=== PATIENT | male | born 1965 | race African-American/Black ===

== ENCOUNTER 2021-07-12 05:41 | Outpatient (CLI) | payer MEDICARE, MEDICAID ==
[~2021-07-12] VITALS: Ht 185.5 cm; Wt 103.6 kg
[2021-07-12] MEDS ORDERED: LAMO100T5 PO (14:22)
[2021-07-12] MEDS ORDERED: MIRT45TA PO (14:22)
[2021-07-12] MEDS ORDERED: TIZA2CAP9 PO (14:22)
[2021-07-12] MEDS ORDERED: DEUT9TAB PO (14:22)
[2021-07-12] MEDS ORDERED: HYDR50CA3 PO (14:22)
[2021-07-12] MEDS ORDERED: CYCL10TA9 PO (14:22)
[2021-07-12] MEDS ORDERED: BUDE10.22 IH (14:22)
[2021-07-12] MEDS ORDERED: OMEP40CA6 PO (14:22)
[2021-07-12] MEDS ORDERED: CETI10TA23 PO (14:22)
[2021-07-12] MEDS ORDERED: LITH150C PO (14:22)
[2021-07-12] MEDS ORDERED: BENZ0.5T42 PO (14:22)
[2021-07-12] MEDS ORDERED: AMLO-250 PO (14:22)
== END 2021-07-13 08:16 | disposition home or self-care (01) ==
LOC: PREOP 05:41
PROVIDERS: ATTEND Surgery
DX: Z01.818 Encounter for other preprocedural examination (principal)

== ENCOUNTER → 2021-07-16 | Outpatient (CLI) | payer MEDICARE, MEDICAID ==
[~2021-07-16] MED LIST: AMLO-250 PO; BENZ0.5T42 PO; BUDE10.22 IH; CETI10TA23 PO; CYCL10TA9 PO; DEUT9TAB PO; HYDR50CA3 PO; LAMO100T5 PO; LITH150C PO; MIRT45TA PO; OMEP40CA6 PO; TIZA2CAP9 PO
== END ==
LOC: LAB FS 10:10
PROVIDERS: ATTEND Surgery
DX: Z01.812 Encounter for preprocedural laboratory examination (principal); Z12.11 Encounter for screening for malignant neoplasm of colon; K21.9 Gastro-esophageal reflux disease without esophagitis; Z20.822 Contact with and (suspected) exposure to COVID-19
CPT/HCPCS: 87635

== ENCOUNTER 2021-07-19 08:34 | Day surgery (SDC) | payer MEDICARE, MEDICAID ==
[~2021-07-19] VITALS: Ht 185.5 cm; Wt 103.6 kg
[2021-07-19] MEDS ORDERED: LACTATED RINGERS 1,000 ML IV ONE (08:38)
[2021-07-19 08:55] VITALS: BP 155/95
--- NOTE | 2021-07-19 09:23 | Progress Note-Pre Operative ---
Pre-Operative Progress Note H&P Reviewed The H&P was reviewed, patient examined and no changes noted. Time Seen by Provider: 09:21 Date H&P Reviewed: Jul 19, 2021 Time H&P Reviewed: 09:21 Pre-Operative Diagnosis: GERD, Screening colonoscopy, change in bowel habits, Family hx of colon CA RICKY TRAYLOR DO Jul 19, 2021 09:23
[2021-07-19 09:38] LABS: AMPHETAMINE SCREEN, URINE NEGATIVE (NEGATIVE); BARBITURATE SCREEN URINE NEGATIVE (NEGATIVE); BENZODIAZEPINES SCREEN URINE NEGATIVE (NEGATIVE); CANNABINOID SCREEN, URINE POSITIVE (NEGATIVE); COCAINE SCREEN URINE NEGATIVE (NEGATIVE); METHADONE STAT NEGATIVE (NEGATIVE); METHAMPHETAMINE SCREEN URINE S NEGATIVE (NEGATIVE); OPIATE SCREEN URINE NEGATIVE (NEGATIVE); OXYCODONE STAT NEGATIVE (NEGATIVE); PROPOXYPHENE STAT NEGATIVE (NEGATIVE); TRICYCLIC ANTIDEPRESSANTS SCRE NEGATIVE (NEGATIVE)
[2021-07-19] MEDS ORDERED: PROPOFOL INJECTION 50 ML IV ONE (09:56)
--- NOTE | 2021-07-19 10:26 | Anesthesia-General Post-Op ---
MAC Patient Condition Mental Status/LOC: Same as Preop Cardiovascular: Satisfactory Nausea/Vomiting: Absent Respiratory: Satisfactory Pain: Controlled Complications: Absent Post Op Complications Complications None Follow Up Care/Instructions Patient Instructions None needed. Anesthesiology Discharge Order Discharge Order Patient is doing well, no complaints, stable vital signs, no apparent adverse anesthesia problems. No complications reported per nursing. CHUCK WRIGHT CRNA Jul 19, 2021 10:26
--- NOTE | 2021-07-19 10:28 | Progress Note-Post Operative ---
Post-Operative Progess Note Surgeon (s)/Cardroom Worker (s) Surgeon RICKY TRAYLOR DO Cardroom Worker: None Pre-Operative Diagnosis GERD, Screening colonoscopy, change in bowel habits, Family hx of colon CA Post-Operative Diagnosis Gastritis Esophagitis Lg hiatal hernia poor prep int hemorrhoids Procedure & Operative Findings Date of Procedure 07/19/21 Procedure Performed/Findings EGD with bx Colonoscopy PROCEDURE NOTE: After informed consent was obtained, the patient was brought to the endoscopy suite, placed in bed in left lateral decubitus position. He was administered IV sedation by the BIRD TRAPPER who then monitored vitals the entire time, heart rate, blood pressure and pulse ox and the scope was inserted down the mouth through the esophagus into the stomach. On the way down, noted some esophagitis and a hiatal hernia; took a picture. Then pushed into the stomach and noted some Gastritis; pushed past the antrum into the duodenum, duodenum looked good. Pulled back and did a biopsy of the antrum. Then retroflexed the scope and saw a large hiatal hernia, took a picture of this and noted esophagitis. Pulled the scope into the GE junction, took another picture of the hiatal hernia and then did a biopsy of the GE junction. Pushed the scope back into the stomach, suctioned all the air out of the stomach. At this point pulled the scope up the esophagus and out the mouth. Switched camera, switched gloves, went down below, started the colonoscopy. Pushed in, but immediately noted formed stool, took pictures. Unable to get all the way to cecum because of the stool but able to get past hepatic flexure. Elected to slowly withdrew the scope, insufflating to look circumferentially at the melendez up the ascending colon to the hepatic flexure, then down the transverse colon (which was actually clean) to the splenic flexure, into the descending colon, down into the sigmoid and finally into the rectum. Again this area was almost completely occluded with formed stool. The patient tolerated the procedure and he recovered in the endoscopy suite. Anesthesia Type IV sedation by BIRD TRAPPER Estimated Blood Loss Estimated blood loss (mL): scant Specimens/Packing Specimens Removed antral bx Body of stomach bx GE jxn bx RICKY TRAYLOR DO Jul 19, 2021 10:28
[2021-07-19 10:30] VITALS: BP 127/79
--- NOTE | 2021-07-19 10:32 | Endoscopy Discharge Instruct ---
Endo Procedure/Findings Findings 1.: Hiatal Hernia 2.: Gastritis (and Esophagitis) 3.: Other Findings (Poor prep) 4.: Internal Hemorrhoids Discharge Instructions - Activity: You might feel a little sleepy until tomorrow. This is due to the medicine you received to relax you. Until tomorrow, you should: NOT drive a car, operate machinery or power tools. NOT drink any alcoholic beverages. NOT make any important decisions or sign importortant papers. Do not return to work until tomorrow, unless otherwise instructed. Resume previous activities tomorrow. Diet: Start by taking liquids. If you tolerate liquids, advance to solid food. 1.: EGD in 1 year 2.: Colonoscopy in 1 year (or sooner, unable to clear colon and therefore there could be polyps missed. In addition, unable to get to cecum because of retained fecal material.) Notify Physician - If you experience excessive bleeding, unusual abdominal pain, fever, or chest pain, contact your doctor immediately. RICKY TRAYLOR DO Jul 19, 2021 10:32
[2021-07-19 10:35] VITALS: BP 147/97
[2021-07-19 10:40] VITALS: BP 150/98
[2021-07-19 11:05] VITALS: BP 150/98
== END 2021-07-19 11:19 | disposition home or self-care (01) ==
LOC: ENDO 08:34
PROVIDERS: ATTEND Surgery
DX: R19.4 Change in bowel habit (principal); R19.7 Diarrhea, unspecified; K29.70 Gastritis, unspecified, without bleeding; K21.00 Gastro-esophageal reflux disease with esophagitis, without bleeding; K44.9 Diaphragmatic hernia without obstruction or gangrene; K64.8 Other hemorrhoids; I10 Essential (primary) hypertension; F32.9 Major depressive disorder, single episode, unspecified; Z87.891 Personal history of nicotine dependence; Z80.0 Family history of malignant neoplasm of digestive organs; Z79.899 Other long term (current) drug therapy; Z98.890 Other specified postprocedural states
CPT/HCPCS: 80306

== ENCOUNTER 2021-09-26 13:53 | Inpatient (IN) | payer MEDICARE, MEDICAID ==
[~2021-09-26] VITALS: Ht 185.4 cm; Wt 96.2 kg
[~2021-09-26 13:53] MED LIST changes: -CETI10TA23 PO; +CETI10TA24 PO; +CYCL10TA25 PO; -CYCL10TA9 PO
--- NOTE | 2021-09-26 13:57 | ED General ---
General Chief Complaint: COVID19 Suspect/Confirmed Stated Complaint: COVID POSITIVE Source of Information: Patient History of Present Illness Date Seen by Provider: Sep 26, 2021 Time Seen by Provider: 13:52 Initial Comments 56-year-old male presenting with complaints of shortness of breath, headache, fevers up to 101 Fahrenheit, cough, general malaise. He states that this has been going on for around 2 weeks but worse in the last several days. He had gone to urgent care today and they did a rapid Covid test that was positive. His oxygen saturation was 87 to 88% on room air and he was advised to come to [facility] emergency department. He refused ambulance transport so he came here with his mother. He lives with his mother and they both tested positive today when they were seen at urgent care. He states he has a history of high blood pressure and GERD. He also takes lithium for his mental health. He denies having nausea or vomiting but has had a few loose stools. He has had decreased urine output. He is easily winded and short of breath with exertion in the last couple of days. Timing/Duration: Other (sick for about 2 weeks but worse in last 3-4 days) Severity: Severe Modifying Factors: worse with Movement Associated Systoms: No Chest Pain; Cough, Diaphoresis, Fever/Chills, Headaches, Loss of Appetite, Malaise; No Nausea/Vomiting, No Rash, No Seizure; Shortness of Air; No Syncope; Weakness (general) Allergies and Home Medications Allergies Coded Allergies: No Known Drug Allergies (Unverified , 07/19/21) Patient Home Medication List Home Medication List Reviewed: Yes Amlodipine Besylate (Amlodipine Besylate) 5 Mg Tablet, 5 MG PO DAILY, (Reported) Entered as Reported by: FRANCK ZAYAS on 07/12/21 142 Benztropine Mesylate (Benztropine Mesylate) 0.5 Mg Tablet, 0.5 MG PO DAILY, (Reported) Entered as Reported by: FRANCK ZAYAS on 07/12/21 142 Budesonide/Formoterol Fumarate (Symbicort 80-4.5 Mcg Inhaler) 10.2 Gm Hfa.aer.ad, 2 PUFF IH BID, (Reported) Entered as Reported by: FRANCK ZAYAS on 07/12/21 142 Cetirizine HCl (Cetirizine HCl) 10 Mg Tab.chew, 10 MG PO DAILY, (Reported) Entered as Reported by: FRANCK ZAYAS on 07/12/211421 Cyclobenzaprine HCl (Cyclobenzaprine HCl) 10 Mg Tablet, 10 MG PO DAILY, (Reported) Entered as Reported by: FRANCK ZAYAS on 07/12/211421 Deutetrabenazine (Austedo) 9 Mg Tablet, 9 MG PO DAILY, (Reported) Entered as Reported by: FRANCK ZAYAS on 07/12/211421 Hydroxyzine Pamoate (Hydroxyzine Pamoate) 50 Mg Capsule, 50 MG PO DAILY, (Reported) Entered as Reported by: FRANCK ZAYAS on 07/12/211421 Lamotrigine (Lamotrigine) 100 Mg Tablet, 100 MG PO HS, (Reported) Entered as Reported by: FRANCK ZAYAS on 07/12/211421 [place] Carbonate ([place] Carbonate) 150 Mg Capsule, 150 MG PO DAILY, (Reported) Entered as Reported by: FRANCK ZAYAS on 07/12/211421 Mirtazapine (Mirtazapine) 45 Mg Tab.rapdis, 45 MG PO DAILY, (Reported) Entered as Reported by: FRANCK ZAYAS on 07/12/211421 Omeprazole (Omeprazole) 40 Mg Capsule.dr, 40 MG PO DAILY, (Reported) Entered as Reported by: FRANCK ZAYAS on 07/12/211421 Tizanidine HCl (Tizanidine HCl) 2 Mg Capsule, 2 MG PO DAILY, (Reported) Entered as Reported by: FRANCK ZAYAS on 07/12/211421 Review of Systems Review of Systems Constitutional: chills, diaphoresis, fever, malaise EENTM: hoarseness, nose congestion Respiratory: cough, short of breath; No stridor, No wheezing Cardiovascular: No chest pain; palpitations Gastrointestinal: see HPI; No nausea, No vomiting Genitourinary: decreased output Musculoskeletal: other (general body aches) Skin: No rash Psychiatric/Neurological: See HPI Past Kpxzooe-Pvgxvt-Itealp Hx Seasonal Allergies Seasonal Allergies: Yes Past Medical History Surgeries: No Respiratory: No Currently Using CPAP: No Cardiac: Yes Hypertension Neurological: No Sexually Transmitted Disease: No Genitourinary: No Gastrointestinal: No Musculoskeletal: No Endocrine: No HEENT: No Cancer: No Psychosocial: No Integumentary: No Blood Disorders: No Physical Exam Vital Signs Vital Signs - First Documented 09/26/21 14:08 Temp 35.9 Pulse 108 Resp 21 B/P (MAP) 175/115 (135) Pulse Ox 92 O2 Delivery Nasal Cannula O2 Flow Rate 3.00 Capillary Refill : Height, Weight, BMI Height: '" Weight: lbs. oz. kg; 30.10 BMI Method: General Appearance: Mild Distress HEENT: PERRL/EOMI; No Moist Mucous Membranes (dry mucous membranes); Pharyngeal Erythema; No Photophobia, No Tonsillar Exudate Neck: Full Range of Motion, Normal Inspection, Non Tender, Supple Respiratory: Chest Non Tender, Accessory Muscle Use, Decreased Breath Sounds, Rhonci; No Stridor, No Wheezing Cardiovascular: Normal Peripheral Pulses, Tachycardia Gastrointestinal: Normal Bowel Sounds, No Pulsatile Mass, Non Tender, Soft Rectal: Deferred Back: No CVA Tenderness Extremity: Normal Capillary Refill, Normal Inspection, No Pedal Edema Neurologic/Psychiatric: Alert, Oriented x3, 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 II-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 Norm as Tested Skin: Normal Color, Warm/Dry Focused Exam Sepsis Stage: Sepsis Possible Source: Pulmonary Lactate Level 09/26/21 14:50: Lactic Acid Level 4.15*H Time of Focused Exam: 15:42 Respiratory: Chest Non Tender, No Accessory Muscle Use, No Respiratory Distress, Decreased Breath Sounds, Rhonci; No Stridor, No Wheezing Cardiovascular: Regular Rate, Rhythm, Normal Peripheral Pulses Capillary Refill: Less Than 3 Seconds Peripheral Pulses: 2+ Radial Pulses (R) Skin: normal color, warm/dry Lactic Acid Level Laboratory Tests Test 09/26/21 14:50 Lactic Acid Level 4.15 MMOL/L (0.50-2.00) *H Within 3hrs of presentation: Admin fluids, Admin ABX, Blood cultures prior to ABX's, Focus exam, Lactate level Progress/Results/Core Measures Suspected Sepsis SIRS Temperature: Pulse: Respiratory Rate: Laboratory Tests 09/26/21 14:08: White Blood Count 9.8 Blood Pressure / Mean: 09/26/21 14:50: Lactic Acid Level 4.15*H Laboratory Tests 09/26/21 14:08: Creatinine 1.41H, INR Comment 0.9, Platelet Count 310, Total Bilirubin 0.7 Results/Orders Lab Results Laboratory Tests Test 09/26/21 14:08 09/26/21 14:25 09/26/21 14:50 Range/Units White Blood Count 9.8 4.3-11.0 10^3/uL Red Blood Count 5.95 H 4.30-5.52 10^6/uL Hemoglobin 18.0 H 13.3-17.7 g/dL Hematocrit 53 40-54 % Mean Corpuscular Volume 90 80-99 fL Mean Corpuscular Hemoglobin 30 25-34 pg Mean Corpuscular Hemoglobin Concent 34 32-36 g/dL Red Cell Distribution Width 13.1 10.0-14.5 % Platelet Count 310 130-400 10^3/uL Mean Platelet Volume 9.9 9.0-12.2 fL Immature Granulocyte % (Auto) 1 % Neutrophils (%) (Auto) 73 42-75 % Lymphocytes (%) (Auto) 20 12-44 % Monocytes (%) (Auto) 6 0-12 % Eosinophils (%) (Auto) 0 0-10 % Basophils (%) (Auto) 0 0-10 % Neutrophils # (Auto) 7.2 1.8-7.8 X 10^3 Lymphocytes # (Auto) 1.9 1.0-4.0 X 10^3 Monocytes # (Auto) 0.6 0.0-1.0 X 10^3 Eosinophils # (Auto) 0.0 0.0-0.3 10^3/uL Basophils # (Auto) 0.0 0.0-0.1 10^3/uL Immature Granulocyte # (Auto) 0.1 0.0-0.1 10^3/uL Prothrombin Time 13.0 12.2-14.7 SEC INR Comment 0.9 0.8-1.4 Activated Partial Thromboplast Time 33 24-35 SEC Sodium Level 137 135-145 MMOL/L Potassium Level 4.6 3.6-5.0 MMOL/L Chloride Level 99 98-107 MMOL/L Carbon Dioxide Level 19 L 21-32 MMOL/L Anion Gap 19 H 5-14 MMOL/L Blood Urea Nitrogen 22 H 7-18 MG/DL Creatinine 1.41 H 0.60-1.30 MG/DL Estimat Glomerular Filtration Rate 63 BUN/Creatinine Ratio 16 Glucose Level 185 H 70-105 MG/DL Calcium Level 9.4 8.5-10.1 MG/DL Corrected Calcium 9.6 8.5-10.1 MG/DL Total Bilirubin 0.7 0.1-1.0 MG/DL Aspartate Amino Transf (AST/SGOT) 183 H 5-34 U/L Alanine Aminotransferase (ALT/SGPT) 72 H 0-55 U/L Alkaline Phosphatase 73 40-136 U/L Troponin I < 0.30 <0.30 NG/ML C-Reactive Protein 21.43 H <0.50 MG/DL Total Protein 7.8 6.4-8.2 GM/DL Albumin 3.7 3.2-4.5 GM/DL Blood Gas Puncture Site LEFT RADIAL Blood Gas Patient Temperature 35.9 Arterial Blood pH 7.42 7.37-7.43 Arterial Blood Partial Pressure CO2 26 L 35-45 MMHG Arterial Blood Partial Pressure O2 53 L 79-93 MMHG Arterial Blood HCO3 17 *L 23-27 MMOL/L Arterial Blood Total CO2 17.7 L 21.0-31.0 MMOL/L Arterial Blood Oxygen Saturation 88 L 94-100 % Arterial Blood Base Excess -6.1 L -2.5-2.5 MMOL/L Jordy Test NEGATIVE Blood Gas Ventilator Setting NO Blood Gas Inspired Oxygen 3 L Lactic Acid Level 4.15 *H 0.50-2.00 MMOL/L My Orders Orders - JANELLE BAJWA MD Monitor-Rhythm Ecg Trace Only (09/26/21 14:14) Ed Iv/Invasive Line Start (09/26/21 14:14) Cbc With Automated Diff (09/26/21 14:14) Comprehensive Metabolic Panel (09/26/21 14:14) Crp Fs (09/26/21 14:14) Troponin I Fs (09/26/21 14:14) Protime With Inr (09/26/21 14:14) Partial Thromboplastin Time (09/26/21 14:14) Ekg Tracing (09/26/21 14:14) Arterial Blood Gas (09/26/21 14:14) Ns Iv 1000 Ml (Sodium Chloride 0.9%) (09/26/21 14:15) Acetaminophen Tablet/Caplet (Tylenol T (09/26/21 14:15) Covid-19 External Lab Results (09/26/21 14:14) Isolation Central Supply Req (09/26/21 14:14) Ua Culture If Indicated (09/26/21 14:14) Chest 1 View Ap/Pa Only (09/26/21 14:14) Albuterol Inhaler (Albuterol) (09/26/21 14:14) Blood Culture (09/26/21 14:48) Lactic Acid Analyzer (09/26/21 14:48) Ns Iv 1000 Ml (Sodium Chloride 0.9%) (09/26/21 15:16) Dexamethasone Injection (Decadron Inje (09/26/21 15:50) Azithromycin Injection (Zithromax Inject (09/26/21 15:50) Ceftriaxone (Rocephin) (09/26/21 15:50) Medications Given in ED Current Medications Medications Dose Ordered Sig/Skylar Route Start Time Stop Time Status Last Admin Dose Admin Acetaminophen 650 mg ONCE ONCE PO 09/26/21 14:15 09/26/21 14:19 DC 09/26/21 14:49 650 MG Vital Signs/I&O 09/26/21 14:08 Temp 35.9 Pulse 108 Resp 21 B/P (MAP) 175/115 (135) Pulse Ox 92 O2 Delivery Nasal Cannula O2 Flow Rate 3.00 Capillary Refill : Progress Note #1: Progress Note Placed on supplemental oxygen since his oxygen saturations on arrival were 87 to 88% on room air. Obtain labs including blood cultures and lactic acid. Obtain ABG to evaluate his oxygenation. Give IV fluids for hydration. Allow him to try drinking fluids as well. Chest x-ray to evaluate his lungs. Telemetry jean toring for his rhythm. Differential diagnosis includes Covid pneumonia, sepsis, dehydration, pulmonary embolism, renal failure, liver failure Progress Note #2: Progress Note White blood cell count is normal at 9.8 but does have a left shift. His chemistry panel shows elevated lactic acid of 4.15 and a creatinine up to 1.41. His CRP is elevated as well. His troponin is negative. His electrocardiogram shows sinus tachycardia without ST elevation. His chest x-ray shows diffuse bilateral pulmonary infiltrates for pneumonia. The ABG shows he was hypoxic with an pH of 7.42, PCO2 26, PO2 of 53, bicarb of 17, O2 sat of 88 and this was on 3 L. His heart rate and blood pressure were improving with IV fluids. After breathing treatment with albuterol inhaler and spacer his oxygen saturation did briefly improve to the upper 90s otherwise he has been hovering around 92 to 93% on 3 L. Counseled patient that admission to the hospital would be warranted with his evidence of Covid pneumonia, hypoxia, sepsis. We will repeat another liter of NS to help with sepsis and hydration. Give decadron and cover with antibiotics as well as check with Dr. Montana the auto suspension and steering mechanic doctor for [facility] since pt reports following with Nurse Practitioner Berto at [facility]. ECG Initial ECG Impression Date: Sep 26, 2021 Initial ECG Impression Time: 14:08 Initial ECG Rate: 106 Initial ECG Rhythm: S.Tach Initial ECG Comparisson: No Previous ECG Available Comment Sinus tachycardia with heart rate of 106 bpm. TN interval [address] elevation. QT interval 309 ms with a QTc interval 411 ms. There is no prior tracing available for comparison. Diagnostic Imaging Diagonstic Imaging: Xray Plain Films/CT/US/NM/MRI: chest Comments [facility]. [place], [place] NAME: RICKY GROVES [facility] REC#: [id number] PT STATUS: REG ER : 1965 PHYSICIAN: JANELLE BAJWA MD ADMIT DATE: 09/26/21/ER FS Signed Date of Exam:09/26/21 CHEST 1 VIEW AP/PA ONLY INDICATION: Covid positive. Shortness of breath low O2 saturation. EXAMINATION: Chest, 09/26/2021. FINDINGS: There are patchy scattered airspace opacities throughout both lungs consistent with infiltrates. There are no effusions. There is no pneumothorax. The heart is unremarkable. Pulmonary vasculature is slightly congested. IMPRESSION: Diffuse bilateral infiltrates. Dictated by: Dictated on workstation # [id number] Dict: 09/26/21 1440 Trans: 09/26/21 1500 [facility] [id number] Interpreted by: MICHAEL CACERES MD Electronically signed by: MICHAEL CACERES MD 09/26/21 1500 Reviewed: Reviewed by Me Departure Communication (Admissions) Time/Spoke to Admitting Phy: 16:00 d/w Dr. Montana, auto suspension and steering mechanic physician for [facility] as the patient reports following with Nurse Practitioner Berto in [facility]. She accepted admit for [place] and will continue IVF, antibiotics, supplemental oxygen, albuterol inhaler, steroids. Treat for Covid and sepsis and pneumonia. Impression Primary Impression: Acute respiratory failure due to severe acute respiratory syndrome coronavirus 2 (SARS-CoV-2) infection Additional Impressions: Hypoxia Sepsis Qualified Codes: A41.9 - Sepsis, unspecified organism Pneumonia due to COVID-19 virus Dehydration Renal insufficiency Disposition: 30 STILL A PATIENT Condition: Stable Admissions Decision to Admit Reason: Admit from ER (General) Decision to Admit/Date: Sep 26, 2021 Time/Decision to Admit Time: 16:00 Departure-Patient Inst. Referrals: NO,LOCAL PHYSICIAN (PCP) Primary Care Physician SHIREEN GOMEZ APRN (Family) Primary Care Physician JANELLE BAJWA MD Sep 26, 2021 13:57
[2021-09-26] MEDS ORDERED: RT-ALBUTEROL HFA 8.5 GM INHALER IH STA (14:14)
[2021-09-26] MEDS ORDERED: NS IV 1000 ML 1,000 ML IV SCH ×2 (14:15→23:00)
[2021-09-26] MEDS ORDERED: ACETAMINOPHEN 325 MG TABLET PO ONE (14:15)
[2021-09-26 14:25] LABS: HEMATOCRIT 53 % (40-54); MEAN CORPUSCULAR HEMOGLOBIN 30 pg (25-34); MEAN CORPUSCULAR HGB CONC 34 g/dL (32-36); MEAN CORPUSCULAR VOLUME 90 fL (80-99); PLATELET COUNT 310 10^3/uL (130-400); WHITE BLOOD COUNT 9.8 10^3/uL (4.3-11.0)
[2021-09-26 14:26] LABS: BASOPHILS % (AUTO) 0 % (0-10); EOSINOPHILS % (AUTO) 0 % (0-10); LYMPHOCYTES # (AUTO) 1.9 X 10^3 (1.0-4.0); LYMPHOCYTES % (AUTO) 20 % (12-44); MEAN PLATELET VOLUME 9.9 fL (9.0-12.2); MONOCYTES # (AUTO) 0.6 X 10^3 (0.0-1.0); MONOCYTES % (AUTO) 6 % (0-12); NEUTROPHILS # (AUTO) 7.2 X 10^3 (1.8-7.8); NEUTROPHILS % (AUTO) 73 % (42-75)
[2021-09-26 14:34] LABS: ABG BASE EXCESS -6.1 MMOL/L (-2.5-2.5); ABG OXYGEN SATURATION 88 % (94-100); ABG PCO2 26 MMHG (35-45); ABG PH 7.42 (7.37-7.43); ABG PO2 53 MMHG (79-93); ABG TCO2 17.7 MMOL/L (21.0-31.0)
[2021-09-26 14:35] LABS: ALLENS TEST NEGATIVE; INSPIRED O2 3 L; VENTILATOR NO
[2021-09-26 14:40] LABS: ALANINE AMINOTRANSFERASE 72 U/L (0-55); ALBUMIN 3.7 GM/DL (3.2-4.5); ALKALINE PHOSPHATASE 73 U/L (40-136); BILIRUBIN,TOTAL 0.7 MG/DL (0.1-1.0); BUN/CREATININE RATIO 16; CALCIUM 9.4 MG/DL (8.5-10.1); CARBON DIOXIDE 19 MMOL/L (21-32); CHLORIDE 99 MMOL/L (98-107); CREATININE SERUM 1.41 MG/DL (0.60-1.30); GFR ESTIMATED 63; GLUCOSE 185 MG/DL (70-105); POTASSIUM 4.6 MMOL/L (3.6-5.0); SODIUM 137 MMOL/L (135-145); TOTAL PROTEIN 7.8 GM/DL (6.4-8.2)
[2021-09-26 14:42] LABS: INR 0.9 (0.8-1.4)
[2021-09-26 14:44] LABS: PATIENT TEMP 35.9
--- NOTE | 2021-09-26 14:47 | Diagnostic Imaging Report ---
INDICATION: Covid positive. Shortness of breath low O2 saturation. EXAMINATION: Chest, 09/26/2021. FINDINGS: There are patchy scattered airspace opacities throughout both lungs consistent with infiltrates. There are no effusions. There is no pneumothorax. The heart is unremarkable. Pulmonary vasculature is slightly congested. IMPRESSION: Diffuse bilateral infiltrates. Dictated by: Dictated on workstation # [id number]
[2021-09-26] MEDS ORDERED: NS IV 1000 ML 1,000 ML IV STA (15:16)
[2021-09-26] MEDS ORDERED: cefTRIAXone 1,000 MG in WATER (STERILE) FOR INJECTION 5 ML IV STA (15:50)
[2021-09-26] MEDS ORDERED: AZITHROMYCIN INJECTION 500 MG in NS (IVPB) 250 ML IV STA (15:50)
[2021-09-26 17:25] VITALS: BP 137/88
[2021-09-26] MEDS ORDERED: ONDANSETRON 4 MG/5 ML ORAL SOLN (ZOFRAN) 5 ML PO PRN (18:00)
[2021-09-26] MEDS ORDERED: ONDANSETRON 4 MG/2 ML (SDV) Z0FRAN IV PRN (18:00)
[2021-09-26] MEDS ORDERED: HYDROcodone/APAP 7.5 MG/325 MG (LORTAB, LORCET PLUS) TABLET PO PRN (18:00)
[2021-09-26] MEDS ORDERED: ACETAMINOPHEN 325 MG TABLET PO PRN ×2 (18:00)
[2021-09-26 19:02] LABS: BASOPHILS % (AUTO) 0 % (0-10); EOSINOPHILS % (AUTO) 0 % (0-10); HEMATOCRIT 47 % (40-54); HEMOGLOBIN 15.4 g/dL (13.3-17.7); LYMPHOCYTES # (AUTO) 0.9 10^3/uL (1.0-4.0); LYMPHOCYTES % (AUTO) 12 % (12-44); MEAN CORPUSCULAR HEMOGLOBIN 30 pg (25-34); MEAN CORPUSCULAR HGB CONC 33 g/dL (32-36); MEAN CORPUSCULAR VOLUME 90 fL (80-99); MEAN PLATELET VOLUME 10.2 fL (9.0-12.2); MONOCYTES # (AUTO) 0.4 10^3/uL (0.0-1.0); MONOCYTES % (AUTO) 4 % (0-12); NEUTROPHILS # (AUTO) 6.5 10^3/uL (1.8-7.8); NEUTROPHILS % (AUTO) 82 % (42-75); PLATELET COUNT 263 10^3/uL (130-400); WHITE BLOOD COUNT 7.9 10^3/uL (4.3-11.0)
[2021-09-26 19:10] LABS: ALBUMIN 3.1 GM/DL (3.2-4.5); POTASSIUM 4.4 MMOL/L (3.6-5.0)
[2021-09-26 19:13] LABS: TOTAL PROTEIN 5.9 GM/DL (6.4-8.2)
[2021-09-26 19:15] LABS: BILIRUBIN,TOTAL 0.5 MG/DL (0.1-1.0)
[2021-09-26 19:16] LABS: CREATININE SERUM 1.1 MG/DL (0.60-1.30)
[2021-09-26 19:44] VITALS: BP 130/76
[2021-09-26] MEDS: ENOXAPARIN 40 MG/0.4 ML (LOVENOX) SYR SC SCH (21:24)
[2021-09-26] MEDS: NS IV 1000 ML 1,000 ML IV SCH ×2 (21:24→22:48)
[2021-09-27 00:19] VITALS: BP 124/71
[2021-09-27 04:53] VITALS: BP 135/81
[2021-09-27] MEDS ORDERED: FLU QUADRIvalent (3YOA+) 60 mcg/0.5 ml 2021-22(AFLURIA) IM ONE (07:00)
[2021-09-27 07:07] LABS: BASOPHILS % (AUTO) 0 % (0-10); EOSINOPHILS % (AUTO) 0 % (0-10); HEMATOCRIT 46 % (40-54); HEMOGLOBIN 15.1 g/dL (13.3-17.7); LYMPHOCYTES # (AUTO) 1.1 10^3/uL (1.0-4.0); LYMPHOCYTES % (AUTO) 17 % (12-44); MEAN CORPUSCULAR HEMOGLOBIN 30 pg (25-34); MEAN CORPUSCULAR HGB CONC 33 g/dL (32-36); MEAN CORPUSCULAR VOLUME 93 fL (80-99); MEAN PLATELET VOLUME 9.8 fL (9.0-12.2); MONOCYTES # (AUTO) 0.3 10^3/uL (0.0-1.0); MONOCYTES % (AUTO) 5 % (0-12); NEUTROPHILS % (AUTO) 76 % (42-75); PLATELET COUNT 286 10^3/uL (130-400); WHITE BLOOD COUNT 6.6 10^3/uL (4.3-11.0)
--- NOTE | 2021-09-27 07:18 | Diagnostic Imaging Report ---
INDICATION: Pneumonia. Comparison made with prior examination of 09/26/2021. FINDINGS: The heart size is normal. There are patchy bilateral pulmonary infiltrates. No pleural effusion or pneumothorax. Mediastinum is unremarkable. IMPRESSION: Increasing diffuse bilateral patchy pulmonary infiltrates likely groundglass. This is suspect for atypical pneumonia, possibly COVID. Recommend clinical correlation. Dictated by: Dictated on workstation # [id number]
[2021-09-27 07:28] LABS: ALBUMIN 3.1 GM/DL (3.2-4.5); BILIRUBIN,TOTAL 0.6 MG/DL (0.1-1.0); CREATININE SERUM 1.02 MG/DL (0.60-1.30); POTASSIUM 4.4 MMOL/L (3.6-5.0); TOTAL PROTEIN 6.1 GM/DL (6.4-8.2)
[2021-09-27] MEDS ORDERED: RT-ALBUTEROL HFA 8.5 GM INHALER IH PRN (07:45)
[2021-09-27 08:03] VITALS: BP 133/75
[2021-09-27 08:44] LABS: ABG BASE EXCESS -9.6 MMOL/L (-2.5-2.5); ABG OXYGEN SATURATION 93 % (94-100); ABG PCO2 27 MMHG (35-45); ABG PH 7.36 (7.37-7.43); ABG PO2 72 MMHG (79-93); ABG TCO2 15.7 MMOL/L (21.0-31.0)
[2021-09-27 08:53] LABS: ALLENS TEST YES-POS; INSPIRED O2 40; PATIENT TEMP 36.4; VENTILATOR NO
[2021-09-27] MEDS ORDERED: AZITHROMYCIN INJECTION 250 MG in NS (IVPB) 250 ML IV SCH (09:00)
--- NOTE | 2021-09-27 10:35 | History & Physical-Hospitalist ---
History of Present Illness HPI/Chief Complaint CC: Covid-19 acute hypoxic respiratory failure HPI: This ia 56yo mentally disabled WM who presented with Covid-19 with hypoxia and sepsis. elevated Lactic acid of 4 resolved with IV fluids. Actemra indicated due to progression and could be at risk for intubation. Remains on Vapotherm 40/100 and titrating down to 90. Source: patient Exam Limitations: no limitations Date Seen 09/27/21 Time Seen by a Provider: 11:00 Attending Physician Paula Montana DO PCP No,Local Physician Referring Physician Date of Admission Sep 26, 2021 at 17:25 Home Medications & Allergies Home Medications Reviewed patient Home Medication Reconciliation performed by pharmacy medication reconciliations floor care technician and/or nursing. Patients Allergies have been reviewed. Allergies Allergies Coded Allergies No Known Drug Allergies (Unverified07/19/21) Past Lgwqvrx-Mrpfcn-Ybnxpd Hx Patient Social History Marrital Status: single Employed/Student: unemployed Tobacco Use?: No Smoking Status: Former Smoker Use of E-Cig and/or Vaping dev: No Substance use?: No Alcohol Use?: No Pt feels they are or have been: No Immunizations Up To Date First/Initial COVID19 Vaccinat: Not currently vaccinated Seasonal Allergies Seasonal Allergies: Yes Current Status Advance Directives: No Communicates: Verbally Primary Language: Ukrainian Preferred Spoken Language: Ukrainian Is interpretation needed?: No Past Medical History Currently Using CPAP: No Hypertension Developmental Disorder Sexually Transmitted Disease: No Bipolar, Schizophrenia Blood Disorders: No Review of Systems Constitutional: see HPI, malaise, weakness EENTM: no symptoms reported Respiratory: dyspnea on exertion, short of breath, wheezing (520) Cardiovascular: no symptoms reported Gastrointestinal: no symptoms reported Genitourinary: no symptoms reported Musculoskeletal: no symptoms reported Skin: no symptoms reported Psychiatric/Neurological: No Symptoms Reported All Other Systems Reviewed Negative Unless Noted: Yes Physical Exam Physical Exam Vital Signs Vital Signs - First Documented 09/26/21 09/27/21 14:08 07:18 Temp 35.9 Pulse 108 Resp 21 B/P (MAP) 175/115 (135) Pulse Ox 92 O2 Delivery Nasal Cannula O2 Flow Rate 3.00 FiO2 100 Capillary Refill : Less Than 3 Seconds Height, Weight, BMI Height: '" Weight: lbs. oz. kg; 30.00 BMI Method: General Appearance: WD/WN, Anxious, Chronically ill, Mild Distress Eyes: Right Eye Normal Inspection, Right Eye PERRL HEENT: PERRL/EOMI, Normal ENT Inspection, Pharynx Normal, Moist Mucous Membranes Neck: Full Range of Motion, Normal Inspection, Non Tender Respiratory: Chest Non Tender, Lungs Clear, No Respiratory Distress, Accessory Muscle Use, Decreased Breath Sounds Cardiovascular: Regular Rate, Rhythm, No Edema, No Gallop, No JVD, No Murmur, Normal Peripheral Pulses Gastrointestinal: Normal Bowel Sounds, No Organomegaly, No Pulsatile Mass, Non Tender, Soft Back: Normal Inspection, No CVA Tenderness, No Vertebral Tenderness Extremity: Normal Capillary Refill, Normal Inspection, Normal Range of Motion, Non Tender, No Calf Tenderness, No Pedal Edema Neurologic/Psychiatric: Alert, Oriented x3, No Motor/Sensory Deficits, Normal Mood/Affect Skin: Normal Color, Warm/Dry Lymphatic: No Adenopathy Results Results/Procedures Labs Laboratory Tests 09/26/21 14:08 09/26/21 18:54 09/27/21 07:00 Patient resulted labs reviewed. Assessment/Plan Admission Diagnosis Assessment: Acute hypoxic respiratory failure COVID-19 pneumonia Mental illness on lithium Hypertension Elevated lactic acid on admit status post fluids now resolved we will Hep-Lock to prevent volume overload Plan: Vapotherm Actemra High risk for intubation Hep-Lock IV fluid Home meds Admission Status: Inpatient Order (span 2 midnights) Reason for Inpatient Admission: COVID-19 Diagnosis/Problems Diagnosis/Problems (1) Acute respiratory failure due to severe acute respiratory syndrome coronavirus 2 (SARS-CoV-2) infection Status: Acute (2) Sepsis Status: Acute Qualifiers: Sepsis type: sepsis due to unspecified organism Sepsis acute organ dysfunction status: without acute organ dysfunction Qualified Codes: A41.9 - Sepsis, unspecified organism (3) Hypoxia Status: Acute (4) Dehydration Status: Acute (5) Renal insufficiency Status: Acute PAULA MONTANA DO Sep 27, 2021 10:35
[2021-09-27] MEDS: RT-ALBUTEROL HFA 8.5 GM INHALER IH SCH ×4 (10:51→22:11)
[2021-09-27 11:11] VITALS: BP 132/74
--- NOTE | 2021-09-27 11:52 | Pulmonary Consultation ---
History of Present Illness History of Present Illness Date Seen by Provider: Sep 27, 2021 Time Seen by Provider: 11:50 History of Present Illness 56 y/o M with PMhx significant for Bipolar disorder, HTN, GERD, who presented to ED with c/o of SOB, fevers and general malaise and was found to have rapid test positive for COVID. Patient is unvaccinated. Notes symptoms started >1 week prior to admission. Admitted for acute respiratory failure likely 2/2 covid pneumonia.Labs in ED notable for elevated lactate to 4.15 and creatinine elevated from baseline. CXR notable for bilateral infiltrates. Also noted to h ave decreased UOP In ED required 3L NC for O2 sats in high 80s. Currently on Cetriaxone/Azithromycin for CAP and Dexamethasone/Tocalizumab for Covid pneumonia. Allergies and Home Medications Allergies Coded Allergies: No Known Drug Allergies (Unverified , 07/19/21) Home Medications Amlodipine Besylate 5 Mg Tablet, 5 MG PO DAILY, (Reported) Benztropine Mesylate 0.5 Mg Tablet, 0.5 MG PO DAILY, (Reported) Budesonide/Formoterol Fumarate 10.2 Gm Hfa.aer.ad, 2 PUFF IH BID, (Reported) Cetirizine HCl 10 Mg Tab.chew, 10 MG PO DAILY, (Reported) Cyclobenzaprine HCl 10 Mg Tablet, 10 MG PO DAILY, (Reported) Deutetrabenazine 9 Mg Tablet, 9 MG PO DAILY, (Reported) Hydroxyzine Pamoate 50 Mg Capsule, 50 MG PO DAILY, (Reported) Lamotrigine 100 Mg Tablet, 100 MG PO HS, (Reported) Rosenberg Carbonate 150 Mg Capsule, 150 MG PO DAILY, (Reported) Mirtazapine 45 Mg Tab.rapdis, 45 MG PO DAILY, (Reported) Omeprazole 40 Mg Capsule.dr, 40 MG PO DAILY, (Reported) Tizanidine HCl 2 Mg Capsule, 2 MG PO DAILY, (Reported) Past Medical/Social/Family Hx Patient Social History Tobacco Use?: No Smoking Status: Former Smoker Use of E-Cig and/or Vaping dev: No Substance use?: No Alcohol Use?: No Pt stated abuse/neglect: No Immunizations Up To Date Influenza Vaccine Up-to-Date: No; Not Current First/Initial COVID19 Vaccinat: Not currently vaccinated Current Status Advance Directives: No Communicates: Verbally Primary Language: Albanian Preferred Spoken Language: Albanian Is interpretation needed?: No Review of Systems Constitutional: fever, malaise EENTM: No see HPI, No no symptoms reported, No ear discharge, No hearing loss, No ear pain, No blurred vision, No double vision, No eye pain, No tearing, No vision loss, No dental problems, No hoarseness, No mouth pain, No mouth swe lling, No epistaxis, No nose congestion, No nose pain, No throat pain, No throat swelling, No other Respiratory: see HPI, cough, dyspnea on exertion, short of breath Cardiovascular: No no symptoms reported, No see HPI, No chest pain, No edema, No Hx of Intervention, No palpitations, No syncope, No vascular heart diseas, No other Gastrointestinal: No RUQ, No LUQ, No RLQ, No LLQ, No no symptoms reported, No see HPI, No abdominal pain, No constipation, No diarrhea, No dysphagia, No hematemesis, No heartburn, No jaundice, No loss of appetite, No melena, No nausea, No vomiting, No other Genitourinary: see HPI, decreased output Musculoskeletal: No no symptoms reported; see HPI; No back pain, No gout, No joint pain, No joint swelling, No muscle pain, No muscle stiffness, No muscle cramps, No muscle twitching, No muscle weakness, No neck pain, No other Skin: No no symptoms reported, No see HPI, No change in color, No change in hair/nails, No dryness, No hx of skin cancer, No lesions, No lumps, No pruritus, No rash, No other Sepsis Event Evaluation Height, Weight, BMI Height: '" Weight: lbs. oz. kg; 30.00 BMI Method: Exam Exam Patient acknowledged, consented, and participated in this virtual visit which was conducted using real time audio/video Vital Signs Date Time Temp Pulse Resp B/P (MAP) Pulse Ox O2 Delivery O2 Flow Rate FiO2 09/27/21 11:11 36.2 92 22 132/74 (93) 90 Vapotherm 40.00 90.00 09/27/21 10:51 97 Vapotherm 40.00 100 09/27/21 08:03 36.0 86 24 133/75 (94) 94 Vapotherm 40.00 100.00 09/27/21 08:00 94 Vapotherm 40.00 100 09/27/21 07:36 Vapotherm 40.00 100 09/27/21 07:18 94 Vapotherm 40.00 100 09/27/21 07:10 Nasal Cannula 6.00 09/27/21 07:01 87 Nasal Cannula 5.00 09/27/21 04:53 35.6 76 20 135/81 (99) 95 Nasal Cannula 6.00 09/27/21 03:00 90 Nasal Cannula 4.00 09/27/21 01:00 74 09/27/21 00:19 35.6 78 24 124/71 (88) 91 Nasal Cannula 5.00 09/26/21 20:55 Nasal Cannula 5.00 09/26/21 19:44 36.2 86 20 130/76 (94) 91 Nasal Cannula 4.00 09/26/21 19:00 87 09/26/21 19:00 92 Nasal Cannula 4.00 09/26/21 18:09 Nasal Cannula 3.00 09/26/21 17:25 35.3 92 20 137/88 (104) 93 Nasal Cannula 4.00 09/26/21 16:41 36.2 100 25 130/75 95 Nasal Cannula 3.00 3.00 09/26/21 14:08 35.9 108 21 175/115 (135) 92 Nasal Cannula 3.00 I & O 09/27/21 07:00 Intake Total 1350 ml Balance 1350 ml Height & Weight Height: '" Weight: lbs. oz. kg; 30.00 BMI Method: General Appearance: Mild Distress HEENT: PERRL/EOMI; No Moist Mucous Membranes (dry mucous membranes); Pharyngeal Erythema; No Photophobia, No Tonsillar Exudate Neck: Full Range of Motion, Normal Inspection, Non Tender, Supple Respiratory: Chest Non Tender, No Accessory Muscle Use, No Respiratory Distress, Decreased Breath Sounds, Rhonci; No Stridor, No Wheezing Cardiovascular: Regular Rate, Rhythm, Normal Peripheral Pulses Capillary Refill: Less Than 3 Seconds Peripheral Pulses: 2+ Radial Pulses (R) Extremity: Normal Capillary Refill, Normal Inspection, No Pedal Edema Neurologic/Psychiatric: Alert, Oriented x3, resident hall director II-XII Norm as Tested Skin: Normal Color, Warm/Dry Results Lab Laboratory Tests 09/26/21 14:08 09/26/21 18:54 09/27/21 07:00 09/26/21 14:50: Lactic Acid Level 4.15*H 09/26/21 19:11: Lactic Acid Level 1.99 Radiology 09/27/2021 CHEST 1 VIEW, AP/PA ONLY INDICATION: Pneumonia. Comparison made with prior examination of 09/26/2021. FINDINGS: The heart size is normal. There are patchy bilateral pulmonary infiltrates. No pleural effusion or pneumothorax. Mediastinum is unremarkable. IMPRESSION: Increasing diffuse bilateral patchy pulmonary infiltrates likely groundglass. This is suspect for atypical pneumonia, possibly COVID. Recommend clinical correlation. Assessment/Plan Assessment/Plan 56 y/o M with PMHx significant for Bipolar disorder, HTN, GERD, who presented to ED with c/o of SOB, fevers and general malaise and was found to have rapid test positive for COVID now admitted with acute hypoxia in setting of COVID pneumonia. Unvaccinated and did not get monoclonal antibodies. Patient started on broad spectrum antibiotics for CAP. CXR this morning with persistent bilateral infiltrates. Received 3L IVF which has since beenPer nursing laying on his side however desats upon exertion even when on 40L vapotherm. Attempting to lay patient on side. Current covd therapeis include dexamethasone and tocalizumab. -Agree with concomitant CAP coverage. -Would check inflammatory markers (ferritin, LDH) as patient may be developing cytokine storm. (Ordered) -Order TTE to evaluate baseline LV function (Ordered) -Can trial nocturnal Bipap 12/5 -Minimize fluid intake. -Cont supportive management as noted. Encouraged patient to trial prone positioning FLAVIO VIVEROS MD Sep 27, 2021 11:52
[2021-09-27] MEDS ORDERED: TOCILIZUMAB INJECTION (NON-FOR 400 MG, TOCILIZUMAB INJECTION 200 MG in NS (IVPB) 70 ML IV NR (12:00)
[2021-09-27] MEDS ORDERED: LAMO200T5 PO (12:32)
[2021-09-27] MEDS ORDERED: LTH450TCR PO (12:32)
[2021-09-27] MEDS ORDERED: DEUT9TAB PO (12:32)
[2021-09-27] MEDS ORDERED: TIZA-169 PO (12:32)
[2021-09-27] MEDS ORDERED: RT-ALBUINH INH (12:32)
[2021-09-27] MEDS ORDERED: CETI10TA17 PO (12:32)
[2021-09-27] MEDS ORDERED: MIRT45TA75 PO (12:32)
[2021-09-27] MEDS ORDERED: CALCIUM CARBONATE 500 MG (TUMS) TAB.CHEW PO PRN (14:15)
[2021-09-27 15:32] VITALS: BP 180/85
[2021-09-27] MEDS: cefTRIAXone 2,000 MG in NS (IVPB) 50 ML IV SCH (17:21)
[2021-09-27 19:26] VITALS: BP 131/72
[2021-09-27] MEDS: ENOXAPARIN 40 MG/0.4 ML (LOVENOX) SYR SC SCH (21:11)
[2021-09-28 00:33] VITALS: BP 135/92
[2021-09-28] MEDS: RT-ALBUTEROL HFA 8.5 GM INHALER IH SCH ×6 (02:36→21:44)
[2021-09-28 05:28] VITALS: BP 121/76
[2021-09-28 06:55] LABS: BASOPHILS % (AUTO) 0 % (0-10); EOSINOPHILS % (AUTO) 0 % (0-10); HEMATOCRIT 44 % (40-54); HEMOGLOBIN 14.5 g/dL (13.3-17.7); LYMPHOCYTES # (AUTO) 1.1 10^3/uL (1.0-4.0); LYMPHOCYTES % (AUTO) 11 % (12-44); MEAN CORPUSCULAR HEMOGLOBIN 30 pg (25-34); MEAN CORPUSCULAR HGB CONC 33 g/dL (32-36); MEAN CORPUSCULAR VOLUME 92 fL (80-99); MEAN PLATELET VOLUME 10.3 fL (9.0-12.2); MONOCYTES # (AUTO) 0.4 10^3/uL (0.0-1.0); MONOCYTES % (AUTO) 4 % (0-12); NEUTROPHILS # (AUTO) 8.9 10^3/uL (1.8-7.8); NEUTROPHILS % (AUTO) 83 % (42-75); PLATELET COUNT 342 10^3/uL (130-400); WHITE BLOOD COUNT 10.8 10^3/uL (4.3-11.0)
[2021-09-28 06:56] LABS: ALBUMIN 3.1 GM/DL (3.2-4.5); POTASSIUM 3.8 MMOL/L (3.6-5.0); SMEAR SCAN COMMENT YES
[2021-09-28 06:57] LABS: CALCIUM 8.5 MG/DL (8.5-10.1)
[2021-09-28 06:58] LABS: TOTAL PROTEIN 5.8 GM/DL (6.4-8.2)
[2021-09-28 07:00] LABS: BILIRUBIN,TOTAL 0.7 MG/DL (0.1-1.0)
[2021-09-28 07:02] LABS: CREATININE SERUM 0.87 MG/DL (0.60-1.30)
--- NOTE | 2021-09-28 07:02 | Progress Note - Hospitalist ---
Subjective HPI/CC On Admission Date Seen by Provider: Sep 28, 2021 Time Seen by Provider: 11:30 CC: Covid-19 acute hypoxic respiratory failure HPI: This ia 56yo mentally disabled WM who presented with Covid-19 with hypoxia and sepsis. elevated Lactic acid of 4 resolved with IV fluids. Actemra indicated due to progression and could be at risk for intubation. Remains on Vapotherm 40/100 and titrating down to 90. Subjective/Events-last exam Pt doing a little better Less tachypneic Still on Vapotherm Received Actemra Checked meds and labs Updated Pt on the plan Review of Systems Pulmonary: Dyspnea, Cough Focused Exam Lactate Level 09/26/21 14:50: Lactic Acid Level 4.15*H 09/26/21 19:11: Lactic Acid Level 1.99 Time of Focused Exam: 15:42 Objective Exam Vital Signs Vital Signs Date Time Temp Pulse Resp B/P (MAP) Pulse Ox O2 Delivery O2 Flow Rate FiO2 09/29/21 04:00 36.3 95 38 129/80 (96) 96 Vapotherm 40.00 100.00 09/29/21 02:25 60 Capillary Refill : Less Than 3 Seconds General Appearance: No Apparent Distress, WD/WN, Chronically ill Respiratory: No Accessory Muscle Use, No Respiratory Distress, Decreased Breath Sounds Cardiovascular: Regular Rate, Rhythm Neurologic/Psychiatric: Alert, Oriented x3, No Motor/Sensory Deficits, Normal Mood/Affect Results/Procedures Lab Laboratory Tests 09/28/21 06:24 Patient resulted labs reviewed. Assessment/Plan Assessment and Plan Assess & Plan/Chief Complaint Assessment: Acute hypoxic respiratory failure COVID-19 pneumonia Mental illness on lithium Hypertension Elevated lactic acid on admit status post fluids now resolved we will Hep-Lock to prevent volume overload Plan: Vapotherm Actemra High risk for intubation Hep-Lock IV fluid Home meds 09/28/21: Supportive care Vapotherm wean Diagnosis/Problems Diagnosis/Problems (1) Acute respiratory failure due to severe acute respiratory syndrome coronavirus 2 (SARS-CoV-2) infection Status: Acute (2) Sepsis Status: Acute Qualifiers: Sepsis type: sepsis due to unspecified organism Sepsis acute organ dysfunction status: without acute organ dysfunction Qualified Codes: A41.9 - Sepsis, unspecified organism (3) Hypoxia Status: Acute (4) Dehydration Status: Acute (5) Renal insufficiency Status: Acute GABE COLORADO DO Sep 28, 2021 07:02
[2021-09-28 08:01] VITALS: BP 138/88
[2021-09-28] MEDS: LITHIUM CARB SR 450 MG (ESKALITH-CR) TAB PO SCH ×2 (09:20→22:13)
[2021-09-28] MEDS: PANTOPRAZOLE 40 MG (PROTONIX) TAB PO SCH (09:20)
[2021-09-28] MEDS: LORATADINE (CLARITIN) 10 MG TAB PO SCH (09:20)
[2021-09-28] MEDS: amLODIPine 5 MG (NORVASC) TAB PO SCH (09:20)
[2021-09-28] MEDS: AZITHROMYCIN 250 MG TAB (ZITHROMAX) PO SCH (09:20)
--- NOTE | 2021-09-28 11:50 | Pulmonary Progress Note ---
Subjective Date Seen by a Provider: Sep 28, 2021 Time Seen by a Provider: 11:47 Subjective/Events-last exam No major events overnight. Remains on vapotherm with desaturations noted with exertion. Sepsis Event Evaluation Height, Weight, BMI Height: '" Weight: lbs. oz. kg; 30.00 BMI Method: Focused Exam Lactate Level 09/26/21 14:50: Lactic Acid Level 4.15*H 09/26/21 19:11: Lactic Acid Level 1.99 Time of Focused Exam: 15:42 Exam Exam Patient acknowledged, consented, and participated in this virtual visit which was conducted using real time audio/video Vital Signs Date Time Temp Pulse Resp B/P (MAP) Pulse Ox O2 Delivery O2 Flow Rate FiO2 09/28/21 10:20 94 Vapotherm 30.00 70 09/28/21 08:01 36.4 78 20 138/88 (105) 95 Vapotherm 30.00 70.00 09/28/21 07:00 83 09/28/21 07:00 95 Vapotherm 30.00 70 09/28/21 05:28 36.0 88 20 121/76 (91) 91 Vapotherm 30.00 70.00 09/28/21 02:37 95 Vapotherm 30.00 70 09/28/21 01:00 95 09/28/21 00:33 36.0 79 20 135/92 (106) 96 Vapotherm 30.00 70.00 09/27/21 22:11 95 Vapotherm 30.00 70 09/27/21 20:45 95 Vapotherm 30.00 70 09/27/21 19:26 35.8 85 20 131/72 (91) 93 Vapotherm 30.00 70.00 09/27/21 19:00 80 09/27/21 18:42 92 Vapotherm 30.00 70 09/27/21 15:32 35.2 92 20 180/85 (116) 93 Vapotherm 40.00 80.00 09/27/21 15:29 93 Vapotherm 40.00 80 09/27/21 15:26 96 Vapotherm 40.00 90 09/27/21 13:00 93 I & O 09/28/21 07:00 Intake Total 1420 ml Output Total 1350 ml Balance 70 ml Height & Weight Height: '" Weight: lbs. oz. kg; 30.00 BMI Method: General Appearance: WD/WN, Anxious, Chronically ill, Mild Distress HEENT: PERRL/EOMI, Normal ENT Inspection, Pharynx Normal, Moist Mucous Membranes Neck: Full Range of Motion, Normal Inspection, Non Tender; No Supple, No Carotid Bruit, No JVD, No Limited Range of Motion, No Lymphadenopathy (L), No Lymphadenopathy (R), No Tender Lateral, No Tender Midline, No Thyromegaly, No Other Respiratory: Chest Non Tender, No Accessory Muscle Use, Accessory Muscle Use, Decreased Breath Sounds Cardiovascular: Regular Rate, Rhythm, No Edema, No Gallop, No JVD, No Murmur, Normal Peripheral Pulses Capillary Refill: Less Than 3 Seconds Peripheral Pulses: 2+ Radial Pulses (R) Gastrointestinal: No normal bowel sounds, No non tender, No soft, No no organomegaly, No no pulsatile mass, No abnormal bowel sounds, No distended, No guarding, No rebound, No tenderness, No hernia, No mass, No hepatomegaly, No spleenomegaly, No other Extremity: Normal Capillary Refill, Normal Inspection, Normal Range of Motion, Non Tender, No Calf Tenderness, No Pedal Edema; No Calf Tenderness, No Inflammation, No Pedal Edema, No Pelvis Stable, No Slow Capillary Refill, No Swelling, No Other Neurologic/Psychiatric: Alert, Oriented x3, No Motor/Sensory Deficits, Normal Mood/Affect; No gyn physician II-XII Norm as Tested, No Abnormal Cerebellar Tests, No Abnormal gyn physician II-XII, No Abnormal Gait, No Aphasia, No Depressed Affect, No Disoriented, No EOM Palsy, No Facial Droop, No Motor Weakness, No Sensory Deficit, No Other Skin: Normal Color, Warm/Dry; No Cool, No Cyanosis, No Damp, No Diaphoresis, No Ecchymosis, No Erythema, No Jaundice, No Mottled, No Pallor, No Petechia, No Rash, No Tattoos/Piercings, No Other Lymphatic: No Adenopathy; No Axilla Node Tender (L), No Axilla Node Tender (R), No Inguinal Node Tender (L), No Inguinal Node Tender (R), No Other Results Lab Laboratory Tests 09/26/21 14:08 09/26/21 18:54 09/27/21 07:00 09/28/21 06:24 Radiology TTE 09/28: Mildly reduced EF 45-50%. Normal wall thickness. No regional wall motion abnormalities Assessment/Plan Assessment/Plan 56 y/o M with PMHx significant for Bipolar disorder, HTN, GERD, who presented to ED 09/26 with c/o of SOB, fevers and general malaise now admitted with acute hypoxic respiratory failure in setting of COVID pneumonia. Pt currently on vapotherm 30/70 and O2 sats 94% however continues to have desaturations with movement. Covid therapies include Dexamethasone and tocalizumab. TTE with no wall motion abnormalities however with mildly reduced EF. Ferritin > 2000. -Cont antibiotics. Leukocytosis likely 2/2 steroids. -Wean oxygen as tolerated. Obtain CXR in AM -Cont supportive management as noted. Encouraged patient to trial prone positioning FLAVIO VIVEROS MD Sep 28, 2021 11:50
[2021-09-28 12:00] VITALS: BP 135/94
[2021-09-28 15:24] VITALS: BP 130/76
[2021-09-28] MEDS ORDERED: ARTIFICAL TEARS 0.4 ML UNIT DOSE (REFRESH PLUS) OU PRN (16:00)
[2021-09-28] MEDS: cefTRIAXone 2,000 MG in NS (IVPB) 50 ML IV SCH (17:26)
[2021-09-28 19:26] VITALS: BP 132/79
[2021-09-28] MEDS: ENOXAPARIN 40 MG/0.4 ML (LOVENOX) SYR SC SCH (22:13)
[2021-09-28] MEDS: MIRTAZAPINE 15 MG (REMERON) TAB PO SCH (22:14)
[2021-09-29] VITALS (30 sets, daily range): BP systolic 103–168; BP diastolic 76–117
[2021-09-29] MEDS: RT-ALBUTEROL HFA 8.5 GM INHALER IH SCH ×6 (02:25→22:15)
[2021-09-29] MEDS: morphine INJ 10 MG/ML 1ML (SYR OR VIAL) IVP PRN ×2 (03:56→05:50)
[2021-09-29 05:10] LABS: ABG BASE EXCESS -4.7 MMOL/L (-2.5-2.5); ABG OXYGEN SATURATION 100 % (94-100); ABG PCO2 33 MMHG (35-45); ABG PH 7.39 (7.37-7.43); ABG PO2 208 MMHG (79-93); ABG TCO2 20.5 MMOL/L (21.0-31.0)
[2021-09-29 05:11] LABS: ALLENS TEST YES-POS; INSPIRED O2 100%
[2021-09-29 05:12] LABS: PATIENT TEMP 36.7; VENTILATOR NO
[2021-09-29 06:35] LABS: BASOPHILS % (AUTO) 0 % (0-10); EOSINOPHILS % (AUTO) 0 % (0-10); HEMATOCRIT 41 % (40-54); LYMPHOCYTES # (AUTO) 1.4 10^3/uL (1.0-4.0); LYMPHOCYTES % (AUTO) 14 % (12-44); MEAN CORPUSCULAR HEMOGLOBIN 31 pg (25-34); MEAN CORPUSCULAR HGB CONC 34 g/dL (32-36); MEAN CORPUSCULAR VOLUME 93 fL (80-99); MONOCYTES # (AUTO) 0.5 10^3/uL (0.0-1.0); MONOCYTES % (AUTO) 5 % (0-12); NEUTROPHILS # (AUTO) 7.9 10^3/uL (1.8-7.8); NEUTROPHILS % (AUTO) 77 % (42-75); PLATELET COUNT 231 10^3/uL (130-400); WHITE BLOOD COUNT 10.2 10^3/uL (4.3-11.0)
[2021-09-29] MEDS: PANTOPRAZOLE 40 MG (PROTONIX) TAB PO SCH (06:39)
[2021-09-29 06:45] LABS: POTASSIUM 3.6 MMOL/L (3.6-5.0)
--- NOTE | 2021-09-29 06:46 | Diagnostic Imaging Report ---
INDICATION: Shortness of air. TECHNIQUE: Single view chest 5:35 AM. CORRELATION STUDY: 09/27/2021 FINDINGS: Scattered patchy bilateral pulmonary infiltrates are again demonstrated overall likely relatively stable. Mediastinal structures unchanged. IMPRESSION: 1. Continued extensive 5 lobe patchy pulmonary infiltrates consistent with multiple lobe pneumonia. This would include potential for COVID pneumonia. Faxed to [facility]/Infection control at 6:45 a.m. by cvb. Dictated by: Dictated on workstation # [id number]
[2021-09-29 06:47] LABS: CALCIUM 8.4 MG/DL (8.5-10.1)
[2021-09-29 06:48] LABS: TOTAL PROTEIN 5.6 GM/DL (6.4-8.2)
[2021-09-29 06:49] LABS: BILIRUBIN,TOTAL 0.7 MG/DL (0.1-1.0)
[2021-09-29 06:52] LABS: CREATININE SERUM 0.79 MG/DL (0.60-1.30)
[2021-09-29 06:54] LABS: MAGNESIUM 2.5 MG/DL (1.6-2.4)
[2021-09-29] MEDS: amLODIPine 5 MG (NORVASC) TAB PO SCH (09:25)
[2021-09-29] MEDS: AZITHROMYCIN 250 MG TAB (ZITHROMAX) PO SCH (09:25)
[2021-09-29] MEDS: LITHIUM CARB SR 450 MG (ESKALITH-CR) TAB PO SCH ×2 (09:25→21:11)
[2021-09-29] MEDS: LORATADINE (CLARITIN) 10 MG TAB PO SCH (09:25)
--- NOTE | 2021-09-29 09:58 | Progress Note - Hospitalist ---
Subjective HPI/CC On Admission Date Seen by Provider: Sep 29, 2021 Time Seen by Provider: 11:00 CC: Covid-19 acute hypoxic respiratory failure HPI: This ia 56yo mentally disabled WM who presented with Covid-19 with hypoxia and sepsis. elevated Lactic acid of 4 resolved with IV fluids. Actemra indicated due to progression and could be at risk for intubation. Remains on Vapotherm 40/100 and titrating down to 90. Subjective/Events-last exam Pt was transferred up from 433 Remains on Vapotherm 40 and 100 ABG 7.39/33/208 Overall very chronic debility will preclude a fast recovery Review of Systems General: Fatigue, Malaise Pulmonary: Dyspnea Focused Exam Lactate Level Time of Focused Exam: 15:42 Objective Exam Vital Signs Vital Signs Date Time Temp Pulse Resp B/P (MAP) Pulse Ox O2 Delivery O2 Flow Rate FiO2 09/30/21 04:00 95 NIV Bilevel 80 09/30/21 04:00 36.8 100.00 09/30/21 02:51 74 27 Capillary Refill : Less Than 3 Seconds General Appearance: Anxious, Chronically ill, Mild Distress Respiratory: No Accessory Muscle Use, No Respiratory Distress, Decreased Breath Sounds Cardiovascular: Regular Rate, Rhythm Neurologic/Psychiatric: Alert, Oriented x3, No Motor/Sensory Deficits, Normal Mood/Affect Results/Procedures Lab Laboratory Tests 09/29/21 06:24 Patient resulted labs reviewed. Assessment/Plan Assessment and Plan Assess & Plan/Chief Complaint Assessment: Acute hypoxic respiratory failure COVID-19 pneumonia Mental illness on lithium Hypertension Elevated lactic acid on admit status post fluids now resolved we will Hep-Lock to prevent volume overload Plan: Vapotherm Actemra High risk for intubation Hep-Lock IV fluid Home meds 09/28/21: Supportive care Vapotherm wean 09/29/2021: ICU transfer Supportive care Intubation risk Diagnosis/Problems Diagnosis/Problems (1) Acute respiratory failure due to severe acute respiratory syndrome coronavirus 2 (SARS-CoV-2) infection Status: Acute (2) Sepsis Status: Acute Qualifiers: Sepsis type: sepsis due to unspecified organism Sepsis acute organ dysfunction status: without acute organ dysfunction Qualified Codes: A41.9 - Sepsis, unspecified organism (3) Hypoxia Status: Acute (4) Dehydration Status: Acute (5) Renal insufficiency Status: Acute GAEB COLORADO DO Sep 29, 2021 09:58
--- NOTE | 2021-09-29 10:24 | Tele-ICU Progress Note ---
Subjective Date Seen by a Provider: Sep 29, 2021 Time Seen by a Provider: 08:05 Subjective/Events-last exam This virtual visit was conducted using real time audio/video. Thank you for asking us to see this patient for respiratory insufficiency due to Covid pna. Recent events: Transferred into iCU 2/2 increased O2 needs. Weaned from BiPAP to Vapotherm this AM. PE: VSS. Obese. Appears comfortable. O2 sat 95% on V.therm 40 LPM, 100%. HEENT: No obvious masses, adenopathy or JVD. Chest: clear to auscultation. Diminished. CV: RRR S1 S2 No murmur or added sounds. Abd: Non-tender. Bowel sounds Y. : Unremarkable. Neff Y. [employer]CH [employer]END[employer] OFFICER/psychiatric: Grossly intact. No obvious focal findings. Extremities: No edema. Capillary refill < 3 seconds. Skin: unremarkable. Results: Elevated Na 146, BG 204. Decreased Alb 3.0. B.36/33/208. CXR: B infilts.. Available chart/ vitals / labs / images reviewed. Video assessment done using teleICU camera, rest of exam as per RN. A/P: Respiratory insufficiency: Continue present management with Vapotherm. Cont. Albuterol, proning PRN. Monitor for increasing oxygenation needs and/or need for intubation. Critical Care: critically ill patient. Cont. Dex., Rocephin, Norvasc, AZT, Lovenox. Discussed with RN CARLY. Asked RN to reach out to eICU if any questions or concerns later. Time spent with patient/coordination of care with other health professionals (mins): Sepsis Event Evaluation Height, Weight, BMI Height: '" Weight: lbs. oz. kg; 30.00 BMI Method: Focused Exam Lactate Level 09/26/21 14:50: Lactic Acid Level 4.15*H 09/26/21 19:11: Lactic Acid Level 1.99 Time of Focused Exam: 15:42 Exam Exam Patient acknowledged, consented, and participated in this virtual visit which was conducted using real time audio/video Vital Signs Date Time Temp Pulse Resp B/P (MAP) Pulse Ox O2 Delivery O2 Flow Rate FiO2 09/29/21 09:40 Vapotherm 40.00 100.00 09/29/21 09:15 119/82 (96) 09/29/21 09:00 110/78 (88) 09/29/21 08:45 133/86 (101) 09/29/21 08:30 113/76 (89) 09/29/21 08:15 80 24 123/79 (95) 98 NIV Bilevel 80.00 09/29/21 08:00 36.9 09/29/21 08:00 87 25 132/83 (107) 99 NIV Bilevel 80.00 09/29/21 08:00 95 NIV Bilevel 80 09/29/21 07:45 127/84 (106) 09/29/21 07:30 86 20 133/83 (98) 98 NIV Bilevel 80.00 09/29/21 07:23 83 29 98 100.00 09/29/21 07:15 NIV Bilevel 80.00 09/29/21 07:00 80 19 119/84 (94) 98 NIV Bilevel 80.00 09/29/21 07:00 84 09/29/21 06:00 85 21 116/84 (95) 98 NIV Bilevel 100.00 09/29/21 05:45 90 28 136/98 (105) 100 NIV Bilevel 100.00 09/29/21 05:42 36.2 NIV Bilevel 09/29/21 05:42 93 NIV Bilevel 100 09/29/21 05:30 92 23 143/112 (120) 98 NIV Bilevel 100.00 09/29/21 05:15 97 163/111 (123) 100 NIV Bilevel 100.00 09/29/21 05:00 82 28 135/90 (106) 100 NIV Bilevel 100.00 09/29/21 04:54 88 15 139/112 (125) 100 NIV Bilevel 100.00 09/29/21 04:48 80 21 100 100.00 09/29/21 04:00 36.3 95 38 129/80 (96) 96 Vapotherm 40.00 100.00 09/29/21 02:25 95 Vapotherm 25.00 60 09/29/21 01:00 81 09/29/21 00:45 37.0 80 20 115/77 (90) 96 High Flow N/C 30.00 70.00 09/28/21 21:45 91 Vapotherm 30.00 70 09/28/21 20:20 Vapotherm 30.00 70 09/28/21 19:26 35.9 92 22 132/79 (96) 93 Vapotherm 30.00 70.00 09/28/21 19:03 92 09/28/21 18:57 94 Vapotherm 30.00 70 09/28/21 15:24 35.9 85 24 130/76 (94) 95 Vapotherm 30.00 70.00 09/28/21 14:32 90 30.00 70 09/28/21 12:45 85 09/28/21 12:00 36.2 83 26 135/94 (108) 92 Vapotherm 30.00 70.00 09/28/21 10:20 94 Vapotherm 30.00 70 I & O 09/29/21 07:00 Intake Total 1200 ml Output Total 900 ml Balance 300 ml Height & Weight Height: '" Weight: lbs. oz. kg; 30.00 BMI Method: General Appearance: No Apparent Distress (See free text), WD/WN, Chronically ill HEENT: PERRL/EOMI, Normal ENT Inspection, Pharynx Normal, Moist Mucous Membranes Neck: Full Range of Motion, Normal Inspection, Non Tender; No Supple, No Carotid Bruit, No JVD, No Limited Range of Motion, No Lymphadenopathy (L), No Lymphadenopathy (R), No Tender Lateral, No Tender Midline, No Thyromegaly, No Other Respiratory: No Accessory Muscle Use, No Respiratory Distress, Decreased Breath Sounds Cardiovascular: Regular Rate, Rhythm Capillary Refill: Less Than 3 Seconds Peripheral Pulses: 2+ Radial Pulses (R) Gastrointestinal: No normal bowel sounds, No non tender, No soft, No no organomegaly, No no pulsatile mass, No abnormal bowel sounds, No distended, No guarding, No rebound, No tenderness, No hernia, No mass, No hepatomegaly, No spleenomegaly, No other Extremity: Normal Capillary Refill, Normal Inspection, Normal Range of Motion, Non Tender, No Calf Tenderness, No Pedal Edema; No Calf Tenderness, No Inflammation, No Pedal Edema, No Pelvis Stable, No Slow Capillary Refill, No Swelling, No Other Neurologic/Psychiatric: Alert, Oriented x3, No Motor/Sensory Deficits, Normal Mood/Affect Skin: Normal Color, Warm/Dry; No Cool, No Cyanosis, No Damp, No Diaphoresis, No Ecchymosis, No Erythema, No Jaundice, No Mottled, No Pallor, No Petechia, No Rash, No Tattoos/Piercings, No Other Lymphatic: No Adenopathy; No Axilla Node Tender (L), No Axilla Node Tender (R), No Inguinal Node Tender (L), No Inguinal Node Tender (R), No Other Results Lab Laboratory Tests 09/28/21 06:24 09/29/21 06:24 Assessment/Plan Assessment/Plan See free text. Critical Care: Critically Ill Patient ZAIN ROCK MD Sep 29, 2021 10:24
[2021-09-29] MEDS: cefTRIAXone 2,000 MG in NS (IVPB) 50 ML IV SCH (17:55)
[2021-09-29] MEDS: ENOXAPARIN 40 MG/0.4 ML (LOVENOX) SYR SC SCH (21:10)
[2021-09-29] MEDS: MIRTAZAPINE 15 MG (REMERON) TAB PO SCH (21:10)
[2021-09-30] VITALS (23 sets, daily range): BP systolic 116–157; BP diastolic 69–110
[2021-09-30] MEDS: RT-ALBUTEROL HFA 8.5 GM INHALER IH SCH ×6 (02:50→22:21)
[2021-09-30] MEDS: morphine INJ 10 MG/ML 1ML (SYR OR VIAL) IVP PRN (04:32)
[2021-09-30 05:00] LABS: BASOPHILS % (AUTO) 0 % (0-10); EOSINOPHILS % (AUTO) 0 % (0-10); HEMATOCRIT 47 % (40-54); HEMOGLOBIN 15.2 g/dL (13.3-17.7); LYMPHOCYTES # (AUTO) 1.9 10^3/uL (1.0-4.0); LYMPHOCYTES % (AUTO) 17 % (12-44); MEAN CORPUSCULAR HEMOGLOBIN 31 pg (25-34); MEAN CORPUSCULAR HGB CONC 33 g/dL (32-36); MEAN CORPUSCULAR VOLUME 95 fL (80-99); MONOCYTES # (AUTO) 0.6 10^3/uL (0.0-1.0); MONOCYTES % (AUTO) 6 % (0-12); NEUTROPHILS # (AUTO) 8.1 10^3/uL (1.8-7.8); NEUTROPHILS % (AUTO) 73 % (42-75); PLATELET COUNT 164 10^3/uL (130-400); WHITE BLOOD COUNT 11.2 10^3/uL (4.3-11.0)
[2021-09-30 05:11] LABS: ALBUMIN 3.2 GM/DL (3.2-4.5); POTASSIUM 4.6 MMOL/L (3.6-5.0)
[2021-09-30 05:12] LABS: CALCIUM 8.8 MG/DL (8.5-10.1)
[2021-09-30 05:15] LABS: BILIRUBIN,TOTAL 0.7 MG/DL (0.1-1.0)
[2021-09-30 05:17] LABS: CREATININE SERUM 1.07 MG/DL (0.60-1.30); PHOSPHORUS 3.4 MG/DL (2.3-4.7)
[2021-09-30 05:20] LABS: MAGNESIUM 2.7 MG/DL (1.6-2.4)
[2021-09-30] MEDS: MAGNESIUM 1 GM/100 ML IVPB 100 ML IV SCH (05:23)
[2021-09-30] MEDS: POTASSIUM CL 10MEQ/50ML IVPB 50 ML IV SCH (05:23)
[2021-09-30] MEDS: KCL 20 MEQ TAB (K-DUR) PO SCH (05:23)
[2021-09-30] MEDS: PANTOPRAZOLE 40 MG (PROTONIX) TAB PO SCH (06:00)
[2021-09-30] MEDS: AZITHROMYCIN 250 MG TAB (ZITHROMAX) PO SCH (08:53)
[2021-09-30] MEDS: LORATADINE (CLARITIN) 10 MG TAB PO SCH (08:53)
[2021-09-30] MEDS: LITHIUM CARB SR 450 MG (ESKALITH-CR) TAB PO SCH ×2 (08:53→21:31)
[2021-09-30] MEDS: amLODIPine 5 MG (NORVASC) TAB PO SCH (08:53)
--- NOTE | 2021-09-30 11:55 | Progress Note - Hospitalist ---
Subjective HPI/CC On Admission Date Seen by Provider: Sep 30, 2021 Time Seen by Provider: 12:00 CC: Covid-19 acute hypoxic respiratory failure HPI: This ia 56yo mentally disabled WM who presented with Covid-19 with hypoxia and sepsis. elevated Lactic acid of 4 resolved with IV fluids. Actemra indicated due to progression and could be at risk for intubation. Remains on Vapotherm 40/100 and titrating down to 90. Subjective/Events-last exam Pt doing a lot better but still appears to be fatigued BiPAP dependent May very well tire out and ultimately end up being intubated Review of Systems General: Fatigue, Malaise Pulmonary: Dyspnea Focused Exam Time of Focused Exam: 15:42 Objective Exam Vital Signs Vital Signs Date Time Temp Pulse Resp B/P (MAP) Pulse Ox O2 Delivery O2 Flow Rate FiO2 10/01/21 02:34 93 Vapotherm 40.00 100 10/01/21 01:00 81 26 137/93 (108) 10/01/21 00:00 36.2 Capillary Refill : Less Than 3 Seconds General Appearance: WD/WN, Anxious, Chronically ill, Mild Distress, Other (Fatigued) Respiratory: No Accessory Muscle Use, No Respiratory Distress, Decreased Breath Sounds Cardiovascular: Regular Rate, Rhythm Neurologic/Psychiatric: Alert, Oriented x3 Results/Procedures Lab Patient resulted labs reviewed. Assessment/Plan Assessment and Plan Assess & Plan/Chief Complaint Assessment: Acute hypoxic respiratory failure COVID-19 pneumonia Mental illness on lithium Hypertension Elevated lactic acid on admit status post fluids now resolved we will Hep-Lock t o prevent volume overload Plan: Vapotherm Actemra High risk for intubation Hep-Lock IV fluid Home meds 09/28/21: Supportive care Vapotherm wean 09/29/2021: ICU transfer Supportive care Intubation risk 09/30/2021: BiPAP dependence Critical Care Critically Ill Patient Diagnosis/Problems Diagnosis/Problems (1) Acute respiratory failure due to severe acute respiratory syndrome coronavirus 2 (SARS-CoV-2) infection Status: Acute (2) Sepsis Status: Acute Qualifiers: Sepsis type: sepsis due to unspecified organism Sepsis acute organ dysfunction status: without acute organ dysfunction Qualified Codes: A41.9 - Sepsis, unspecified organism (3) Hypoxia Status: Acute (4) Dehydration Status: Acute (5) Renal insufficiency Status: Acute GABE COLORADO DO Sep 30, 2021 11:55
--- NOTE | 2021-09-30 13:50 | Tele-ICU Progress Note ---
Subjective Date Seen by a Provider: Sep 30, 2021 Time Seen by a Provider: 11:25 Subjective/Events-last exam This gentleman is 56-year-old male with past medical history of hypertension, GERD, bipolar disorder presented to the emergency room with a complaint of shortness of breath fever general malaise and found to have a Covid positive pneumonia. Initially he is a lactate and a creatinine levels are elevated. Chest x-ray showed bilateral infiltrate. Initially admitted to medical floor and subsequently transferred to the intensive care unit because increasing oxygen demands. Currently he is on a BiPAP of 15/5 with 60% FiO2. He is resting comfortably. Without the CPAP he is not able to tolerate. Review of Systems ROS PER ATTENDING. Sepsis Event Evaluation Height, Weight, BMI Height: '" Weight: lbs. oz. kg; 30.00 BMI Method: Focused Exam Time of Focused Exam: 15:42 Exam Exam Patient acknowledged, consented, and participated in this virtual visit which was conducted using real time audio/video Vital Signs Date Time Temp Pulse Resp B/P (MAP) Pulse Ox O2 Delivery O2 Flow Rate FiO2 09/30/21 12:10 36.8 09/30/21 12:00 83 21 143/103 (116) 97 NIV Bilevel 100.00 09/30/21 12:00 94 NIV Bilevel 60 09/30/21 11:00 79 20 131/82 (98) 92 NIV Bilevel 100.00 09/30/21 10:08 79 22 95 60.00 09/30/21 10:00 82 21 118/85 (96) 94 NIV Bilevel 100.00 09/30/21 09:00 91 26 126/102 (110) 63 NIV Bilevel 100.00 09/30/21 08:00 80 29 157/110 (126) 96 NIV Bilevel 100.00 09/30/21 08:00 94 NIV Bilevel 60 09/30/21 08:00 36.3 09/30/21 07:00 74 23 152/99 (116) 95 NIV Bilevel 100.00 09/30/21 07:00 76 09/30/21 07:00 NIV Bilevel 60.00 09/30/21 06:48 75 27 95 60.00 09/30/21 06:00 72 23 116/88 (97) 93 NIV Bilevel 100.00 09/30/21 06:00 70 18 135/98 (110) 95 NIV Bilevel 100.00 09/30/21 05:00 73 18 126/97 (107) 95 NIV Bilevel 100.00 09/30/21 04:00 95 NIV Bilevel 80 09/30/21 04:00 65 23 95 NIV Bilevel 100.00 09/30/21 04:00 36.8 NIV Bilevel 100.00 09/30/21 03:00 67 24 137/94 (108) 95 NIV Bilevel 100.00 09/30/21 02:51 74 27 95 60.00 09/30/21 02:00 68 21 125/95 (105) 92 NIV Bilevel 100.00 09/30/21 01:00 68 21 132/95 (107) 96 NIV Bilevel 100.00 09/30/21 01:00 71 09/30/21 00:00 70 22 121/95 (104) 94 NIV Bilevel 100.00 09/30/21 00:00 36.2 NIV Bilevel 100.00 09/29/21 23:59 95 NIV Bilevel 80 09/29/21 23:00 72 23 116/88 (97) 93 Vapotherm 40.00 100.00 09/29/21 22:15 73 25 95 60.00 09/29/21 22:00 82 32 168/117 (134) 95 Vapotherm 40.00 100.00 09/29/21 21:00 78 22 161/102 (121) 98 Vapotherm 40.00 100.00 09/29/21 20:00 95 NIV Bilevel 80 09/29/21 20:00 71 19 129/89 (102) 95 Vapotherm 40.00 100.00 09/29/21 19:54 36.4 09/29/21 19:38 75 23 95 60.00 09/29/21 19:00 74 09/29/21 19:00 75 20 117/84 (95) 96 Vapotherm 40.00 100.00 09/29/21 18:02 80 25 131/91 (111) 95 Vapotherm 40.00 100.00 09/29/21 18:00 79 25 88 Vapotherm 40.00 100.00 09/29/21 17:30 75 21 95 Vapotherm 40.00 100.00 09/29/21 17:15 81 23 93 Vapotherm 40.00 100.00 09/29/21 17:00 76 19 94 Vapotherm 40.00 100.00 09/29/21 16:45 80 22 94 Vapotherm 40.00 100.00 09/29/21 16:30 79 23 93 Vapotherm 40.00 100.00 09/29/21 16:15 83 21 93 Vapotherm 40.00 100.00 09/29/21 16:11 36.6 09/29/21 16:00 95 NIV Bilevel 80 09/29/21 16:00 78 23 93 Vapotherm 40.00 100.00 09/29/21 15:15 85 23 97 Vapotherm 40.00 100.00 09/29/21 14:54 86 28 95 80.00 09/29/21 14:45 83 26 93 Vapotherm 40.00 100.00 09/29/21 14:30 84 26 92 Vapotherm 40.00 100.00 09/29/21 14:15 85 25 90 Vapotherm 40.00 100.00 09/29/21 14:15 85 25 90 09/29/21 14:00 98 24 103/89 (94) 80 Vapotherm 40.00 100.00 I & O 09/30/21 06:59 Intake Total 980 ml Output Total 1450 ml Balance -470 ml Height & Weight Height: '" Weight: lbs. oz. kg; 30.00 BMI Method: General Appearance: Anxious, Chronically ill, Mild Distress HEENT: PERRL/EOMI, Normal ENT Inspection, Pharynx Normal, Moist Mucous Membranes Neck: Full Range of Motion, Normal Inspection, Non Tender; No Supple, No Carotid Bruit, No JVD, No Limited Range of Motion, No Lymphadenopathy (L), No Lymphadenopathy (R), No Tender Lateral, No Tender Midline, No Thyromegaly, No Other Respiratory: No Accessory Muscle Use, No Respiratory Distress, Decreased Breath Sounds Cardiovascular: Regular Rate, Rhythm Capillary Refill: Less Than 3 Seconds Peripheral Pulses: 2+ Radial Pulses (R) Gastrointestinal: No normal bowel sounds, No non tender, No soft, No no organomegaly, No no pulsatile mass, No abnormal bowel sounds, No distended, No guarding, No rebound, No tenderness, No hernia, No mass, No hepatomegaly, No spleenomegaly, No other Extremity: Normal Capillary Refill, Normal Inspection, Normal Range of Motion, Non Tender, No Calf Tenderness, No Pedal Edema; No Calf Tenderness, No Inflammation, No Pedal Edema, No Pelvis Stable, No Slow Capillary Refill, No Swelling, No Other Neurologic/Psychiatric: Alert, Oriented x3, No Motor/Sensory Deficits, Normal Mood/Affect Skin: Normal Color, Warm/Dry; No Cool, No Cyanosis, No Damp, No Diaphoresis, No Ecchymosis, No Erythema, No Jaundice, No Mottled, No Pallor, No Petechia, No Rash, No Tattoos/Piercings, No Other Lymphatic: No Adenopathy; No Axilla Node Tender (L), No Axilla Node Tender (R), No Inguinal Node Tender (L), No Inguinal Node Tender (R), No Other Other comments PE PER ATTENDING. Results Lab Laboratory Tests 09/29/21 06:24 09/30/21 04:25 Meds reviewed Radiology reviewed Assessment/Plan Assessment/Plan 1. Acute Covid19 pneumonia 2. Acute hypoxic respiratory failure secondary to Covid pneumonia. 3. High risk for DVT and a PE 4. Elevated liver enzymes probably due to Covid pneumonia. Recommendations 1. Continue BiPAP ventilation and wean FiO2 as tolerated 2. IV dexamethasone 3. IV antibiotics per primary care team 4. Sliding scale coverage per hyperglycemia 5. DVT prophylaxis and ulcer prophylaxis. 6. Reviewed with the [facility] [employer] and continue to monitor his progress. Critical Care: Critically Ill Patient Time spent with patient (mins): 25 VIK LUQUE MD Sep 30, 2021 13:50
[2021-09-30] MEDS: cefTRIAXone 2,000 MG in NS (IVPB) 50 ML IV SCH (18:08)
[2021-09-30] MEDS: MIRTAZAPINE 15 MG (REMERON) TAB PO SCH (21:32)
[2021-09-30] MEDS: ENOXAPARIN 40 MG/0.4 ML (LOVENOX) SYR SC SCH (21:32)
[2021-10-01] VITALS (22 sets, daily range): BP systolic 107–147; BP diastolic 61–115
[2021-10-01] MEDS: morphine INJ 10 MG/ML 1ML (SYR OR VIAL) IVP PRN (02:05)
[2021-10-01] MEDS: RT-ALBUTEROL HFA 8.5 GM INHALER IH SCH ×6 (02:34→22:06)
[2021-10-01] MEDS: POTASSIUM CL 10MEQ/50ML IVPB 50 ML IV SCH (06:07)
[2021-10-01] MEDS: MAGNESIUM 1 GM/100 ML IVPB 100 ML IV SCH (06:07)
[2021-10-01] MEDS: PANTOPRAZOLE 40 MG (PROTONIX) TAB PO SCH (06:07)
[2021-10-01] MEDS: KCL 20 MEQ TAB (K-DUR) PO SCH (06:08)
[2021-10-01 06:12] LABS: EOSINOPHILS # (AUTO) 0.1 10^3/uL (0.0-0.3); EOSINOPHILS % (AUTO) 1 % (0-10); HEMOGLOBIN 14.9 g/dL (13.3-17.7); MEAN CORPUSCULAR VOLUME 97 fL (80-99); MEAN PLATELET VOLUME 11.1 fL (9.0-12.2)
[2021-10-01 06:14] LABS: BASOPHILS # (AUTO) 0.1 10^3/uL (0.0-0.1); BASOPHILS % (AUTO) 1 % (0-10); HEMATOCRIT 43 % (40-54); LYMPHOCYTES # (AUTO) 2.4 10^3/uL (1.0-4.0); LYMPHOCYTES % (AUTO) 19 % (12-44); MEAN CORPUSCULAR HEMOGLOBIN 34 pg (25-34); MEAN CORPUSCULAR HGB CONC 35 g/dL (32-36); MONOCYTES # (AUTO) 0.8 10^3/uL (0.0-1.0); MONOCYTES % (AUTO) 6 % (0-12); NEUTROPHILS # (AUTO) 8.8 10^3/uL (1.8-7.8); NEUTROPHILS % (AUTO) 69 % (42-75); PLATELET COUNT 153 10^3/uL (130-400); WHITE BLOOD COUNT 12.8 10^3/uL (4.3-11.0)
[2021-10-01 06:25] LABS: ALBUMIN 3.2 GM/DL (3.2-4.5); POTASSIUM 4.4 MMOL/L (3.6-5.0)
[2021-10-01 06:26] LABS: CALCIUM 8.9 MG/DL (8.5-10.1)
[2021-10-01 06:27] LABS: TOTAL PROTEIN 5.7 GM/DL (6.4-8.2)
[2021-10-01 06:29] LABS: BILIRUBIN,TOTAL 0.6 MG/DL (0.1-1.0)
[2021-10-01 06:31] LABS: CREATININE SERUM 1.1 MG/DL (0.60-1.30); PHOSPHORUS 4.5 MG/DL (2.3-4.7)
[2021-10-01 06:34] LABS: MAGNESIUM 2.4 MG/DL (1.6-2.4)
[2021-10-01] MEDS: LORATADINE (CLARITIN) 10 MG TAB PO SCH (09:34)
[2021-10-01] MEDS: amLODIPine 5 MG (NORVASC) TAB PO SCH (09:34)
[2021-10-01] MEDS: LITHIUM CARB SR 450 MG (ESKALITH-CR) TAB PO SCH ×2 (09:34→20:42)
--- NOTE | 2021-10-01 10:01 | Tele-ICU Progress Note ---
Subjective Date Seen by a Provider: Oct 01, 2021 Time Seen by a Provider: 09:58 Subjective/Events-last exam Pt is currently on vapotherm 40/100 and has been unable to tolerate Bipap. Per nursing continues to have episodes of desaturation with exertion however otherwise is O2 sats >98%. Sepsis Event Evaluation Sepsis Stage: Severe Sepsis Height, Weight, BMI Height: '" Weight: lbs. oz. kg; 30.00 BMI Method: Focused Exam Time of Focused Exam: 15:42 Exam Exam Patient acknowledged, consented, and participated in this virtual visit which was conducted using real time audio/video Vital Signs Date Time Temp Pulse Resp B/P (MAP) Pulse Ox O2 Delivery O2 Flow Rate FiO2 10/01/21 09:30 94 18 90 Vapotherm 40.00 100.00 10/01/21 09:15 101 23 87 Vapotherm 40.00 100.00 10/01/21 09:00 128/93 (103) 10/01/21 08:45 86 16 100 Vapotherm 40.00 100.00 10/01/21 08:30 87 15 100 Vapotherm 40.00 100.00 10/01/21 08:15 92 14 93 Vapotherm 40.00 100.00 10/01/21 08:00 37.0 10/01/21 08:00 105 20 40.00 100.00 10/01/21 07:45 90 19 97 Vapotherm 40.00 100.00 10/01/21 07:30 103 28 86 Vapotherm 40.00 100.00 10/01/21 07:17 97 Vapotherm 40.00 100 10/01/21 07:15 86 23 97 Vapotherm 40.00 100.00 10/01/21 07:00 85 10/01/21 07:00 81 15 128/84 (100) 97 Vapotherm 40.00 100.00 10/01/21 06:00 82 15 123/81 (95) 97 Vapotherm 40.00 100.00 10/01/21 05:00 85 13 123/81 (95) 91 Vapotherm 40.00 100.00 10/01/21 04:00 98 Vapotherm 40.00 100 10/01/21 04:00 36.8 Vapotherm 40.00 100.00 10/01/21 04:00 84 15 130/80 (97) 95 Vapotherm 40.00 100.00 10/01/21 03:00 84 16 122/80 (94) 95 Vapotherm 40.00 100.00 10/01/21 02:34 93 Vapotherm 40.00 100 10/01/21 02:00 91 17 147/102 (117) 91 Vapotherm 40.00 100.00 10/01/21 01:00 81 26 137/93 (108) 95 Vapotherm 40.00 100.00 10/01/21 01:00 81 10/01/21 00:00 81 23 122/90 (101) 96 Vapotherm 40.00 100.00 10/01/21 00:00 36.2 Vapotherm 40.00 100.00 09/30/21 23:59 98 Vapotherm 40.00 100 09/30/21 23:00 84 24 132/87 (102) 98 Vapotherm 40.00 100.00 09/30/21 22:21 98 Vapotherm 40.00 100 09/30/21 22:00 89 27 135/101 (112) 90 Vapotherm 40.00 100.00 09/30/21 21:00 91 22 149/99 (116) 91 Vapotherm 40.00 100.00 09/30/21 20:00 36.8 Vapotherm 40.00 100.00 09/30/21 20:00 98 Vapotherm 40.00 100 09/30/21 20:00 89 26 138/94 (109) 96 Vapotherm 40.00 100.00 09/30/21 19:00 96 09/30/21 19:00 96 14 143/102 (116) 93 Vapotherm 40.00 100.00 09/30/21 18:45 88 Vapotherm 40.00 100 09/30/21 18:00 95 28 126/69 (88) 72 Vapotherm 40.00 100.00 09/30/21 17:00 93 19 151/101 (118) 85 Vapotherm 40.00 100.00 09/30/21 16:30 36.4 09/30/21 16:00 94 Vapotherm 40.00 100 09/30/21 16:00 82 16 134/96 (109) 96 Vapotherm 40.00 100.00 12/2/21 15:00 89 17 142/107 (127) 96 Vapotherm 40.00 100.00 09/30/21 14:41 Vapotherm 40.00 100.00 09/30/21 14:41 93 Vapotherm 40.00 100 09/30/21 14:00 89 20 152/102 (115) 94 NIV Bilevel 100.00 09/30/21 13:00 95 09/30/21 13:00 86 15 152/99 (113) 95 NIV Bilevel 100.00 09/30/21 12:10 36.8 09/30/21 12:00 83 21 143/103 (116) 97 NIV Bilevel 100.00 09/30/21 12:00 94 NIV Bilevel 60 09/30/21 11:00 79 20 131/82 (98) 92 NIV Bilevel 100.00 09/30/21 10:08 79 22 95 60.00 09/30/21 10:00 82 21 118/85 (96) 94 NIV Bilevel 100.00 I & O 10/01/21 07:00 Intake Total 840 ml Output Total 1650 ml Balance -810 ml Height & Weight Height: '" Weight: lbs. oz. kg; 30.00 BMI Method: General Appearance: WD/WN, Anxious, Chronically ill, Mild Distress, Other (Fatigued) HEENT: PERRL/EOMI, Normal ENT Inspection, Pharynx Normal, Moist Mucous Membranes Neck: Full Range of Motion, Normal Inspection, Non Tender Respiratory: No Chest Non Tender, No Lungs Clear, No Normal Breath Sounds; No Accessory Muscle Use, No Respiratory Distress; No Accessory Muscle Use, No Crackles; Decreased Breath Sounds; No Expiration, No Inspiration, No Pleural Rub, No Rales, No Respiratory Distress, No Rhonci, No Stridor, No Wheezing, No Other Cardiovascular: Regular Rate, Rhythm; No No Edema, No No Gallop, No No JVD, No No Murmur, No Normal Peripheral Pulses, No Bradycardia, No Diastolic Murmur, No Systolic Murmur, No Extra Beats, No Friction Rub, No Gallop/S3, No Gallop/S4, No Irregularly Irregular, No JVD, No Tachycardia, No Other Capillary Refill: Less Than 3 Seconds Peripheral Pulses: 2+ Radial Pulses (R) Extremity: Normal Capillary Refill, Normal Inspection, Normal Range of Motion, Non Tender, No Calf Tenderness, No Pedal Edema Neurologic/Psychiatric: Alert, Oriented x3; No No Motor/Sensory Deficits, No No rmal Mood/Affect, No artificial inseminator II-XII Norm as Tested, No Abnormal Cerebellar Tests, No Abnormal artificial inseminator II-XII, No Abnormal Gait, No Aphasia, No Depressed Affect, No Disoriented, No EOM Palsy, No Facial Droop, No Motor Weakness, No Sensory Deficit, No Other Skin: Normal Color, Warm/Dry Lymphatic: No Adenopathy Results Lab Laboratory Tests 09/30/21 04:25 10/01/21 04:48 Assessment/Plan Assessment/Plan 56 y/o M with PMHx significant for Bipolar disorder, HTN, GERD, who presented to ED 09/26 with c/o of SOB, fevers and general malaise admitted with acute hypoxic respiratory failure in setting of COVID pneumonia now transferred to ICU for worsening hypoxia. Pt currently on vapotherm 40/100 and O2 sats 98% without exertion however continues to have desaturations with movement. Unable to tolerate BiPAP due to claustrophobia. Covid therapies include Dexamethasone and tocalizumab. -Cont antibiotics. Leukocytosis likely 2/2 steroids. -Wean O2 as tolerated. Obtain CXR to assess. -Cont supportive management as noted. Encouraged patient to trial prone positioning -Will obtain ABG and if worsening P/F ratio will need to trial BiPAP. -Low threshold for intubation -Will start SSI for hyperglycemia (insulin). -DVT/ulcer ppx FLAVIO VIVEROS MD Oct 01, 2021 10:01
--- NOTE | 2021-10-01 11:07 | Diagnostic Imaging Report ---
INDICATION: Shortness of air. Follow-up infiltrates. EXAMINATION: Chest, 10/01/2021. COMPARISON: 09/29/2021. FINDINGS: Persistent diffuse bilateral scattered infiltrates noted throughout the lungs, similar to previous imaging. Heart is stable. Pulmonary vasculature is congested. There is no pneumothorax. There are no effusions. IMPRESSION: 1. Diffuse bilateral infiltrates suspicious for process such as COVID. Dictated by: Dictated on workstation # [id number]
--- NOTE | 2021-10-01 11:24 | Progress Note - Hospitalist ---
Subjective HPI/CC On Admission Date Seen by Provider: Oct 01, 2021 Time Seen by Provider: 11:30 CC: Covid-19 acute hypoxic respiratory failure HPI: This ia 56yo mentally disabled WM who presented with Covid-19 with hypoxia and sepsis. elevated Lactic acid of 4 resolved with IV fluids. Actemra indicated due to progression and could be at risk for intubation. Remains on Vapotherm 40/100 and titrating down to 90. Subjective/Events-last exam Pt doing a little better Needs to be on BiPAP so will try that again Maxed on Vapotherm Seems to be doing a little bit better Less fatigued Review of Systems General: Fatigue Pulmonary: Dyspnea Focused Exam Time of Focused Exam: 15:42 Objective Exam Vital Signs Vital Signs Date Time Temp Pulse Resp B/P (MAP) Pulse Ox O2 Delivery O2 Flow Rate FiO2 10/02/21 06:00 56 19 128/89 (102) 94 NIV Bilevel 45.00 10/02/21 04:00 36.8 10/01/21 11:25 100 Capillary Refill : Less Than 3 Seconds General Appearance: No Apparent Distress, WD/WN, Chronically ill Respiratory: No Accessory Muscle Use, No Respiratory Distress, Decreased Breath Sounds Cardiovascular: Regular Rate, Rhythm Neurologic/Psychiatric: Alert, Oriented x3, No Motor/Sensory Deficits, Normal Mood/Affect Results/Procedures Lab Laboratory Tests 10/02/21 04:57 Patient resulted labs reviewed. Assessment/Plan Assessment and Plan Assess & Plan/Chief Complaint Assessment: Acute hypoxic respiratory failure COVID-19 pneumonia Mental illness on lithium Hypertension Elevated lactic acid on admit status post fluids now resolved we will Hep-Lock to prevent volume overload Plan: Vapotherm Actemra High risk for intubation Hep-Lock IV fluid Home meds 09/28/21: Supportive care Vapotherm wean 09/29/2021: ICU transfer Supportive care Intubation risk 09/30/2021: BiPAP dependence 10/01/2021: Still high risk for intubation Keep in ICU Critical Care Critically Ill Patient Diagnosis/Problems Diagnosis/Problems (1) Acute respiratory failure due to severe acute respiratory syndrome coronavirus 2 (SARS-CoV-2) infection Status: Acute (2) Sepsis Status: Acute Qualifiers: Sepsis type: sepsis due to unspecified organism Sepsis acute organ dysfunction status: without acute organ dysfunction Qualified Codes: A41.9 - Sepsis, unspecified organism (3) Hypoxia Status: Acute (4) Dehydration Status: Acute (5) Renal insufficiency Status: Acute GABE COLORADO DO Oct 01, 2021 11:24
[2021-10-01 11:25] LABS: ABG BASE EXCESS -2.4 MMOL/L (-2.5-2.5); ABG OXYGEN SATURATION 94 % (94-100); ABG PCO2 36 MMHG (35-45); ABG PO2 68 MMHG (79-93)
[2021-10-01 11:26] LABS: ALLENS TEST YES-POS; INSPIRED O2 100%; VENTILATOR NO
[2021-10-01] MEDS ORDERED: LORazepam INJ 2 MG/ML (ATIVAN) VIAL IVP ONE (14:15)
[2021-10-01] MEDS ORDERED: DexMEDEtomidine 250 ML DRIP 250 ML IV ONE (14:22)
[2021-10-01] MEDS ORDERED: LORazepam INJ 2 MG/ML (ATIVAN) VIAL ONE (14:22)
[2021-10-01] MEDS: DexMEDEtomidine 250 ML DRIP 250 ML IV SCH (14:34)
[2021-10-01] MEDS ORDERED: inSUlin ASPART (NovoLOG) 1 UNIT/0.01 ML (CHARGE PER UNIT) SC SCH (15:00)
[2021-10-01] MEDS: cefTRIAXone 2,000 MG in NS (IVPB) 50 ML IV SCH (19:12)
[2021-10-01] MEDS: inSUlin ASPART (NovoLOG) 1 UNIT/0.01 ML (CHARGE PER UNIT) SC SCH ×2 (19:12→23:33)
[2021-10-01] MEDS: MIRTAZAPINE 15 MG (REMERON) TAB PO SCH (20:42)
[2021-10-01] MEDS: ENOXAPARIN 40 MG/0.4 ML (LOVENOX) SYR SC SCH (20:42)
[2021-10-02] VITALS (25 sets, daily range): BP systolic 103–153; BP diastolic 70–696
[2021-10-02] MEDS: RT-ALBUTEROL HFA 8.5 GM INHALER IH SCH ×6 (02:10→21:29)
[2021-10-02 05:57] LABS: BASOPHILS # (AUTO) 0.1 10^3/uL (0.0-0.1); BASOPHILS % (AUTO) 1 % (0-10); EOSINOPHILS # (AUTO) 0.2 10^3/uL (0.0-0.3); EOSINOPHILS % (AUTO) 1 % (0-10); HEMATOCRIT 47 % (40-54); HEMOGLOBIN 15.5 g/dL (13.3-17.7); LYMPHOCYTES # (AUTO) 2.5 10^3/uL (1.0-4.0); LYMPHOCYTES % (AUTO) 16 % (12-44); MEAN CORPUSCULAR HEMOGLOBIN 31 pg (25-34); MEAN CORPUSCULAR HGB CONC 33 g/dL (32-36); MEAN CORPUSCULAR VOLUME 94 fL (80-99); MEAN PLATELET VOLUME 11.7 fL (9.0-12.2); MONOCYTES # (AUTO) 0.8 10^3/uL (0.0-1.0); MONOCYTES % (AUTO) 5 % (0-12); NEUTROPHILS # (AUTO) 10.8 10^3/uL (1.8-7.8); NEUTROPHILS % (AUTO) 71 % (42-75); PLATELET COUNT 147 10^3/uL (130-400); WHITE BLOOD COUNT 15.1 10^3/uL (4.3-11.0)
[2021-10-02] MEDS: PANTOPRAZOLE 40 MG (PROTONIX) TAB PO SCH (06:02)
[2021-10-02] MEDS: inSUlin ASPART (NovoLOG) 1 UNIT/0.01 ML (CHARGE PER UNIT) SC SCH ×4 (06:02→23:38)
[2021-10-02 06:17] LABS: ALBUMIN 3.3 GM/DL (3.2-4.5); POTASSIUM 4.5 MMOL/L (3.6-5.0)
[2021-10-02 06:18] LABS: CALCIUM 8.9 MG/DL (8.5-10.1)
[2021-10-02 06:20] LABS: TOTAL PROTEIN 5.9 GM/DL (6.4-8.2)
[2021-10-02 06:21] LABS: BILIRUBIN,TOTAL 0.7 MG/DL (0.1-1.0)
[2021-10-02 06:23] LABS: CREATININE SERUM 0.98 MG/DL (0.60-1.30); PHOSPHORUS 3.8 MG/DL (2.3-4.7)
[2021-10-02] MEDS: POTASSIUM CL 10MEQ/50ML IVPB 50 ML IV SCH (06:23)
[2021-10-02] MEDS: MAGNESIUM 1 GM/100 ML IVPB 100 ML IV SCH (06:24)
[2021-10-02] MEDS: KCL 20 MEQ TAB (K-DUR) PO SCH (06:24)
[2021-10-02 06:26] LABS: MAGNESIUM 2.6 MG/DL (1.6-2.4)
[2021-10-02 07:24] LABS: EOSINOPHILS % (MANUAL) 1 %; LYMPHOCYTES % (MANUAL) 12 %; MONOCYTES % (MANUAL) 8 %; NEUTROPHILS % (MANUAL) 79 %
[2021-10-02] MEDS: amLODIPine 5 MG (NORVASC) TAB PO SCH (08:05)
[2021-10-02] MEDS: LORATADINE (CLARITIN) 10 MG TAB PO SCH (08:05)
[2021-10-02] MEDS: LITHIUM CARB SR 450 MG (ESKALITH-CR) TAB PO SCH ×2 (08:05→21:12)
--- NOTE | 2021-10-02 09:17 | Progress Note - Hospitalist ---
Subjective HPI/CC On Admission Date Seen by Provider: Oct 02, 2021 Time Seen by Provider: 11:00 CC: Covid-19 acute hypoxic respiratory failure HPI: This ia 56yo mentally disabled WM who presented with Covid-19 with hypoxia and sepsis. elevated Lactic acid of 4 resolved with IV fluids. Actemra indicated due to progression and could be at risk for intubation. Remains on Vapotherm 40/100 and titrating down to 90. Subjective/Events-last exam Patient doing much better on BiPAP and Precedex BiPAP is at 40% White count 15 Review of Systems Pulmonary: Dyspnea Focused Exam Time of Focused Exam: 15:42 Objective Exam Vital Signs Vital Signs Date Time Temp Pulse Resp B/P (MAP) Pulse Ox O2 Delivery O2 Flow Rate FiO2 10/03/21 06:00 60 18 120/85 (97) 94 NIV Bilevel 45.00 10/03/21 03:52 45 10/03/21 02:48 36.4 Capillary Refill : Less Than 3 Seconds General Appearance: No Apparent Distress, WD/WN, Chronically ill Respiratory: Lungs Clear, Normal Breath Sounds Cardiovascular: Regular Rate, Rhythm Neurologic/Psychiatric: Alert, Oriented x3 Results/Procedures Lab Laboratory Tests 10/03/21 04:50 Patient resulted labs reviewed. Assessment/Plan Assessment and Plan Assess & Plan/Chief Complaint Assessment: Acute hypoxic respiratory failure COVID-19 pneumonia Mental illness on lithium Hypertension Elevated lactic acid on admit status post fluids now resolved we will Hep-Lock to prevent volume overload Plan: Vapotherm Actemra High risk for intubation Hep-Lock IV fluid Home meds 09/28/21: Supportive care Vapotherm wean 09/29/2021: ICU transfer Supportive care Intubation risk 09/30/2021: BiPAP dependence 10/01/2021: Still high risk for intubation Keep in ICU 10/02/2021: Supportive care BiPAP Precedex Critical Care Critically Ill Patient Diagnosis/Problems Diagnosis/Problems (1) Acute respiratory failure due to severe acute respiratory syndrome coronavirus 2 (SARS-CoV-2) infection Status: Acute (2) Sepsis Status: Acute Qualifiers: Sepsis type: sepsis due to unspecified organism Sepsis acute organ dys function status: without acute organ dysfunction Qualified Codes: A41.9 - Sepsis, unspecified organism (3) Hypoxia Status: Acute (4) Dehydration Status: Acute (5) Renal insufficiency Status: Acute GABE COLORADO DO Oct 02, 2021 09:17
--- NOTE | 2021-10-02 10:33 | Tele-ICU Progress Note ---
Progress Note video rounds completed 56y/o male with covid PNA on BIPAP, FIO2 35% PE: appears comfortable VSS WBC 15.1 Overall stable , but high risk for intubation Focused Exam Height, Weight, BMI Height: '" Weight: lbs. oz. kg; 30.00 BMI Method: Time of Focused Exam: 15:42 Laboratory Tests 10/02/21 04:57 Results/Procedures Lab Laboratory Tests 10/01/21 04:48 10/02/21 04:57 MARIA DE JESUS RM MD Oct 02, 2021 10:33
[2021-10-02] MEDS: DEUTETRABENAZINE 9 MG PO SCH (18:15)
[2021-10-02] MEDS: DexMEDEtomidine 250 ML DRIP 250 ML IV SCH (18:24)
[2021-10-02] MEDS: MIRTAZAPINE 15 MG (REMERON) TAB PO SCH (21:12)
[2021-10-02] MEDS: ENOXAPARIN 40 MG/0.4 ML (LOVENOX) SYR SC SCH (21:12)
[2021-10-03] VITALS (24 sets, daily range): BP systolic 106–136; BP diastolic 74–117
[2021-10-03] MEDS: RT-ALBUTEROL HFA 8.5 GM INHALER IH SCH ×6 (03:01→21:44)
[2021-10-03 04:57] LABS: BASOPHILS # (AUTO) 0.1 10^3/uL (0.0-0.1); BASOPHILS % (AUTO) 1 % (0-10); EOSINOPHILS # (AUTO) 0.1 10^3/uL (0.0-0.3); EOSINOPHILS % (AUTO) 1 % (0-10); HEMATOCRIT 48 % (40-54); HEMOGLOBIN 15.6 g/dL (13.3-17.7); LYMPHOCYTES # (AUTO) 2.9 10^3/uL (1.0-4.0); LYMPHOCYTES % (AUTO) 17 % (12-44); MEAN CORPUSCULAR HEMOGLOBIN 30 pg (25-34); MEAN CORPUSCULAR HGB CONC 32 g/dL (32-36); MEAN CORPUSCULAR VOLUME 91 fL (80-99); MEAN PLATELET VOLUME 11.7 fL (9.0-12.2); MONOCYTES # (AUTO) 0.9 10^3/uL (0.0-1.0); MONOCYTES % (AUTO) 6 % (0-12); NEUTROPHILS # (AUTO) 11.5 10^3/uL (1.8-7.8); NEUTROPHILS % (AUTO) 69 % (42-75); PLATELET COUNT 171 10^3/uL (130-400); WHITE BLOOD COUNT 16.6 10^3/uL (4.3-11.0)
[2021-10-03 05:12] LABS: ALBUMIN 3.3 GM/DL (3.2-4.5); POTASSIUM 4.3 MMOL/L (3.6-5.0)
[2021-10-03 05:13] LABS: CALCIUM 8.7 MG/DL (8.5-10.1)
[2021-10-03 05:14] LABS: TOTAL PROTEIN 5.8 GM/DL (6.4-8.2)
[2021-10-03 05:16] LABS: BILIRUBIN,TOTAL 0.8 MG/DL (0.1-1.0)
[2021-10-03 05:18] LABS: CREATININE SERUM 1.05 MG/DL (0.60-1.30); PHOSPHORUS 4.5 MG/DL (2.3-4.7)
[2021-10-03 05:21] LABS: MAGNESIUM 2.4 MG/DL (1.6-2.4)
[2021-10-03] MEDS: inSUlin ASPART (NovoLOG) 1 UNIT/0.01 ML (CHARGE PER UNIT) SC SCH ×3 (05:21→17:43)
[2021-10-03] MEDS: POTASSIUM CL 10MEQ/50ML IVPB 50 ML IV SCH (05:21)
[2021-10-03] MEDS: KCL 20 MEQ TAB (K-DUR) PO SCH (05:21)
[2021-10-03] MEDS: MAGNESIUM 1 GM/100 ML IVPB 100 ML IV SCH (05:21)
[2021-10-03] MEDS: PANTOPRAZOLE 40 MG (PROTONIX) TAB PO SCH (06:16)
[2021-10-03] MEDS: LITHIUM CARB SR 450 MG (ESKALITH-CR) TAB PO SCH ×2 (09:10→21:29)
[2021-10-03] MEDS: amLODIPine 5 MG (NORVASC) TAB PO SCH (09:10)
[2021-10-03] MEDS: LORATADINE (CLARITIN) 10 MG TAB PO SCH (09:16)
[2021-10-03] MEDS: DEUTETRABENAZINE 9 MG PO SCH ×2 (09:16→17:42)
--- NOTE | 2021-10-03 10:27 | Tele-ICU Progress Note ---
Subjective Date Seen by a Provider: Oct 03, 2021 Time Seen by a Provider: 10:05 Subjective/Events-last exam Patient is on a BiPAP and tolerating well. He does have a history of tardive dyskinesia and he was on lithium. [place] is started today. We will get a level of lithium today. He is currently on a BiPAP 15/5 with 45% FiO2. Will consider weaning him to high flow nasal cannula. Meanwhile we will continue Precedex due to his underlying tardive dyskinesia. Video visit made and discussed with the EDGING MACHINE CATCHER. Review of Systems ROS PER ATTENDING. Sepsis Event Evaluation Height, Weight, BMI Height: '" Weight: lbs. oz. kg; 30.00 BMI Method: Focused Exam Time of Focused Exam: 15:42 Exam Exam Patient acknowledged, consented, and participated in this virtual visit which was conducted using real time audio/video Vital Signs Date Time Temp Pulse Resp B/P (MAP) Pulse Ox O2 Delivery O2 Flow Rate FiO2 10/03/21 10:06 90 Vapotherm 40.00 45 10/03/21 08:45 95 NIV Bilevel 45 10/03/21 08:00 36.6 10/03/21 07:15 64 23 94 45.00 10/03/21 06:00 60 18 120/85 (97) 94 NIV Bilevel 45.00 10/03/21 05:00 61 15 114/82 (93) 93 NIV Bilevel 45.00 10/03/21 04:00 58 19 109/75 (86) 95 NIV Bilevel 45.00 10/03/21 03:52 95 NIV Bilevel 45 10/03/21 03:01 64 23 94 45.00 10/03/21 03:00 61 15 114/82 (93) 93 NIV Bilevel 45.00 10/03/21 02:48 36.4 NIV Bilevel 45.00 10/03/21 02:00 59 22 112/81 (91) 94 NIV Bilevel 45.00 10/03/21 01:00 61 10/03/21 01:00 61 19 106/77 (87) 93 NIV Bilevel 45.00 10/03/21 00:00 62 17 109/78 (88) 93 NIV Bilevel 45.00 10/02/21 23:42 94 NIV Bilevel 45 10/02/21 23:00 36.2 NIV Bilevel 45.00 10/02/21 22:00 70 19 108/77 (87) 95 NIV Bilevel 45.00 10/02/21 21:39 NIV Bilevel 45.00 10/02/21 21:29 73 19 92 45.00 10/02/21 21:00 74 17 114/81 (92) 89 Vapotherm 30.00 70.00 10/02/21 20:00 93 Vapotherm 30.00 70 10/02/21 20:00 78 19 111/70 (84) 93 Vapotherm 30.00 70.00 10/02/21 20:00 35.9 10/02/21 19:32 92 Vapotherm 30.00 70 10/02/21 19:00 65 10/02/21 19:00 66 20 103/696 (500) 94 Vapotherm 30.00 70.00 10/02/21 19:00 74 10/02/21 19:00 Vapotherm 30.00 70.00 10/02/21 18:24 65 118/83 10/02/21 18:00 60 18 118/83 (95) 92 Vapotherm 30.00 70.00 10/02/21 17:00 58 17 120/81 (94) 97 Vapotherm 30.00 70.00 10/02/21 16:34 36.1 10/02/21 16:00 60 15 109/78 (88) 92 Vapotherm 30.00 70.00 10/02/21 16:00 92 NIV Bilevel 30.00 70 10/02/21 15:00 63 13 109/78 (89) 86 Vapotherm 30.00 70.00 10/02/21 14:45 Vapotherm 30.00 70.00 10/02/21 14:39 94 Vapotherm 30.00 70 10/02/21 14:33 65 19 91 35.00 10/02/21 14:00 66 19 109/78 (90) 92 NIV Bilevel 35.00 10/02/21 13:00 58 23 115/81 (94) 90 NIV Bilevel 35.00 10/02/21 13:00 63 10/02/21 12:00 62 16 118/78 (84) 90 NIV Bilevel 35.00 10/02/21 11:47 92 NIV Bilevel 40.00 10/02/21 11:04 NIV Bilevel 35.00 10/02/21 11:00 59 20 125/86 (99 93 NIV Bilevel 40.00 I & O 10/03/21 07:00 Intake Total 1640 ml Output Total 1050 ml Balance 590 ml Height & Weight Height: '" Weight: lbs. oz. kg; 30.00 BMI Method: General Appearance: No Apparent Distress, WD/WN, Chronically ill HEENT: PERRL/EOMI, Normal ENT Inspection, Pharynx Normal, Moist Mucous Membranes Neck: Full Range of Motion, Normal Inspection, Non Tender Respiratory: Lungs Clear, Normal Breath Sounds Cardiovascular: Regular Rate, Rhythm Capillary Refill: Less Than 3 Seconds Peripheral Pulses: 2+ Radial Pulses (R) Extremity: Normal Capillary Refill, Normal Inspection, Normal Range of Motion, Non Tender, No Calf Tenderness, No Pedal Edema Neurologic/Psychiatric: Alert, Oriented x3 Skin: Normal Color, Warm/Dry Lymphatic: No Adenopathy Other comments pe per attending physician . Results Lab Laboratory Tests 10/02/21 04:57 10/03/21 04:50 Assessment/Plan Assessment/Plan 1. Acute Covid19 pneumonia 2. Acute hypoxic respiratory failure secondary to Covid pneumonia. 3. High risk for DVT and a PE 4. Elevated liver enzymes probably due to Covid pneumonia. 5. History of Tardive Dyskinesia Recommendations 1. Continue BiPAP ventilation and wean FiO2 as tolerated 2. IV dexamethasone 3. IV antibiotics per primary care team 4. Sliding scale coverage per hyperglycemia 5. DVT prophylaxis and ulcer prophylaxis. 6. Reviewed with the EDGING MACHINE CATCHER and continue to monitor his progress. 7. will get Seneca level and oral lithium today Critical Care: Critically Ill Patient Time spent with patient (mins): 20 VIK LUQUE MD Oct 03, 2021 10:27
--- NOTE | 2021-10-03 10:47 | Progress Note - Hospitalist ---
Subjective HPI/CC On Admission Date Seen by Provider: Oct 03, 2021 Time Seen by Provider: 11:00 CC: Covid-19 acute hypoxic respiratory failure HPI: This ia 56yo mentally disabled WM who presented with Covid-19 with hypoxia and sepsis. elevated Lactic acid of 4 resolved with IV fluids. Actemra indicated due to progression and could be at risk for intubation. Remains on Vapotherm 40/100 and titrating down to 90. Subjective/Events-last exam Patient maintained on Vapotherm Precedex helping No longer BiPAP dependent Restarted psych meds [place] level ordered On 40 L 45% settings from Vapotherm Review of Systems General: Fatigue Pulmonary: Dyspnea Focused Exam Time of Focused Exam: 15:42 Objective Exam Vital Signs Vital Signs Date Time Temp Pulse Resp B/P (MAP) Pulse Ox O2 Delivery O2 Flow Rate FiO2 10/03/21 15:02 91 Vapotherm 40.00 45 10/03/21 12:00 37.1 83 16 112/79 (90) Capillary Refill : Less Than 3 Seconds General Appearance: Anxious, Chronically ill, Mild Distress, Obese Respiratory: No Accessory Muscle Use, No Respiratory Distress, Decreased Breath Sounds Cardiovascular: Regular Rate, Rhythm Neurologic/Psychiatric: Alert, Oriented x3, No Motor/Sensory Deficits, Normal Mood/Affect Results/Procedures Lab Laboratory Tests 10/03/21 04:50 Patient resulted labs reviewed. Assessment/Plan Assessment and Plan Assess & Plan/Chief Complaint Assessment: Acute hypoxic respiratory failure COVID-19 pneumonia Mental illness on lithium Hypertension Elevated lactic acid on admit status post fluids now resolved we will Hep-Lock to prevent volume overload Plan: Vapotherm Actemra High risk for intubation Hep-Lock IV fluid Home meds 09/28/21: Supportive care Vapotherm wean 09/29/2021: ICU transfer Supportive care Intubation risk 09/30/2021: BiPAP dependence 10/01/2021: Still high risk for intubation Keep in ICU 10/02/2021: Supportive care BiPAP Precedex 10/03/2021: Precedex Vapotherm Critical Care Critically Ill Patient Diagnosis/Problems Diagnosis/Problems (1) Acute respiratory failure due to severe acute respiratory syndrome coronavirus 2 (SARS-CoV-2) infection Status: Acute (2) Sepsis Status: Acute Qualifiers: Sepsis type: sepsis due to unspecified organism Sepsis acute organ dysfunction status: without acute organ dysfunction Qualified Codes: A41.9 - Sepsis, unspecified organism (3) Hypoxia Status: Acute (4) Dehydration Status: Acute (5) Renal insufficiency Status: Acute GABE COLORADO DO Oct 03, 2021 10:47
[2021-10-03] MEDS: ENOXAPARIN 40 MG/0.4 ML (LOVENOX) SYR SC SCH (21:28)
[2021-10-03] MEDS: MIRTAZAPINE 15 MG (REMERON) TAB PO SCH (21:28)
[2021-10-04] VITALS (27 sets, daily range): BP systolic 86–162; BP diastolic 42–119
[2021-10-04] MEDS: inSUlin ASPART (NovoLOG) 1 UNIT/0.01 ML (CHARGE PER UNIT) SC SCH ×5 (00:28→23:51)
[2021-10-04] MEDS: RT-ALBUTEROL HFA 8.5 GM INHALER IH SCH ×6 (02:39→21:54)
[2021-10-04 05:41] LABS: BASOPHILS # (AUTO) 0.1 10^3/uL (0.0-0.1); BASOPHILS % (AUTO) 0 % (0-10); EOSINOPHILS # (AUTO) 0.1 10^3/uL (0.0-0.3); EOSINOPHILS % (AUTO) 1 % (0-10); HEMATOCRIT 46 % (40-54); LYMPHOCYTES # (AUTO) 2.8 10^3/uL (1.0-4.0); LYMPHOCYTES % (AUTO) 17 % (12-44); MEAN CORPUSCULAR HEMOGLOBIN 30 pg (25-34); MEAN CORPUSCULAR HGB CONC 33 g/dL (32-36); MEAN CORPUSCULAR VOLUME 92 fL (80-99); MEAN PLATELET VOLUME 11.2 fL (9.0-12.2); MONOCYTES % (AUTO) 6 % (0-12); NEUTROPHILS # (AUTO) 11.4 10^3/uL (1.8-7.8); NEUTROPHILS % (AUTO) 70 % (42-75); PLATELET COUNT 177 10^3/uL (130-400); WHITE BLOOD COUNT 16.4 10^3/uL (4.3-11.0)
[2021-10-04 06:00] LABS: ALBUMIN 3.3 GM/DL (3.2-4.5); POTASSIUM 3.9 MMOL/L (3.6-5.0)
[2021-10-04 06:01] LABS: CALCIUM 8.7 MG/DL (8.5-10.1)
[2021-10-04 06:02] LABS: TOTAL PROTEIN 5.7 GM/DL (6.4-8.2)
[2021-10-04 06:04] LABS: BILIRUBIN,TOTAL 0.7 MG/DL (0.1-1.0)
[2021-10-04 06:06] LABS: CREATININE SERUM 0.97 MG/DL (0.60-1.30); PHOSPHORUS 4.1 MG/DL (2.3-4.7)
[2021-10-04] MEDS: POTASSIUM CL 10MEQ/50ML IVPB 50 ML IV SCH (06:07)
[2021-10-04] MEDS: KCL 20 MEQ TAB (K-DUR) PO SCH (06:07)
[2021-10-04 06:09] LABS: MAGNESIUM 2.3 MG/DL (1.6-2.4)
[2021-10-04] MEDS: MAGNESIUM 1 GM/100 ML IVPB 100 ML IV SCH (06:25)
[2021-10-04] MEDS: PANTOPRAZOLE 40 MG (PROTONIX) TAB PO SCH (06:25)
[2021-10-04] MEDS: LORATADINE (CLARITIN) 10 MG TAB PO SCH (08:08)
[2021-10-04] MEDS: amLODIPine 5 MG (NORVASC) TAB PO SCH (08:08)
[2021-10-04] MEDS: DEUTETRABENAZINE 9 MG PO SCH ×2 (08:14→18:02)
--- NOTE | 2021-10-04 12:27 | Tele-ICU Progress Note ---
Subjective Date Seen by a Provider: Oct 04, 2021 Time Seen by a Provider: 10:12 Sepsis Event Evaluation Height, Weight, BMI Height: '" Weight: lbs. oz. kg; 30.00 BMI Method: Focused Exam Time of Focused Exam: 15:42 Exam Exam Patient acknowledged, consented, and participated in this virtual visit which was conducted using real time audio/video Vital Signs Date Time Temp Pulse Resp B/P (MAP) Pulse Ox O2 Delivery O2 Flow Rate FiO2 10/04/21 12:16 Vapotherm 40.00 45 10/04/21 12:11 36.6 10/04/21 10:55 92 Vapotherm 40.00 50 10/04/21 10:45 98 94 Vapotherm 40.00 50.00 10/04/21 10:30 105 95 Vapotherm 40.00 50.00 10/04/21 10:15 108 93 Vapotherm 40.00 50.00 10/04/21 10:00 104 133/114 (123) 92 Vapotherm 40.00 50.00 10/04/21 09:59 96 Vapotherm 40.00 50.00 10/04/21 09:45 90 87 Vapotherm 40.00 50.00 10/04/21 09:30 94 94 Vapotherm 40.00 50.00 10/04/21 09:15 96 89 Vapotherm 30.00 90.00 10/04/21 09:00 89 31 123/109 (114) 86 Vapotherm 30.00 90.00 10/04/21 08:45 87 14 89 10/04/21 08:38 Vapotherm 30.00 45.00 10/04/21 08:30 92 30 10/04/21 08:20 Vapotherm 40.00 45 10/04/21 08:11 90 23 147/95 (112) 92 Vapotherm 30.00 40.00 10/04/21 08:08 90 19 147/95 (118) 92 NIV Bilevel 10/04/21 08:05 36.1 10/04/21 08:03 84 26 124/91 (107) 93 NIV Bilevel 10/04/21 08:00 82 21 104/96 (101) 92 NIV Bilevel 10/04/21 07:45 75 21 95 NIV Bilevel 10/04/21 07:30 76 17 96 NIV Bilevel 10/04/21 07:15 80 25 95 NIV Bilevel 10/04/21 07:00 74 22 91/74 (83) NIV Bilevel 10/04/21 07:00 79 10/04/21 06:45 95 Vapotherm 40.00 45 10/04/21 06:00 66 20 99/71 (81) 95 NIV Bilevel 45.00 10/04/21 05:00 58 15 112/78 (89) 94 NIV Bilevel 45.00 10/04/21 04:00 91 Vapotherm 40.00 45 10/04/21 04:00 58 13 105/74 (84) 95 NIV Bilevel 45.00 10/04/21 03:22 59 13 94 10/04/21 03:07 60 15 96 10/04/21 03:00 59 14 110/85 (100) 95 NIV Bilevel 45.00 10/04/21 03:00 59 13 110/85 (100) 10/04/21 02:52 61 14 94 10/04/21 02:40 95 Vapotherm 40.00 45 10/04/21 02:37 62 14 95 10/04/21 02:00 59 14 115/76 (90) 95 10/04/21 02:00 58 14 115/76 (90) 95 NIV Bilevel 45.00 10/04/21 01:00 60 10/04/21 01:00 60 16 113/79 (93) 10/04/21 01:00 60 18 113/79 (93) 95 NIV Bilevel 45.00 10/04/21 00:00 91 Vapotherm 40.00 45 10/04/21 00:00 67 15 124/94 (109) 96 NIV Bilevel 45.00 10/04/21 00:00 64 14 124/94 (109) 95 10/03/21 23:52 61 16 96 10/03/21 23:37 63 18 95 10/03/21 23:00 64 15 116/83 (94) 95 NIV Bilevel 45.00 10/03/21 22:00 72 17 106/76 (89) 95 NIV Bilevel 45.00 10/03/21 21:45 97 Vapotherm 40.00 45 10/03/21 21:00 68 9 114/77 (91) 93 NIV Bilevel 45.00 10/03/21 20:18 35.7 12/5/21 20:00 95 Vapotherm 40.00 45 10/03/21 20:00 77 15 110/88 (100) 93 NIV Bilevel 45.00 10/03/21 19:01 93 Vapotherm 40.00 45 10/03/21 19:00 86 18 129/111 (119) 93 NIV Bilevel 45.00 10/03/21 19:00 86 10/03/21 18:00 92 17 112/94 (104) 92 NIV Bilevel 45.00 10/03/21 17:00 82 13 107/81 (88) 94 NIV Bilevel 45.00 10/03/21 16:11 91 Vapotherm 40.00 45 10/03/21 16:00 36.4 10/03/21 16:00 96 18 127/97 (106) 86 NIV Bilevel 45.00 10/03/21 15:02 91 Vapotherm 40.00 45 10/03/21 15:00 90 112/80 (91) 89 NIV Bilevel 45.00 10/03/21 14:00 90 34 136/117 (123) 88 NIV Bilevel 45.00 10/03/21 13:00 81 15 117/95 (102) 88 NIV Bilevel 45.00 10/03/21 13:00 82 I & O 10/04/21 07:00 Intake Total 2215 ml Output Total 1225 ml Balance 990 ml Height & Weight Height: '" Weight: lbs. oz. kg; 30.00 BMI Method: General Appearance: Anxious, Chronically ill, Mild Distress, Obese HEENT: PERRL/EOMI, Normal ENT Inspection, Pharynx Normal, Moist Mucous Membranes Neck: Full Range of Motion, Normal Inspection, Non Tender Respiratory: No Accessory Muscle Use, No Respiratory Distress, Decreased Breath Sounds Cardiovascular: Regular Rate, Rhythm Capillary Refill: Less Than 3 Seconds Peripheral Pulses: 2+ Radial Pulses (R) Extremity: Normal Capillary Refill, Normal Inspection, Normal Range of Motion, Non Tender, No Calf Tenderness, No Pedal Edema Neurologic/Psychiatric: Alert, Oriented x3, No Motor/Sensory Deficits, Normal Mood/Affect Skin: Normal Color, Warm/Dry Lymphatic: No Adenopathy Results Lab Laboratory Tests 10/03/21 04:50 10/04/21 05:25 Assessment/Plan Assessment/Plan (Tele-ICU Physician , Progress Note ) Available chart/ vitals / labs / Images reviewed Video assessment done using teleICU camera, rest of exam as per RN Discussed with RN , EXAM PER RN Events overnight : Afebrile FiO2 - vapotherm 40 L / 60 % I/O = pos 1 l Drips: Pressors: , hemodynamically stable Consultants: Hospital course: (09/26) 56M Admitted for COVID PNA 10/01 - vapotherm 40/100 and has been unable to tolerate Bipap (09/29) Transferred to ICU increased oxygen requirement. Bipap placed. 10/04 - vapotherm 40 L / 60 % A/P acute hypoxic respiratory failure -vapotherm 40 L / 60 % -Unable to tolerate BiPAP due to claustrophobia- with precedex dis ok on BiPAP 13/03 with 45% FiO2 -prone positioning COVID pneumonia -Dexamethasone 09/27 -S/P tocalizumab 09/27 -Hypercoagulable state -> lovenox ppx dose , follow D dimer tomorrow Suspected superimposed bact PNA -empiric abx ceftriaxone 09/26- 10/01 hyperglycemia - ISS , close f/up on steroids transaminitis likely due to COVID-19. - improving Bipolar disorder, -underlying tardive dyskinesia HTN, GERD Lines : periph (Central Line Necessity Reviewed) Neff: OG: Nutrition: po Analgesia: Anxiety/ delirium VTE Prophylaxis: sandra 40 Stress Ulcer Prophylaxis: ppi Glycemic Control: Plans in collaboration with bedside consultants and IM MDs. Discussed with RN to reach out if any questions or concerns A total of 31 minutes of critical care time was devoted to this patient today, required to treat and/or prevent further deterioration of critical care condition ( as above) . MANISH LEWIS MD Oct 04, 2021 12:27
[2021-10-04] MEDS: LITHIUM CARB SR 450 MG (ESKALITH-CR) TAB PO SCH ×2 (16:00→20:46)
[2021-10-04] MEDS: MIRTAZAPINE 15 MG (REMERON) TAB PO SCH (20:46)
[2021-10-04] MEDS: ENOXAPARIN 40 MG/0.4 ML (LOVENOX) SYR SC SCH (20:47)
--- NOTE | 2021-10-04 21:29 | Progress Note ---
Subjective Subjective/Events-last exam Patient remains on vapotherm. Tolerating PO diet. Denies any pain Review of Systems General: Malaise Pulmonary: Dyspnea, Cough Cardiovascular: No: Chest Pain, Palpitations Gastrointestinal: No: Nausea, Vomiting, Abdominal Pain, Diarrhea, Constipation Neurological: Weakness, Incoordination Focused Exam Time of Focused Exam: 15:42 Objective Exam Last Set of Vital Signs Vital Signs Date Time Temp Pulse Resp B/P (MAP) Pulse Ox O2 Delivery O2 Flow Rate FiO2 10/04/21 19:50 36.0 Vapotherm 25.00 25.00 10/04/21 18:51 100 25 10/04/21 18:00 105 25 10/04/21 17:50 162/93 (131) Capillary Refill : Less Than 3 Seconds I&O Intake and Output 10/04/21 00:00 Intake Total 2130 ml Output Total 1200 ml Balance 930 ml Intake Oral 2130 ml Output Urine Total 1200 ml General: Alert, Oriented X3, Mild Distress (with activity) Lungs: Clear to Auscultation, Normal Air Movement Heart: Regular Rate, No Murmurs Abdomen: Normal Bowel Sounds, Soft, No Tenderness, No Masses Extremities: No Edema, No Tenderness/Swelling Results/Procedures Lab Laboratory Tests 10/03/21 23:59: Glucometer 194H 10/04/21 05:25: White Blood Count 16.4H, Red Blood Count 4.99, Hemoglobin 15.0, Hematocrit 46, Mean Corpuscular Volume 92, Mean Corpuscular Hemoglobin 30, Mean Corpuscular Hemoglobin Concent 33, Red Cell Distribution Width 13.4, Platelet Count 177, Mean Platelet Volume 11.2, Immature Granulocyte % (Auto) 6, Neutrophils (%) (Auto) 70, Lymphocytes (%) (Auto) 17, Monocytes (%) (Auto) 6, Eosinophils (%) (Auto) 1, Basophils (%) (Auto) 0, Neutrophils # (Auto) 11.4H, Lymphocytes # (Auto) 2.8, Monocytes # (Auto) 1.0, Eosinophils # (Auto) 0.1, Basophils # (Auto) 0.1, Immature Granulocyte # (Auto) 1.0H, Sodium Level 140, Potassium Level 3.9, Chloride Level 109H, Carbon Dioxide Level 20L, Anion Gap 11, Blood Urea Nitrogen 34H, Creatinine 0.97, Estimat Glomerular Filtration Rate 97, BUN/Creatinine Ratio 35, Glucose Level 176H, Calcium Level 8.7, Corrected Calcium 9.3, Phosphorus Level 4.1, Magnesium Level 2.3, Total Bilirubin 0.7, Aspartate Amino Transf (AST/SGOT) 48H, Alanine Aminotransferase (ALT/SGPT) 78H, Alkaline Phosphatase 56, Total Protein 5.7L, Albumin 3.3 10/04/21 12:09: Glucometer 345H 10/04/21 17:56: Glucometer 222H Microbiology 09/29/21 MRSA Screen - Final, Complete MRSA not isolated 09/26/21 Blood Culture - Final, Complete No growth Assessment/Plan Assessment/Plan (1) Acute respiratory disease due to COVID-19 virus Status: Acute Assessment & Plan: 10/04: Continue to titrate as tolerated, Vapotherm, MAT protocol, S/p Actrema (2) Pneumonia due to COVID-19 virus Status: Acute (3) Hypoxia Status: Acute (4) HTN (hypertension) Status: Chronic Qualifiers: Qualified Codes: I10 - Essential (primary) hypertension (5) DVT prophylaxis Status: Acute Assessment & Plan: - ASH Bryan MD Oct 04, 2021 21:29
[2021-10-05] VITALS (12 sets, daily range): BP systolic 102–169; BP diastolic 79–99
[2021-10-05] MEDS: RT-ALBUTEROL HFA 8.5 GM INHALER IH SCH ×6 (02:34→22:34)
[2021-10-05 05:40] LABS: ALBUMIN 3.4 GM/DL (3.2-4.5); POTASSIUM 3.5 MMOL/L (3.6-5.0)
[2021-10-05 05:41] LABS: CALCIUM 8.6 MG/DL (8.5-10.1)
[2021-10-05 05:43] LABS: TOTAL PROTEIN 5.8 GM/DL (6.4-8.2)
[2021-10-05 05:44] LABS: BASOPHILS # (AUTO) 0.1 10^3/uL (0.0-0.1); BASOPHILS % (AUTO) 1 % (0-10); BILIRUBIN,TOTAL 0.8 MG/DL (0.1-1.0); EOSINOPHILS # (AUTO) 0.1 10^3/uL (0.0-0.3); EOSINOPHILS % (AUTO) 1 % (0-10); HEMATOCRIT 47 % (40-54); HEMOGLOBIN 15.3 g/dL (13.3-17.7); LYMPHOCYTES # (AUTO) 3.6 10^3/uL (1.0-4.0); LYMPHOCYTES % (AUTO) 19 % (12-44); MEAN CORPUSCULAR HEMOGLOBIN 30 pg (25-34); MEAN CORPUSCULAR HGB CONC 33 g/dL (32-36); MEAN CORPUSCULAR VOLUME 91 fL (80-99); MEAN PLATELET VOLUME 11.6 fL (9.0-12.2); MONOCYTES # (AUTO) 1.6 10^3/uL (0.0-1.0); MONOCYTES % (AUTO) 8 % (0-12); NEUTROPHILS # (AUTO) 12.7 10^3/uL (1.8-7.8); NEUTROPHILS % (AUTO) 67 % (42-75); PLATELET COUNT 230 10^3/uL (130-400); WHITE BLOOD COUNT 19.1 10^3/uL (4.3-11.0)
[2021-10-05 05:46] LABS: CREATININE SERUM 0.92 MG/DL (0.60-1.30); PHOSPHORUS 3.3 MG/DL (2.3-4.7)
[2021-10-05 05:49] LABS: MAGNESIUM 2.3 MG/DL (1.6-2.4)
--- NOTE | 2021-10-05 07:05 | Diagnostic Imaging Report ---
INDICATION: COVID positive, hypoxia. TECHNIQUE: Single view chest 3:57 AM. CORRELATION STUDY: 10/01/2021 FINDINGS: Extensive patchy 5 lobe pulmonary infiltrate is again demonstrated. Overall generally slightly improved. Exception may be slightly more consolidation at the left lung base. Mediastinal structures appear generally stable. IMPRESSION: 1. Extensive 5 lobe pulmonary infiltrate is again demonstrated. Stable to perhaps minimally improved. Exception slightly more consolidated at the left lung base. Dictated by: Dictated on workstation # [id number]
[2021-10-05] MEDS: POTASSIUM CL 10MEQ/50ML IVPB 50 ML IV SCH (07:36)
[2021-10-05] MEDS: KCL 20 MEQ TAB (K-DUR) PO SCH (07:37)
[2021-10-05] MEDS: MAGNESIUM 1 GM/100 ML IVPB 100 ML IV SCH (07:37)
[2021-10-05] MEDS: inSUlin ASPART (NovoLOG) 1 UNIT/0.01 ML (CHARGE PER UNIT) SC SCH ×2 (07:38→12:24)
[2021-10-05] MEDS ORDERED: KCL 20 MEQ TAB (K-DUR) PO NR (08:00)
[2021-10-05] MEDS: DEUTETRABENAZINE 9 MG PO SCH ×2 (08:23→18:26)
[2021-10-05] MEDS: PANTOPRAZOLE 40 MG (PROTONIX) TAB PO SCH (08:23)
[2021-10-05] MEDS: LORATADINE (CLARITIN) 10 MG TAB PO SCH (08:24)
[2021-10-05] MEDS: amLODIPine 5 MG (NORVASC) TAB PO SCH (08:24)
[2021-10-05] MEDS: LITHIUM CARB SR 450 MG (ESKALITH-CR) TAB PO SCH ×2 (08:24→20:07)
--- NOTE | 2021-10-05 10:56 | Tele-ICU Progress Note ---
Subjective Date Seen by a Provider: Oct 05, 2021 Time Seen by a Provider: 10:56 Sepsis Event Evaluation Height, Weight, BMI Height: '" Weight: lbs. oz. kg; 30.00 BMI Method: Focused Exam Time of Focused Exam: 15:42 Exam Exam Patient acknowledged, consented, and participated in this virtual visit which was conducted using real time audio/video Vital Signs Date Time Temp Pulse Resp B/P (MAP) Pulse Ox O2 Delivery O2 Flow Rate FiO2 10/05/21 10:00 103 56 85 Nasal Cannula 2.00 10/05/21 09:45 103 25 86 Nasal Cannula 2.00 10/05/21 09:30 101 30 93 Nasal Cannula 2.00 10/05/21 09:15 100 29 91 Nasal Cannula 2.00 10/05/21 09:00 104 37 111/92 (100) 87 Nasal Cannula 2.00 10/05/21 08:45 104 39 89 Nasal Cannula 2.00 10/05/21 08:38 93 Nasal Cannula 2 10/05/21 08:31 36.0 10/05/21 08:15 90 20 93 Nasal Cannula 2.00 10/05/21 08:00 124/79 (88) 10/05/21 07:56 93 High Flow N/C 2.00 10/05/21 07:45 87 23 93 Nasal Cannula 2.00 10/05/21 07:30 89 25 94 Nasal Cannula 2.00 10/05/21 07:15 90 27 94 Nasal Cannula 2.00 10/05/21 07:00 89 23 102/93 (93) 88 Nasal Cannula 2.00 10/05/21 07:00 93 10/05/21 06:00 86 16 123/99 (109) 92 Nasal Cannula 2.00 10/05/21 05:00 78 17 122/84 (106) 96 Nasal Cannula 2.00 10/05/21 04:00 81 16 130/96 (109) 98 Nasal Cannula 2.00 10/05/21 04:00 Vapotherm 25.00 25 10/05/21 03:00 89 20 127/88 (100) 93 Nasal Cannula 2.00 10/05/21 02:34 96 Nasal Cannula 2.00 10/05/21 02:00 82 18 138/99 (121) 98 Nasal Cannula 2.00 10/05/21 01:00 82 19 119/88 (96) 96 Nasal Cannula 2.00 10/05/21 01:00 82 10/05/21 00:00 Vapotherm 25.00 25 10/05/21 00:00 86 22 131/90 (105) 95 Nasal Cannula 2.00 10/04/21 23:00 89 19 125/93 (101) 97 Nasal Cannula 2.00 10/04/21 22:00 91 20 137/91 (99) 97 Nasal Cannula 2.00 10/04/21 21:57 100 Vapotherm 25.00 25 10/04/21 21:00 101 21 147/112 (124) 91 Nasal Cannula 2.00 10/04/21 20:44 98 21 142/119 (136) 91 Nasal Cannula 2.00 10/04/21 20:00 36.7 10/04/21 20:00 99 27 120/110 (114) 98 Vapotherm 25.00 25.00 10/04/21 20:00 Vapotherm 25.00 25 10/04/21 19:50 36.0 Vapotherm 25.00 25.00 10/04/21 19:25 103 10/04/21 19:00 98 13 151/88 (100) 100 Vapotherm 25.00 25.00 10/04/21 18:51 100 Vapotherm 25.00 25 10/04/21 18:00 105 25 92 25.00 25.00 10/04/21 17:56 98 Vapotherm 25.00 25.00 10/04/21 17:50 97 18 162/93 (131) Vapotherm 25.00 30.00 10/04/21 17:45 98 23 Vapotherm 25.00 30.00 10/04/21 17:30 98 29 91 Vapotherm 25.00 30.00 10/04/21 17:15 101 20 90 Vapotherm 25.00 30.00 10/04/21 17:00 109 17 86/42 (57) 88 Vapotherm 25.00 30.00 10/04/21 16:45 104 22 92 Vapotherm 25.00 30.00 10/04/21 16:30 101 19 92 Vapotherm 25.00 30.00 10/04/21 16:15 101 16 91 Vapotherm 25.00 30.00 10/04/21 16:00 109 17 89 Vapotherm 25.00 30.00 10/04/21 15:52 110 40 92 Vapotherm 25.00 30.00 10/04/21 15:50 36.2 95 Vapotherm 25.00 30.00 10/04/21 15:45 105 38 92 Vapotherm 40.00 50.00 10/04/21 15:44 93 Vapotherm 25.00 30 10/04/21 15:30 106 19 129/98 (104) 88 Vapotherm 40.00 50.00 10/04/21 15:15 106 41 135/98 (106) 94 Vapotherm 40.00 50.00 10/04/21 15:00 113 16 144/75 (86) 90 Vapotherm 40.00 50.00 10/04/21 14:45 109 18 96 Vapotherm 40.00 50.00 10/04/21 14:30 114 20 92 Vapotherm 40.00 50.00 10/04/21 14:28 114 32 91 Vapotherm 40.00 50.00 10/04/21 14:25 106 15 95 Vapotherm 40.00 50.00 10/04/21 14:15 101 41 92 Vapotherm 40.00 50.00 10/04/21 14:08 93 Vapotherm 40.00 40 10/04/21 14:00 99 20 90/80 (87) 86 Vapotherm 40.00 50.00 10/04/21 13:45 99 45 87 Vapotherm 40.00 50.00 10/04/21 13:30 102 87 Vapotherm 40.00 50.00 10/04/21 13:23 36.3 10/04/21 13:15 94 35 94 Vapotherm 40.00 50.00 10/04/21 13:00 92 18 120/96 (102) 97 Vapotherm 40.00 50.00 10/04/21 12:58 105 10/04/21 12:16 Vapotherm 40.00 45 10/04/21 12:11 36.6 I & O 10/05/21 06:59 Intake Total 1750 ml Output Total 1325 ml Balance 425 ml Height & Weight Height: '" Weight: lbs. oz. kg; 30.00 BMI Method: General Appearance: Anxious, Chronically ill, Mild Distress, Obese HEENT: PERRL/EOMI, Normal ENT Inspection, Pharynx Normal, Moist Mucous M embranes Neck: Full Range of Motion, Normal Inspection, Non Tender Respiratory: No Accessory Muscle Use, No Respiratory Distress, Decreased Breath Sounds Cardiovascular: Regular Rate, Rhythm Capillary Refill: Less Than 3 Seconds Peripheral Pulses: 2+ Radial Pulses (R) Extremity: Normal Capillary Refill, Normal Inspection, Normal Range of Motion, Non Tender, No Calf Tenderness, No Pedal Edema Neurologic/Psychiatric: Alert, Oriented x3, No Motor/Sensory Deficits, Normal Mood/Affect Skin: Normal Color, Warm/Dry Lymphatic: No Adenopathy Results Lab Laboratory Tests 10/04/21 05:25 10/05/21 05:24 Assessment/Plan Assessment/Plan (Tele-ICU Physician , Progress Note ) Available chart/ vitals / labs / Images reviewed Video assessment done using teleICU camera, rest of exam as per RN Discussed with RN , EXAM PER RN Events overnight : Afebrile FiO2 - vapotherm 40 L / 60 % I/O = pos 1 l Drips: Pressors: , hemodynamically stable Consultants: Hospital course: (09/26) 56M Admitted for COVID PNA 10/01 - vapotherm 40/100 and has been unable to tolerate Bipap (09/29) Transferred to ICU increased oxygen requirement. Bipap placed. 10/04 - vapotherm 40 L / 60 % 10/05 - 2 L A/P acute hypoxic respiratory failure -vapotherm 40 L / 60 %- to 2 L today -Unable to tolerate BiPAP due to claustrophobia- with precedex dis ok on BiPAP 15/5 with 45% FiO2 -prone positioning COVID pneumonia -Dexamethasone 09/27 -S/P tocalizumab 09/27 - Acyclovir for HSV/VZV prophylaxis after Tocilizumab- 30 days 400 po bid - oreds placed in EMR WITH PHARMACY TO REVIEW INTERACTIONS with other meds -Hypercoagulable state -> been on lovenox ppx dose , D dimer is elevated - AT RISK FOR THROMBOEMBOLIC DZ - WILL CHECK CT AND US Suspected superimposed bact PNA -empiric abx ceftriaxone 09/26- 10/01 hyperglycemia - ISS , close f/up on steroids transaminitis likely due to COVID-19. - improving Bipolar disorder, -underlying tardive dyskinesia HTN, GERD Lines : periph (Central Line Necessity Reviewed) Neff: OG: Nutrition: po Analgesia: Anxiety/ delirium VTE Prophylaxis: sandra 40 Stress Ulcer Prophylaxis: ppi Glycemic Control: Plans in collaboration with bedside consultants and IM MDs. Discussed with RN to reach out if any questions or concerns A total of 31 minutes of critical care time was devoted to this patient today, required to treat and/or prevent further deterioration of critical care condition ( as above) . MANISH LEWIS MD Oct 05, 2021 10:56
[2021-10-05] MEDS ORDERED: CATHETER FLUSH 10 ML SYR IV PRN (11:00)
[2021-10-05] MEDS ORDERED: HOLD METFORMIN - RECEIVED CONTRAST 20 ML VIAL IV SCH (11:00)
[2021-10-05] MEDS ORDERED: IOHEXOL 350 MG/ML 100 ML (OMNIPAQUE 350) VIAL IV ONE (11:00)
[2021-10-05] MEDS ORDERED: NS 100 ML (IVPB) BAG IV ONE (11:00)
--- NOTE | 2021-10-05 12:35 | Diagnostic Imaging Report ---
PROCEDURE: US Venous Lower Ext Christopher. TECHNIQUE: Multiple real-time grayscale images were obtained over the lower extremities in various projections, bilaterally. Additional duplex Doppler and color Doppler images were also obtained. INDICATION: Lower extremity edema. Comparison: Non available. Findings: The bilateral common femoral, femoral and popliteal veins are patent by color doppler imaging and without DVT. Visualized proximal aspects of the greater saphenous, deep femoral, posterior tibial and peroneal veins are also patent. All of the evaluated deep venous structures demonstrate normal compressibility and waveform augmentation where applicable. Impression: No deep venous thrombosis in either of the lower extremities. Dictated by: Dictated on workstation # [id number]
--- NOTE | 2021-10-05 15:03 | Physical Therapy Evaluation ---
PT Evaluation-General Medical Diagnosis Admission Date Sep 26, 2021 at 17:25 Medical Diagnosis: covid 19 Onset Date: Sep 26, 2021 Therapy Diagnosis Therapy Diagnosis: impaired mobility, balance, endurance Precautions Precautions/Isolations: Airborne Isolation, Fall Prevention Referral Physician: Abundio Reason for Referral: Evaluation/Treatment Medical History Additional Medical History Past Medical History Currently Using CPAP: No Hypertension Developmental Disorder Sexually Transmitted Disease: No Bipolar, Schizophrenia Reviewed History: Yes Social History Current Living Status: Other Family (mother) Entry Into Home: Level Entry Prior Prior Level of Function SCALE: Activities may be completed with or without assistive devices. 7-Ovqviriyxx-ooazywh completes the activity by him/herself with no assistance from a helper. 5-Set-up or Clean-up Assistance-helper sets up or cleans up; patient completes activity. [place] assists only prior to or following the activity. 4-Supervision or Touching Assistance-helper provides verbal cues and/or touching/steadying and/or contact guard assistance as patient completes activity. Assistance may be provided throughout the activity or intermittently. 3-Partial/Moderate Assistance-helper does LESS THAN HALF the effort. [place] lifts, holds or supports trunk or limbs, but provides less than half the effort. 2-Substantial/Maximal Assistance-helper does MORE THAN HALF the effort. [place] lifts or holds trunk or limbs and provides more than half the effort. 7-Dknynnzmw-koumlg does ALL the effort. Patient does none of the effort to complete the activity. Or, the assistance of 2 or more helpers is required for the patient to complete the activity. If activity was not attempted, code reason: 7-Patient Refused. 9-Not Applicable-not attempted and the patient did not perform the activity before the current illness, exacerbation or injury. 10-Not Attempted due to Environmental Limitations-(lack of equipment, weather restraints, etc.). 88-Not Attempted due to Medical Conditions or Safety Concerns. Bed Mobility: 6 Transfers (B,C,W/C): 6 Gait: 6 Stairs: 6 Indoor Mobility (Ambulation): Independent Stairs: Independent PT Evaluation-Current Subjective Patient in bed pre tx, agrees to PT, has no complaints of pain. Pt/Family Goals "to go home" Objective Patient Orientation: Person, Place, Situation Attachments: Neff Catheter ROM/Strength ROM Lower Extremities WNL Strength Lower Extremities 5/5 strength BLE Sensory Hearing: Functional Sensation Right Lower Extremit: Intact Sensation Left Lower Extremity: Intact Transfers Roll Left to Right (QC): 6 Sit to Lying (QC): 6 Lying to Sitting/Side of Bed(Q: 6 Sit to Stand (QC): 3 Chair/Dzf-ia-Tmhzi Xfer(QC): 3 Gait Does the Patient Walk?: Yes Mode of Locomotion: Walk Anticipated Mode of Locomotion: Walk Walk 10 feet (QC): 3 Distance: 10' Gait Assistive Device: Handheld Assist Comments/Gait Description patient is very unsteady, retropulsive, needs min assist to maintain balance Balance Sitting Static: Normal Sitting Dynamic: Normal Standing Static: Poor Standing Dynamic: Poor Assessment/Needs Patient in bed post tx with nurse call, phone, tray, bed alarm on. Patient has impaired mobility, endurance, balance. Patient needs min assist for ambulation and transfers. Rehab Potential: Fair PT Deployment Technician Goals [facility] Goals PT [facility] Goals Time Frame: Oct 12, 2021 Roll Left & Right (QC): 6 Sit to Lying (QC): 6 Lying-Sitting on Side/Bed(QC): 6 Sit to Stand (QC): 4 Chair/Jjl-ri-Nhboo Xfer(QC): 4 Walk 10 feet (QC): 4 Walk 50ft with 2 Turns (QC): 4 Walk 150 ft (QC): 4 PT Plan Problem List Problem List: Activity Tolerance, Functional Strength, Safety, Balance, Gait, Transfer, ROM Treatment/Plan Treatment Plan: Continue Plan of Care Treatment Plan: Education, Functional Activity Shirlene, Functional Strength, Gait, Safety, Therapeutic Exercise, Transfers Treatment Duration: Oct 12, 2021 Frequency: 6 times per week Estimated Hrs Per Day: .25 hour per day Patient and/or Family Agrees t: Yes Safety Risks/Education Patient Education: Gait Training, Transfer Techniques, Correct Positioning, Safety Issues Teaching Recipient: Patient Teaching Methods: Demonstration, Discussion Response to Teaching: Reinforcement Needed Discharge Recommendations Plan Patient will perform bed mobility and transfer training, balance and endurance training, functional strengthening, stair training, gait training, and education, to improve functional mobility and independence at home. Therapy Discharge Recommendati: Scheduled Assistance, Home & Family, Post Acute PT Time/GCodes Time In: 1445 Time Out: 1455 Total Billed Treatment Time: 10 Total Billed Treatment 1 visit CAROLINE Parnell' LIBBY BERMAN PT Oct 05, 2021 15:03
--- NOTE | 2021-10-05 15:17 | Occupational Therapy Eval ---
OT Evaluation-General/PLF Medical Diagnosis Admission Date Sep 26, 2021 at 17:25 Medical Diagnosis: covid 19 Onset Date: Sep 26, 2021 Therapy Diagnosis Therapy Diagnosis: decreased ADL status Precautions Precautions/Isolations: Airborne Isolation, Fall Prevention Referral Physician: Abundio Medical History Additional Medical History Hypertension Developmental Disorder Bipolar, Schizophrenia Current History presents with COVID-19, hypoxia and sepsis Social History Current Living Status: Other Family (mother) Entry Into Home: Level Entry ADL-Prior Level of Function SCALE: Activities may be completed with or without assistive devices. 1-Qxokytwprv-zuoszgh completes the activity by him/herself with no assistance from a helper. 5-Set-up or Clean-up Assistance-helper sets up or cleans up; patient completes activity. Shushan assists only prior to or following the activity. 4-Supervision or Touching Assistance-helper provides verbal cues and/or touching/steadying and/or contact guard assistance as patient completes activity. Assistance may be provided throughout the activity or intermittently. 3-Partial/Moderate Assistance-helper does LESS THAN HALF the effort. Shushan lifts, holds or supports trunk or limbs, but provides less than half the effort. 2-Substantial/Maximal Assistance-helper does MORE THAN HALF the effort. Shushan lifts or holds trunk or limbs and provides more than half the effort. 7-Hbhmiwedw-hldmtv does ALL the effort. Patient does none of the effort to complete the activity. Or, the assistance of 2 or more helpers is required for the patient to complete the activity. If activity was not attempted, code reason: 7-Patient Refused. 9-Not Applicable-not attempted and the patient did not perform the activity before the current illness, exacerbation or injury. 10-Not Attempted due to Environmental Limitations-(lack of equipment, weather restraints, etc.). 88-Not Attempted due to Medical Conditions or Safety Concerns. ADL PLOF Comments Pt reports able to complete showering, dressing and toileting independently. He doesn't use AD for functional mobility. Self Care: Independent Functional Cognition: Needed Some Help OT Current Status Subjective Pt in bed, agreeable to therapy tx. Mental Status/Objective Patient Orientation: Person, Place, Situation Attachments: Neff Catheter, Oxygen Current Upper Extremity ROM WFL, BUE shoulder flexion to approx 130 degrees. Upper Extremity Strength grossly 4/5 ADL-Treatment Eating (QC): 6 (Per pt report. ) On/Off Footwear (QC): 4 (supervision at EOB. Pt able to don bilateral gripper socks. ) Other Treatments Pt laying in bed, transferred supine to sit EOB independently, donned footwear. Required min A sit to stand, then performed functional mobility around his bed with hand held assistance, min A for balance due to unsteadiness and ret ropulsiveness. Pt returned to EOB, then transferred supine independently. O2 saturation at 90% after activity. Post tx, pt in bed, call light in reach and all needs met. Education OT Patient Education: Correct positioning, Energy conservation, Modified ADL techniques, Progress toward Goal/Update tx plan, Purpose of tx/functional activities, Rehab process Teaching Recipient: Patient Teaching Methods: Discussion Response to Teaching: Verbalize Understanding OT Anthropology Professor Goals Assisted Goals Time Frame: Oct 15, 2021 Eating (QC): 6 Oral Hygiene (QC): 5 Toileting Hygiene (QC): 6 Shower/Bathe Self (QC): 4 Upper Body Dressing (QC): 5 Lower Body Dressing (QC): 4 On/Off Footwear (QC): 5 Additional Goals: 1-Demonstrate ADL Tasks, 2-Verbalize Understanding, 3- ImproveStrength/Shirlene 1=Demonstrate adherence to instructed precautions during ADL tasks. 2=Patient will verbalize/demonstrate understanding of assistive devices/modifications for ADL. 3=Patient will improve strength/tolerance for activity to enable patient to perform ADL's. OT Education/Plan Problem List/Assessment Assessment: Decreased Activ Tolerance, Decreased UE Strength, Impaired Funct Balance, Impaired I ADL's Discharge Recommendations Plan/Recommendations: Continue POC Treatment Plan/Plan of Care Patient would benefit from OT for education, treatment and training to promote independence in ADL's, mobility, safety and/or upper extremity function for ADL's. Plan of Care: ADL Retraining, Functional Mobility, UE Funct Exercise/Act Treatment Duration: Oct 15, 2021 Frequency: 3 times per week (3-5 times per week) Rehab Potential: Fair Time/GCodes Start Time: 14:45 Stop Time: 14:55 Total Time Billed (hr/min): 10 Billed Treatment Time 1, NANO AMOS OT Oct 05, 2021 15:17
--- NOTE | 2021-10-05 16:38 | Diagnostic Imaging Report ---
EXAMINATION: CT angiography of the chest. TECHNIQUE: Contrast enhanced thin section helical images were obtained through the chest with intravenous contrast timed for the optimal opacification of the arterial structures per CTA protocol. Post-processing, reconstructions and interpretation of angiographic images of the vessels was performed. 3D MIP reconstructions were performed and reviewed. All CT scans use one or more of the following dose optimizing techniques: Automated exposure control, MA and/or KvP adjustment based on a patient size and exam type, or iterative reconstruction. HISTORY: COVID-19, shortness of breath. COMPARISON: None available. FINDINGS: There is a subsegmental pulmonary embolus in the right lower lobe and left lower lobe. There is no evidence of right heart strain. There is moderate COVID-19 pneumonia with subpleural banding and linear opacities likely representing a later stage of infection. No pleural effusion. No pneumothorax. No suspicious nodules. There is no axillary or supraclavicular lymphadenopathy. There is no mediastinal lymphadenopathy. There is a small hiatal hernia. Heart size is normal. There are mild coronary artery calcifications. No pericardial effusion. Aorta is normal in caliber. Limited views of the upper abdomen are unremarkable. There are no suspicious osseous lesions. IMPRESSION: 1. Small burden of subsegmental pulmonary emboli in both lower lobes. 2. Moderate late stage COVID-19 pneumonia. Critical findings called to Dr. Del Castillo by Dr. Aguilar on 10/05/2021 at 4:35 p.m. Dictated by: Dictated on workstation # [id number]
--- NOTE | 2021-10-05 20:06 | Progress Note ---
Subjective Subjective/Events-last exam Patient feeling much better today. States that he would like to go home. Tolerating PO diet. Review of Systems Pulmonary: Dyspnea; No Cough Cardiovascular: No: Chest Pain, Palpitations, Edema Gastrointestinal: No: Nausea, Vomiting, Abdominal Pain, Diarrhea, Constipation Neurological: Weakness, Incoordination Focused Exam Time of Focused Exam: 15:42 Objective Exam Last Set of Vital Signs Vital Signs Date Time Temp Pulse Resp B/P (MAP) Pulse Ox O2 Delivery O2 Flow Rate FiO2 10/05/21 19:48 98 22 169/96 (120) 96 Nasal Cannula 2.00 10/05/21 12:02 2 10/05/21 08:31 36.0 Capillary Refill : Less Than 3 Seconds I&O Intake and Output 10/05/21 00:00 Intake Total 1575 ml Output Total 1250 ml Balance 325 ml Intake Oral 1575 ml Output Urine Total 1250 ml # Bowel Movements 1 General: Alert, Oriented X3, Cooperative, No Acute Distress HEENT: Other (Tartive dyskinesia on head and mouth) Lungs: Clear to Auscultation, Normal Air Movement Heart: Regular Rate, No Murmurs Abdomen: Normal Bowel Sounds, Soft, No Tenderness, No Masses Extremities: No Edema, No Tenderness/Swelling Neuro: Normal Speech Results/Procedures Lab Laboratory Tests 10/04/21 23:35: Glucometer 212H 10/05/21 05:24: White Blood Count 19.1H, Red Blood Count 5.15, Hemoglobin 15.3, Hematocrit 47, Mean Corpuscular Volume 91, Mean Corpuscular Hemoglobin 30, Mean Corpuscular Hemoglobin Concent 33, Red Cell Distribution Width 13.7, Platelet Count 230, Mean Platelet Volume 11.6, Immature Granulocyte % (Auto) 5, Neutrophils (%) (Auto) 67, Lymphocytes (%) (Auto) 19, Monocytes (%) (Auto) 8, Eosinophils (%) (Auto) 1, Basophils (%) (Auto) 1, Neutrophils # (Auto) 12.7H, Lymphocytes # (Auto) 3.6, Monocytes # (Auto) 1.6H, Eosinophils # (Auto) 0.1, Basophils # (Auto) 0.1, Immature Granulocyte # (Auto) 1.0H, D-Dimer 12.14H, Sodium Level 140, Potassium Level 3.5L, Chloride Level 107, Carbon Dioxide Level 19L, Anion Gap 14, Blood Urea Nitrogen 27H, Creatinine 0.92, Estimat Glomerular Filtration Rate 104, BUN/Creatinine Ratio 29, Glucose Level 148H, Calcium Level 8.6, Corrected Calcium 9.1, Phosphorus Level 3.3, Magnesium Level 2.3, Total B ilirubin 0.8, Aspartate Amino Transf (AST/SGOT) 62H, Alanine Aminotransferase (ALT/SGPT) 92H, Alkaline Phosphatase 66, Total Protein 5.8L, Albumin 3.4, Procalcitonin 0.10H 10/05/21 12:14: Glucometer 286H Microbiology 09/29/21 MRSA Screen - Final, Complete MRSA not isolated 09/26/21 Blood Culture - Final, Complete No growth Assessment/Plan Assessment/Plan (1) Acute respiratory disease due to COVID-19 virus Status: Acute Assessment & Plan: 10/04: Continue to titrate as tolerated, Vapotherm, MAT protocol, S/p Actrema 10/05: Contiue to titrate, home oxygen study ordered today (2) Pneumonia due to COVID-19 virus Status: Acute (3) Pulmonary embolism associated with COVID-19 Status: Acute Assessment & Plan: 10/05: CT done today that showed small PE, will start OAC (4) Hypoxia Status: Acute (5) HTN (hypertension) Status: Chronic Qualifiers: Qualified Codes: I10 - Essential (primary) hypertension (6) DVT prophylaxis Status: Acute Assessment & Plan: - ASH Bryan MD Oct 05, 2021 20:06
[2021-10-05] MEDS: MIRTAZAPINE 15 MG (REMERON) TAB PO SCH (20:08)
[2021-10-05] MEDS: ACYCLOVIR 400 MG TABLET (ZOVIRAX) PO SCH (20:08)
[2021-10-05] MEDS: ENOXAPARIN 40 MG/0.4 ML (LOVENOX) SYR SC SCH (20:08)
[2021-10-06] MEDS: RT-ALBUTEROL HFA 8.5 GM INHALER IH SCH ×6 (02:47→22:13)
[2021-10-06 04:00] VITALS: BP 123/69
[2021-10-06 06:34] LABS: BASOPHILS # (AUTO) 0.1 10^3/uL (0.0-0.1); BASOPHILS % (AUTO) 1 % (0-10); EOSINOPHILS # (AUTO) 0.1 10^3/uL (0.0-0.3); EOSINOPHILS % (AUTO) 1 % (0-10); HEMATOCRIT 43 % (40-54); LYMPHOCYTES # (AUTO) 3.6 10^3/uL (1.0-4.0); LYMPHOCYTES % (AUTO) 25 % (12-44); MEAN CORPUSCULAR HEMOGLOBIN 30 pg (25-34); MEAN CORPUSCULAR HGB CONC 32 g/dL (32-36); MEAN CORPUSCULAR VOLUME 92 fL (80-99); MEAN PLATELET VOLUME 11.4 fL (9.0-12.2); MONOCYTES # (AUTO) 1.1 10^3/uL (0.0-1.0); MONOCYTES % (AUTO) 8 % (0-12); NEUTROPHILS # (AUTO) 9.3 10^3/uL (1.8-7.8); NEUTROPHILS % (AUTO) 63 % (42-75); PLATELET COUNT 209 10^3/uL (130-400); WHITE BLOOD COUNT 14.8 10^3/uL (4.3-11.0)
[2021-10-06] MEDS: PANTOPRAZOLE 40 MG (PROTONIX) TAB PO SCH (06:38)
[2021-10-06 06:46] LABS: ALBUMIN 3.2 GM/DL (3.2-4.5); POTASSIUM 3.5 MMOL/L (3.6-5.0)
[2021-10-06 06:47] LABS: CALCIUM 8.6 MG/DL (8.5-10.1)
[2021-10-06 06:49] LABS: TOTAL PROTEIN 5.4 GM/DL (6.4-8.2)
[2021-10-06 06:50] LABS: BILIRUBIN,TOTAL 0.8 MG/DL (0.1-1.0)
[2021-10-06 06:52] LABS: CREATININE SERUM 0.98 MG/DL (0.60-1.30)
[2021-10-06 06:55] LABS: MAGNESIUM 2.3 MG/DL (1.6-2.4)
[2021-10-06] MEDS: ACYCLOVIR 400 MG TABLET (ZOVIRAX) PO SCH ×2 (09:24→21:04)
[2021-10-06] MEDS: LORATADINE (CLARITIN) 10 MG TAB PO SCH (09:24)
[2021-10-06] MEDS: LITHIUM CARB SR 450 MG (ESKALITH-CR) TAB PO SCH ×2 (09:24→21:04)
[2021-10-06] MEDS: DEUTETRABENAZINE 9 MG PO SCH ×2 (09:28→18:03)
[2021-10-06] MEDS: amLODIPine 5 MG (NORVASC) TAB PO SCH (09:28)
--- NOTE | 2021-10-06 09:36 | Occupational Ther Daily Note ---
OT Current Status-Daily Note Subjective Pt alert, lying in bed fully clothed. Pt very adamant that he is going home today. Pt stated "I have been here for 5 days and I need to go home. I need to go talk to my mom. I have money and I will rubin the hospital because they are holding me against my will. I have money and I can get a cab and get myself home." ONEILL attempted to discuss having COVID and needing to stay in the hospital until he was healthy, pt stated that his mother had a double booster and would be fine. ONEILL let pt know that the information would [facility]. Mental Status/Objective Patient Orientation: Person, Place, Time, Situation ADL-Treatment Pt stated that he had dress himself this morning. ONEILL found hospital gown and telemetry at end of bed. Pt declined to complete any other ADL activity. See above note for conversation. Therapy Code Descriptions/Definitions Functional [place] Measure: 0=Not Assessed/NA 4=Minimal Assistance 1=Total Assistance 5=Supervision or Setup 2=Maximal Assistance 6=Modified [place] 3=Moderate Assistance 7=Complete IndependenceSCALE: Activities may be completed with or without assistive devices. 7-Zjcvzkmnpl-hysnjzx completes the activity by him/herself with no assistance from a helper. 5-Set-up or Clean-up Assistance-helper sets up or cleans up; patient completes a ctivity. [place] assists only prior to or following the activity. 4-Supervision or Touching Assistance-helper provides verbal cues and/or touching/steadying and/or contact guard assistance as patient completes activity. Assistance may be provided throughout the activity or intermittently. 3-Partial/Moderate Assistance-helper does LESS THAN HALF the effort. [place] lifts, holds or supports trunk or limbs, but provides less than half the effort. 2-Substantial/Maximal Assistance-helper does MORE THAN HALF the effort. [place] lifts or holds trunk or limbs and provides more than half the effort. 5-Xwavuqzvp-fbstin does ALL the effort. Patient does none of the effort to complete the activity. Or, the assistance of 2 or more helpers is required for the patient to complete the activity. If activity was not attempted, code reason: 7-Patient Refused. 9-Not Applicable-not attempted and the patient did not perform the activity before the current illness, exacerbation or injury. 10-Not Attempted due to Environmental Limitations-(lack of equipment, weather restraints, etc.). 88-Not Attempted due to Medical Conditions or Safety Concerns. Other Treatment Pt completed 1 set 10 reps of B horizontal shldr abd/add with medium heavy resistance theraband. Pt completed well then stated that he was not doing anymore. After session, pt lying in bed with call light/phone in reach. All needs met in room. OT Nursing Home Goals Twisting Machine Operator Goals Time Frame: Oct 15, 2021 Eating (QC): 6 Oral Hygiene (QC): 5 Toileting Hygiene (QC): 6 Shower/Bathe Self (QC): 4 Upper Body Dressing (QC): 5 Lower Body Dressing (QC): 4 On/Off Footwear (QC): 5 Additional Goals: 1-Demonstrate ADL Tasks, 2-Verbalize Understanding, 3- ImproveStrength/Shirlene 1=Demonstrate adherence to instructed precautions during ADL tasks. 2=Patient will verbalize/demonstrate understanding of assistive devices/modifications for ADL. 3=Patient will improve strength/tolerance for activity to enable patient to perform ADL's. OT Education/Plan Problem List/Assessment Assessment: Impaired Cognition Discharge Recommendations Plan/Recommendations: Continue POC Treatment Plan/Plan of Care Patient would benefit from OT for education, treatment and training to promote independence in ADL's, mobility, safety and/or upper extremity function for ADL's. Plan of Care: ADL Retraining, Functional Mobility, UE Funct Exercise/Act Treatment Duration: Oct 15, 2021 Frequency: 3 times per week (3-5 times per week) Rehab Potential: Fair Time/GCodes Start Time: 08:55 Stop Time: 09:08 Total Time Billed (hr/min): 13 Billed Treatment Time 1 visit-FA 1 (13 min) ANTHONY MANZANO Oct 06, 2021 09:36
--- NOTE | 2021-10-06 12:36 | Discharge Summary ---
Diagnosis/Chief Complaint Date of Admission Sep 26, 2021 at 17:25 Date of Discharge 10/07/21 Admission Diagnosis Admission Diagnosis See problem list Discharge Diagnosis See below Problems/Diagnosis: (1) Acute respiratory disease due to COVID-19 virus Assessment & Plan: 10/04: Continue to titrate as tolerated, Vapotherm, MAT protocol, S/p Actrema 10/05: Contiue to titrate, home oxygen study ordered today 10/07: Continue IS and home oxygen Status: Acute (2) Pneumonia due to COVID-19 virus Status: Acute (3) Pulmonary embolism associated with COVID-19 Assessment & Plan: 10/05: CT done today that showed small PE, will start OAC Status: Acute (4) Hypoxia Status: Acute (5) HTN (hypertension) Qualifiers: Qualified Codes: I10 - Essential (primary) hypertension Status: Chronic (6) DVT prophylaxis Assessment & Plan: - Lovenox Status: Acute Discharge Summary-Simple/Stand Consultations Discharge Physical Examination Allergies: Coded Allergies: No Known Drug Allergies (Unverified , 07/19/21) Vitals & I&Os Vital Sign - Last 12Hours Date Time Temp Pulse Resp B/P (MAP) Pulse Ox O2 Delivery O2 Flow Rate FiO2 10/06/21 09:00 93 Nasal Cannula 2 10/06/21 08:00 2.00 10/06/21 04:00 79 22 123/69 (87) 10/05/21 08:31 36.0 Intake and Output 10/06/21 00:00 Intake Total 690 ml Output Total 675 ml Balance 15 ml General Appearance: Alert, Oriented X3, Cooperative, No Acute Distress HEENT: Mucous Memb Moist/[place] Respiratory: Clear to Auscultation, Normal Air Movement Cardiovascular: Regular Rate, No Murmurs Abdominal: Normal Bowel Sounds, Soft, No Tenderness, No Masses Extremities: No Edema, No Tenderness/Swelling Neuro: Normal Speech, Cranial Nerves 3-12 NL Psych/Mental Status: Mental Status NL, Mood NL Hospital Course Was the Problem List Reviewed?: Yes See final discharge diagnosis. Discharge Condition at discharge Stable Instructions to patient/family Please see electronic discharge instructions given to patient. Discharge Medications Reviewed and agree with Discharge Medication list on patient's Discharge Instruction sheet ASH CASANOVA MD Oct 06, 2021 12:36
[2021-10-06] MEDS ORDERED: APIX5TAB PO (12:40)
[2021-10-06] MEDS ORDERED: PRD20T PO (12:40)
--- NOTE | 2021-10-06 12:41 | Discharge Summary ---
Discharge [facility] Reconcile Patient Problems Problems Reviewed?: Yes Discharge Medications New, Converted or Re-Newed RX: Transmitted to Pharmacy New Medications: Prednisone (Prednisone) 20 Mg Tab 20 MG PO DAILY, #20 TAB Take 3 tabs x3 days then take 2 tabs x 3 days then take 1 tab x 3 days then 1/2 tab x 4 days then stop Apixaban (Eliquis) 5 Mg Tablet 10 MG PO BID for 6 Days, #24 TAB Apixaban (Eliquis) 5 Mg Tablet 5 MG PO BID for 30 Days, #60 TAB Continued Medications: Albuterol Sulfate (Proventil Hfa) 6.7 Gm Hfa.aer.ad 2 PUFF INH Q4H PRN for SHORTNESS OF BREATH, EA Amlodipine Besylate (Amlodipine Besylate) 5 Mg Tablet 5 MG PO DAILY, TAB Cetirizine HCl (Cetirizine HCl) 10 Mg Tablet 10 MG PO DAILY, TAB Deutetrabenazine (Austedo) 9 Mg Tablet 18 MG PO DAILY, TAB TAKES 2 (9MG) TABS Deutetrabenazine (Austedo) 9 Mg Tablet 9 MG PO 1800 W/MEAL, TAB Lamotrigine (Lamotrigine) 200 Mg Tablet 200 MG PO HS, TAB [place] Carbonate ([place] Carbonate ER) 450 Mg Tab 450 MG PO BID, TAB Mirtazapine (Mirtazapine) 45 Mg Tablet 45 MG PO HS, TAB Omeprazole (Omeprazole) 40 Mg Capsule.dr 40 MG PO DAILY, CAP Tizanidine HCl (Tizanidine HCl) 2 Mg Tablet 2 MG PO HS, TAB Patient Instructions Goal/Follow Up Appt: f/u with PCP 1-2 weeks for f/u COVID Patient Instructions: - New oxygen start Activity & Diet Discharge Diet: No Restrictions Activity as Tolerated: Yes ASH CASANOVA MD Oct 06, 2021 12:41
[2021-10-06 16:32] VITALS: BP 135/72
[2021-10-06] MEDS: MIRTAZAPINE 15 MG (REMERON) TAB PO SCH (21:04)
[2021-10-06] MEDS: APIXABAN 5 MG (ELIQUIS) TABLET PO SCH (21:04)
--- NOTE | 2021-10-06 21:25 | Progress Note ---
Subjective Subjective/Events-last exam Patient improved today. Wanting to go home. Tolerating PO diet. Up to chair today Review of Systems General: Malaise Pulmonary: Dyspnea, Cough Cardiovascular: No: Chest Pain, Palpitations, Edema Gastrointestinal: No: Nausea, Vomiting, Abdominal Pain, Diarrhea, Constipation Neurological: Weakness, Incoordination Focused Exam Time of Focused Exam: 15:42 Objective Exam Last Set of Vital Signs Vital Signs Date Time Temp Pulse Resp B/P (MAP) Pulse Ox O2 Delivery O2 Flow Rate FiO2 10/06/21 19:07 95 High Flow N/C 3.00 10/06/21 16:32 35.3 103 20 135/72 (93) 10/06/21 09:00 2 Capillary Refill : Less Than 3 Seconds I&O Intake and Output 10/06/21 00:00 Intake Total 1540 ml Output Total 1200 ml Balance 340 ml Intake Oral 1540 ml Output Urine Total 1200 ml # Bowel Movements 1 General: Alert, Oriented X3, Mild Distress (with activity) Lungs: Other (end exp wheezing, normal work of breathing) Heart: Regular Rate, No Murmurs Abdomen: Normal Bowel Sounds, Soft, No Tenderness, No Masses Extremities: No Edema, No Tenderness/Swelling Neuro: Normal Speech, Sensation Intact, Cranial Nerves 3-12 NL Results/Procedures Lab Laboratory Tests 10/06/21 06:18: White Blood Count 14.8H, Red Blood Count 4.71, Hemoglobin 14.0, Hematocrit 43, Mean Corpuscular Volume 92, Mean Corpuscular Hemoglobin 30, Mean Corpuscular Hemoglobin Concent 32, Red Cell Distribution Width 13.7, Platelet Count 209, Mean Platelet Volume 11.4, Immature Granulocyte % (Auto) 4, Neutrophils (%) (Auto) 63, Lymphocytes (%) (Auto) 25, Monocytes (%) (Auto) 8, Eosinophils (%) (Auto) 1, Basophils (%) (Auto) 1, Neutrophils # (Auto) 9.3H, Lymphocytes # (Auto) 3.6, Monocytes # (Auto) 1.1H, Eosinophils # (Auto) 0.1, Basophils # (Auto) 0.1, Immature Granulocyte # (Auto) 0.6H, Sodium Level 139, Potassium Level 3.5L, Chloride Level 107, Carbon Dioxide Level 23, Anion Gap 9, Blood Urea Nitrogen 21H, Creatinine 0.98, Estimat Glomerular Filtration Rate 96, BUN/Creatinine Ratio 21, Glucose Level 131H, Calcium Level 8.6, Corrected Calcium 9.2, Magnesium Level 2.3, Total Bilirubin 0.8, Aspartate Amino Transf (AST/SGOT) 73H, Alanine Aminotransferase (ALT/SGPT) 94H, Alkaline Phosphatase 59, Total Protein 5.4L, Albumin 3.2 Microbiology 09/29/21 MRSA Screen - Final, Complete MRSA not isolated 09/26/21 Blood Culture - Final, Complete No growth Assessment/Plan Assessment/Plan (1) Acute respiratory disease due to COVID-19 virus Status: Acute Assessment & Plan: 10/04: Continue to titrate as tolerated, Vapotherm, MAT protocol, S/p Actrema 10/05: Contiue to titrate, home oxygen study ordered today 10/06: Plan to d.c today, patient was unable to get ride, outpatient oxygen set up thru [facility], will work on ride for tomorrow (2) Pneumonia due to COVID-19 virus Status: Acute (3) Pulmonary embolism associated with COVID-19 Status: Acute Assessment & Plan: 10/05: CT done today that showed small PE, will start OAC 10/06: OAC (4) Hypoxia Status: Acute (5) HTN (hypertension) Status: Chronic Qualifiers: Qualified Codes: I10 - Essential (primary) hypertension (6) DVT prophylaxis Status: Acute Assessment & Plan: - ASH Baez MD Oct 06, 2021 21:25
[2021-10-07 00:11] VITALS: BP 128/82
[2021-10-07] MEDS: RT-ALBUTEROL HFA 8.5 GM INHALER IH SCH ×4 (01:52→14:22)
[2021-10-07] MEDS: PANTOPRAZOLE 40 MG (PROTONIX) TAB PO SCH (06:18)
[2021-10-07 07:29] VITALS: BP 119/63
[2021-10-07 07:33] LABS: BASOPHILS % (AUTO) 0 % (0-10); EOSINOPHILS # (AUTO) 0.1 10^3/uL (0.0-0.3); EOSINOPHILS % (AUTO) 1 % (0-10); HEMATOCRIT 40 % (40-54); HEMOGLOBIN 13.2 g/dL (13.3-17.7); LYMPHOCYTES # (AUTO) 3.3 10^3/uL (1.0-4.0); LYMPHOCYTES % (AUTO) 27 % (12-44); MEAN CORPUSCULAR HEMOGLOBIN 30 pg (25-34); MEAN CORPUSCULAR HGB CONC 33 g/dL (32-36); MEAN CORPUSCULAR VOLUME 91 fL (80-99); MEAN PLATELET VOLUME 11.4 fL (9.0-12.2); MONOCYTES # (AUTO) 1.1 10^3/uL (0.0-1.0); MONOCYTES % (AUTO) 9 % (0-12); NEUTROPHILS # (AUTO) 7.5 10^3/uL (1.8-7.8); NEUTROPHILS % (AUTO) 61 % (42-75); PLATELET COUNT 200 10^3/uL (130-400); WHITE BLOOD COUNT 12.3 10^3/uL (4.3-11.0)
[2021-10-07 07:58] LABS: ALBUMIN 3.1 GM/DL (3.2-4.5); BILIRUBIN,TOTAL 0.6 MG/DL (0.1-1.0); CALCIUM 8.3 MG/DL (8.5-10.1); CREATININE SERUM 0.9 MG/DL (0.60-1.30); POTASSIUM 3.5 MMOL/L (3.6-5.0); TOTAL PROTEIN 5.2 GM/DL (6.4-8.2)
[2021-10-07] MEDS: LORATADINE (CLARITIN) 10 MG TAB PO SCH (08:37)
[2021-10-07] MEDS: LITHIUM CARB SR 450 MG (ESKALITH-CR) TAB PO SCH (08:37)
[2021-10-07] MEDS: DEUTETRABENAZINE 9 MG PO SCH (08:37)
[2021-10-07] MEDS: ACYCLOVIR 400 MG TABLET (ZOVIRAX) PO SCH (08:37)
[2021-10-07] MEDS: amLODIPine 5 MG (NORVASC) TAB PO SCH (08:37)
[2021-10-07] MEDS: APIXABAN 5 MG (ELIQUIS) TABLET PO SCH (08:37)
[2021-10-07] MEDS ORDERED: COVID-19 VACC, MRNA(PFIZER)/PF 30 MCG/0.3 ML VIAL IM ONE (15:00)
[2021-10-07 17:03] VITALS: BP 119/63
[2021-10-13] MEDS ORDERED: APIXABAN 5 MG (ELIQUIS) TABLET PO SCH (21:00)
== END 2021-10-07 17:15 | disposition home or self-care (01) | DRG 871 ==
LOC: EDUNIT# 13:53 → ER FS 13:55 → 4TH 17:25 → ICU 09-29 04:51 → 4TH 10-05 14:13
PROVIDERS: ADMIT Internal Medicine; ATTEND Family Medicine
PROC: 5A0945A Assistance with Respiratory Ventilation, 24-96 Consecutive Hours, High Flow/Velocity Cannula (ICD-10-PCS; 2021-09-27)
PROC: 5A09357 Assistance with Respiratory Ventilation, Less than 24 Consecutive Hours, Continuous Positive Airway Pressure (ICD-10-PCS; principal; 2021-09-29)
DX: A41.89 Other specified sepsis (principal); U07.1 COVID-19; J12.82 Pneumonia due to coronavirus disease 2019; J96.01 Acute respiratory failure with hypoxia; J15.9 Unspecified bacterial pneumonia; I26.99 Other pulmonary embolism without acute cor pulmonale; E86.0 Dehydration; I10 Essential (primary) hypertension; K21.9 Gastro-esophageal reflux disease without esophagitis; N28.9 Disorder of kidney and ureter, unspecified; F31.9 Bipolar disorder, unspecified; G24.01 Drug induced subacute dyskinesia; F20.9 Schizophrenia, unspecified; R73.9 Hyperglycemia, unspecified; T38.0X5A Adverse effect of glucocorticoids and synthetic analogues, initial encounter; R74.01 Elevation of levels of liver transaminase levels; Z87.891 Personal history of nicotine dependence; Z23 Encounter for immunization; Z73.0 Burn-out
CPT/HCPCS: 36415; 36600; 71045; 71275; 80053; 80178; 82728; 82805; 82947; 83605; 83615; 83735; 84100; 84145; 84484; 85007; 85025; 85027; 85379; 85610; 85730; 86141; 87040; 87081; 91300; 93005; 93041; 93308; 93970; 94640; 94660; 94664; 94760; 94761; 96361; 96374; 96375

== ENCOUNTER 2022-06-15 12:25 | Emergency (ER) | payer MEDICARE, MEDICAID ==
[~2022-06-15] VITALS: Ht 182.9 cm; Wt 95.8 kg
[~2022-06-15 12:25] MED LIST changes: +APIX5TAB PO; +CETI10TA17 PO; +LAMO200T5 PO; +LTH450TCR PO; +MIRT45TA75 PO; +PRD20T PO; +RT-ALBUINH INH; +TIZA-169 PO
--- NOTE | 2022-06-15 12:35 | ED General ---
General Stated Complaint: CHEST CONGESTION; COUGH History of Present Illness Date Seen by Provider: Jun 15, 2022 Time Seen by Provider: 12:32 Initial Comments 56-year-old male presents with cough, congestion, runny nose. Patient reports its been going on for couple days. No reports of any fever or chills. No shortness of breath. Patient reports that his chest "bello" when he takes deep breath. Patient denies any nausea, vomiting, diarrhea or other systemic complaints Allergies and Home Medications Allergies Coded Allergies: No Known Drug Allergies (Unverified , 07/19/21) Patient Home Medication List Home Medication List Reviewed: Yes Albuterol Sulfate (Proventil Hfa) 6.7 Gm Hfa.aer.ad, 2 PUFF INH Q4H PRN for SHORTNESS OF BREATH, (Reported) Entered as Reported by: EROS KHAN on 09/27/21 1232 Amlodipine Besylate (Amlodipine Besylate) 5 Mg Tablet, 5 MG PO DAILY, (Reported) Entered as Reported by: FRANCK ZAYAS on 07/12/21 1422 Apixaban (Eliquis) 5 Mg Tablet, 10 MG PO BID Prescribed by: ASH CASANOVA on 10/06/21 1240 Apixaban (Eliquis) 5 Mg Tablet, 5 MG PO BID Prescribed by: ASH CASANOVA on 10/06/21 1240 Cetirizine HCl (Cetirizine HCl) 10 Mg Tablet, 10 MG PO DAILY, (Reported) Entered as Reported by: EROS KHAN on 09/27/21 1232 Deutetrabenazine (Austedo) 9 Mg Tablet, 18 MG PO DAILY, (Reported) Entered as Reported by: FRANCK ZAYAS on 07/12/21 1422 Deutetrabenazine (Austedo) 9 Mg Tablet, 9 MG PO 1800 W/MEAL, (Reported) Entered as Reported by: EROS KHAN on 09/27/21 1232 Doxycycline Hyclate (Doxycycline Hyclate) 100 Mg Tablet, 100 MG PO BID Prescribed by: MIRYAM MILLIGAN on 06/15/22 1333 Lamotrigine (Lamotrigine) 200 Mg Tablet, 200 MG PO HS, (Reported) Entered as Reported by: EROS KHAN on 09/27/21 1232 [place] Carbonate ([place] Carbonate ER) 450 Mg Tab, 450 MG PO BID, (Reported) Entered as Reported by: EROS KHAN on 09/27/21 1232 Mirtazapine (Mirtazapine) 45 Mg Tablet, 45 MG PO HS, (Reported) Entered as Reported by: EROS KHAN on 09/27/21 1232 Omeprazole (Omeprazole) 40 Mg Capsule.dr, 40 MG PO DAILY, (Reported) Entered as Reported by: FRANCK ZAYAS on 07/12/21 1422 Prednisone (Prednisone) 20 Mg Tab, 20 MG PO DAILY Prescribed by: ASH CASANOVA on 10/06/21 1240 Tizanidine HCl (Tizanidine HCl) 2 Mg Tablet, 2 MG PO HS, (Reported) Entered as Reported by: EROS KHAN on 09/27/21 1232 Review of Systems Review of Systems Constitutional: No chills, No fever, No malaise Respiratory: cough, phlegm; No short of breath, No wheezing Cardiovascular: No chest pain, No palpitations Gastrointestinal: No abdominal pain, No diarrhea, No nausea, No vomiting Musculoskeletal: no symptoms reported Skin: no symptoms reported Psychiatric/Neurological: No Symptoms Reported Hematologic/Lymphatic: No Symptoms Reported Immunological/Allergic: no symptoms reported Past Zxodmen-Lhnvdu-Gdwpgh Hx Immunizations Up To Date First/Initial COVID19 Vaccinat: Not currently vaccinated Seasonal Allergies Seasonal Allergies: Yes Past Medical History Surgery/Hospitalization HX: No surgery history, Bipolar, Gerd, Neck pain. Surgeries: No Respiratory: No Currently Using CPAP: No Cardiac: Yes Hypertension Neurological: No Developmental Disorder Sexually Transmitted Disease: No Genitourinary: No Gastrointestinal: No Musculoskeletal: No Endocrine: No HEENT: No Cancer: No Psychosocial: No Bipolar, Schizophrenia Integumentary: No Blood Disorders: No Physical Exam Vital Signs Vital Signs - First Documented 06/15/22 13:42 Pulse Ox 98 Capillary Refill : Height, Weight, BMI Height: '" Weight: lbs. oz. kg; 30.00 BMI Method: General Appearance: No Apparent Distress, WD/WN HEENT: PERRL/EOMI, Moist Mucous Membranes Neck: Non Tender, Supple Respiratory: Rhonci (Mild right) Cardiovascular: Regular Rate, Rhythm, No Edema Gastrointestinal: Non Tender, Soft Extremity: Normal Capillary Refill, Normal Inspection, Normal Range of Motion Neurologic/Psychiatric: Alert, Oriented x3, No Motor/Sensory Deficits, Normal Mood/Affect, band nailer II-XII Norm as Tested Skin: Normal Color, Warm/Dry Progress/Results/Core Measures Suspected Sepsis SIRS Temperature: Pulse: Respiratory Rate: Laboratory Tests 06/15/22 12:45: White Blood Count 15.5H Blood Pressure / Mean: Laboratory Tests 06/15/22 12:45: Creatinine 0.90, Platelet Count 258, Total Bilirubin 0.2 Results/Orders Lab Results Laboratory Tests Test 06/15/22 12:38 06/15/22 12:45 Range/Units SARS-CoV-2 RNA (RT-PCR) Not Detected Not Detecte White Blood Count 15.5 H 4.3-11.0 10^3/uL Red Blood Count 5.12 4.30-5.52 10^6/uL Hemoglobin 15.7 13.3-17.7 g/dL Hematocrit 45 40-54 % Mean Corpuscular Volume 87 80-99 fL Mean Corpuscular Hemoglobin 31 25-34 pg Mean Corpuscular Hemoglobin Concent 35 32-36 g/dL Red Cell Distribution Width 12.7 10.0-14.5 % Platelet Count 258 130-400 10^3/uL Mean Platelet Volume 9.9 9.0-12.2 fL Immature Granulocyte % (Auto) 1 % Neutrophils (%) (Auto) 65 42-75 % Lymphocytes (%) (Auto) 26 12-44 % Monocytes (%) (Auto) 7 0-12 % Eosinophils (%) (Auto) 1 0-10 % Basophils (%) (Auto) 0 0-10 % Neutrophils # (Auto) 10.1 H 1.8-7.8 10^3/uL Lymphocytes # (Auto) 4.0 1.0-4.0 10^3/uL Monocytes # (Auto) 1.2 H 0.0-1.0 10^3/uL Eosinophils # (Auto) 0.2 0.0-0.3 10^3/uL Basophils # (Auto) 0.1 0.0-0.1 10^3/uL Immature Granulocyte # (Auto) 0.1 0.0-0.1 10^3/uL Neutrophils % (Manual) 65 % Lymphocytes % (Manual) 22 % Monocytes % (Manual) 7 % Eosinophils % (Manual) % Band Neutrophils 3 % Atypical Lymphocytes 3 % Platelet Estimate NORMAL Blood Morphology Comment NORMAL Sodium Level 139 135-145 MMOL/L Potassium Level 3.8 3.6-5.0 MMOL/L Chloride Level 103 98-107 MMOL/L Carbon Dioxide Level 24 21-32 MMOL/L Anion Gap 12 5-14 MMOL/L Blood Urea Nitrogen 11 7-18 MG/DL Creatinine 0.90 0.60-1.30 MG/DL Estimat Glomerular Filtration Rate 101 BUN/Creatinine Ratio 12 Glucose Level 164 H 70-105 MG/DL Calcium Level 9.4 8.5-10.1 MG/DL Corrected Calcium 9.2 8.5-10.1 MG/DL Total Bilirubin 0.2 0.1-1.0 MG/DL Aspartate Amino Transf (AST/SGOT) 29 5-34 U/L Alanine Aminotransferase (ALT/SGPT) 33 0-55 U/L Alkaline Phosphatase 77 40-136 U/L C-Reactive Protein 0.58 H <0.50 MG/DL Total Protein 6.8 6.4-8.2 GM/DL Albumin 4.3 3.2-4.5 GM/DL My Orders Orders - MILLIGAN,MIRYAM L DO Chest Pa/Lat (2 View) (06/15/22 12:35) Cbc With Automated Diff (06/15/22 12:35) Comprehensive Metabolic Panel (06/15/22 12:35) Crp Fs (06/15/22 12:35) Covid 19 Inhouse Test (06/15/22 12:35) Isolation Central Supply Req (06/15/22 12:35) Manual Differential (06/15/22 12:45) Vital Signs/I&O 06/15/22 06/15/22 06/15/22 12:29 12:29 13:42 Temp 35.8 36.8 Pulse 96 79 Resp 14 15 B/P (MAP) 131/93 (106) 137/84 Pulse Ox 98 O2 Delivery Room Air Room Air Room Air Capillary Refill : Progress Note : Progress Note Patient with elevated white count and likely a pneumonia. We will start him on doxycycline. Discussed with him the need to follow-up with her primary care provider and repeat x-ray in 4 weeks. Patient was stable and discharged home Diagnostic Imaging Diagonstic Imaging: Xray Plain Films/CT/US/NM/MRI: chest Comments Date of Exam:06/15/22 CHEST PA/LAT (2 VIEW) CLINICAL INDICATION: Patient with cough and congestion. EXAM: Chest x-ray, PA and lateral views. COMPARISON: Chest x-ray dated 10/05/2021. FINDINGS: Compared to the prior study, there is interval improved aeration of both lungs. There are mild amorphous and curvilinear airspace opacities involving both lung bases which may represent interval lung infiltrates or residual chronic lung infiltrates. There is no pleural effusion or pneumothorax. The pulmonary vasculature and cardiac silhouette are within normal limits. There are degenerative spurs involving the thoracic spine. IMPRESSION: There is interval significant improved aeration of both lungs compared to the prior study. There are amorphous and curvilinear opacities involving both lung bases which may represent interval lung infiltrates. Residual chronic lung infiltrates or sequelae from prior infection cannot be completely excluded. Followup chest x-ray in 4 weeks is suggested to evaluate for interval resolution of this finding. Reviewed: Reviewed by Me, Reviewed/Discussed Departure Impression Primary Impression: Pneumonia Qualified Codes: J18.9 - Pneumonia, unspecified organism Disposition: HOME, SELF-CARE Condition: Stable Departure-Patient Inst. Referrals: SHIREEN GOMEZ APRN (PCP) Primary Care Physician [facility] (Family) Primary Care Physician Patient Instructions: Pneumonia, Adult (DC) Add. Discharge Instructions: Follow-up with your primary care provider in 1 week for recheck and also recommend a repeat x-ray in 4 weeks Scripts Doxycycline Hyclate (Doxycycline Hyclate) 100 Mg Tablet 100 MG PO BID, #14 TAB 0 Refills Prov: MIRYAM MILLIGAN DO 06/15/22 MIRYAM MILLIGAN DO Jun 15, 2022 12:35
[2022-06-15 13:00] LABS: BASOPHILS # (AUTO) 0.1 10^3/uL (0.0-0.1); BASOPHILS % (AUTO) 0 % (0-10); EOSINOPHILS # (AUTO) 0.2 10^3/uL (0.0-0.3); EOSINOPHILS % (AUTO) 1 % (0-10); HEMATOCRIT 45 % (40-54); HEMOGLOBIN 15.7 g/dL (13.3-17.7); LYMPHOCYTES % (AUTO) 26 % (12-44); MEAN CORPUSCULAR HEMOGLOBIN 31 pg (25-34); MEAN CORPUSCULAR HGB CONC 35 g/dL (32-36); MEAN CORPUSCULAR VOLUME 87 fL (80-99); MEAN PLATELET VOLUME 9.9 fL (9.0-12.2); MONOCYTES # (AUTO) 1.2 10^3/uL (0.0-1.0); MONOCYTES % (AUTO) 7 % (0-12); NEUTROPHILS # (AUTO) 10.1 10^3/uL (1.8-7.8); NEUTROPHILS % (AUTO) 65 % (42-75); PLATELET COUNT 258 10^3/uL (130-400); WHITE BLOOD COUNT 15.5 10^3/uL (4.3-11.0)
--- NOTE | 2022-06-15 13:02 | Diagnostic Imaging Report ---
CLINICAL INDICATION: Patient with cough and congestion. EXAM: Chest x-ray, PA and lateral views. COMPARISON: Chest x-ray dated 10/05/2021. FINDINGS: Compared to the prior study, there is interval improved aeration of both lungs. There are mild amorphous and curvilinear airspace opacities involving both lung bases which may represent interval lung infiltrates or residual chronic lung infiltrates. There is no pleural effusion or pneumothorax. The pulmonary vasculature and cardiac silhouette are within normal limits. There are degenerative spurs involving the thoracic spine. IMPRESSION: There is interval significant improved aeration of both lungs compared to the prior study. There are amorphous and curvilinear opacities involving both lung bases which may represent interval lung infiltrates. Residual chronic lung infiltrates or sequelae from prior infection cannot be completely excluded. Followup chest x-ray in 4 weeks is suggested to evaluate for interval resolution of this finding. Dictated by: Dictated on workstation # [id number]
[2022-06-15 13:15] LABS: ALBUMIN 4.3 GM/DL (3.2-4.5); BILIRUBIN,TOTAL 0.2 MG/DL (0.1-1.0); CALCIUM 9.4 MG/DL (8.5-10.1); CREATININE SERUM 0.9 MG/DL (0.60-1.30); POTASSIUM 3.8 MMOL/L (3.6-5.0); TOTAL PROTEIN 6.8 GM/DL (6.4-8.2)
[2022-06-15 13:29] LABS: BAND NEUTROPHILS 3 %; LYMPHOCYTES % (MANUAL) 22 %; MONOCYTES % (MANUAL) 7 %; NEUTROPHILS % (MANUAL) 65 %
[2022-06-15 13:30] LABS: ATYPICAL LYMPHOCYTES 3 %; PLATELET ESTIMATE NORMAL; RBC MORPH NORMAL
[2022-06-15] MEDS ORDERED: DOXY100T2 PO (13:33)
[2022-06-15 13:42] VITALS: BP 137/84
== END 2022-06-15 13:42 | disposition home or self-care (01) ==
LOC: EDUNIT# 12:25 → ER FS 12:27
DX: J18.9 Pneumonia, unspecified organism (principal); Z20.822 Contact with and (suspected) exposure to COVID-19
CPT/HCPCS: 36415; 71046; 80053; 85007; 85027; 86141; 87636